=== PATIENT | male | born 1985 | race Caucasian/White ===

== ENCOUNTER 2018-12-18 00:53 | Inpatient (IN) | payer SELFPAY ==
[2018-12-18] VITALS (7 sets, daily range): BP systolic 126–160
[~2018-12-18] VITALS: Ht 185.4 cm; Wt 171.5 kg
[2018-12-18 01:52] LABS: BILIRUBIN,URINE 1+ (NEGATIVE); CLARITY/URINE CLEAR (CLEAR); COLOR,URINE YELLOW (YELLOW); GLUCOSE,URINE NEGATIVE (NEGATIVE); KETONES,URINE 2+ (NEGATIVE); LEUKOCYTE ESTERASE ,URINE NEGATIVE (NEGATIVE); NITRITE, URINE NEGATIVE (NEGATIVE); PROTEIN URINE NEGATIVE (NEGATIVE)
[2018-12-18 01:53] LABS: BLOOD, URINE TRACE (NEGATIVE)
[2018-12-18 01:56] LABS: BACTERIA,URINE RARE /HPF (None Seen); WBC,URINE 0-3 /HPF (0-3)
[2018-12-18] MEDS ORDERED: NACL 0.9% 1,000 ML IV ONE ×2 (02:02→04:00)
[2018-12-18 02:09] LABS: HEMATOCRIT 42.4 % (36-54); HEMOGLOBIN 14.7 g/dL (14.0-18.0); MEAN CORPUSCULAR HEMOGLOBIN 31 pg (27-31); MEAN CORPUSCULAR HGB CONC 35 % (32-36); MEAN CORPUSCULAR VOLUME 90 fL (79.0-98.0); PLATELET COUNT (AUTO) 188 K/uL (130-430); RED CELL DISTRIBUTION WIDTH 13.3 % (9.0-15.0); WHITE BLOOD COUNT (AUTO) 17.7 K/uL (4.8-10.8)
[2018-12-18] MEDS ORDERED: MORPHINE 4 MG/ML INJ. SYRINGE IVP ONE ×2 (02:15→03:30)
[2018-12-18 02:22] LABS: CREATININE 0.88 mg/dL (0.55-1.30); POTASSIUM 3.5 mmol/L (3.5-5.1)
[2018-12-18 02:26] LABS: ALBUMIN 3.3 g/dL (3.4-4.8); TOTAL BILIRUBIN 2.2 mg/dL (0.0-1.0)
[2018-12-18 02:31] LABS: INR 1.2 (0.80-1.20); PROTHROMBIN TIME 12.1 SECS (9.5-12.5)
[2018-12-18 02:44] LABS: ATYPICAL LYMPHOCYTES % 0 % (0-0); BAND % (MANUAL) 1 % (0-6); BASOPHILS % (MANUAL) 0 % (0-2); EOSINOPHILS % (MANUAL) 0 % (0-7); LYMPHOCYTES % (MANUAL) 4 % (20-46); METAMYELOCYTES % 2 % (0-0); MONOCYTES % (MANUAL) 3 % (0-11); MYELOCYTES % 1 % (0-0)
[2018-12-18] MEDS ORDERED: IOHEXOL 100 ML IV ONE (03:21)
[2018-12-18] MEDS ORDERED: PIPERACILLIN/TAZO 3.375 GM in NS 50 ML IV ONE (04:00)
[2018-12-18] MEDS ORDERED: VANCOMYCIN HCL 1,000 MG in NS 250 ML IV ONE (04:00)
[2018-12-18] MEDS ORDERED: PIPERACILLIN/TAZOBACTAM 3.375 GM/VIAL (ZOSYN) IV ONE ×2 (04:27)
[2018-12-18] MEDS ORDERED: VANCOMYCIN HCL 1000 MG/VIAL IV ONE ×2 (04:40)
[2018-12-18] MEDS ORDERED: MORPHINE 2 MG/ML INJ. SYRINGE IVP PRN ×3 (05:00→09:00)
[2018-12-18] MEDS: D5NS 1,000 ML IV SCH ×2 (05:34→14:24)
[2018-12-18] MEDS ORDERED: HYDROmorphone 1 MG INJ. 1 MG/ML AMPUL IVP PRN (07:45)
[2018-12-18] MEDS ORDERED: DOCUSATE SODIUM 100 MG CAPSULE PO PRN (09:00)
[2018-12-18] MEDS ORDERED: MAGNESIUM SULFATE 50 ML IV PRN (09:00)
[2018-12-18] MEDS ORDERED: ACETAMINOPHEN 325 MG TABLET PO PRN (09:00)
[2018-12-18] MEDS ORDERED: MUPIROCIN 2% TOPICAL OINTMENT 22 GM NS PRN (09:00)
[2018-12-18] MEDS ORDERED: LORazepam 2 MG/ML VIAL IVP PRN (09:00)
[2018-12-18] MEDS ORDERED: ZOLPIDEM TARTRATE 5 MG TABLET PO PRN (09:00)
[2018-12-18] MEDS ORDERED: ONDANSETRON HCL 4 MG/2 ML VIAL IVP PRN (09:00)
[2018-12-18] MEDS ORDERED: POTASSIUM CHLORIDE 20 MEQ TAB.PRT.SR PO PRN (09:00)
[2018-12-18] MEDS: PIPERACILLIN/TAZOBACTAM 4.5 GM/ D5W 100 ML IV SCH ×6 (09:33→21:13)
[2018-12-18] MEDS ORDERED: VANCOMYCIN HCL 2,000 MG in NS 500 ML IV ONE (10:00)
[2018-12-18] MEDS ORDERED: ZOSYN (PIPERACILLIN/TAZO) 3.375 GM in DEX-ISO (50ml) IV SCH (10:00)
[2018-12-18] MEDS ORDERED: KETOROLAC TROMETHAMINE 30 MG VIAL IVP PRN (11:30)
[2018-12-18] MEDS ORDERED: VANCOMYCIN HCL 1,750 MG in NS 500 ML IV SCH (18:00)
[2018-12-19] MEDS: D5NS 1,000 ML IV SCH ×3 (00:41→20:22)
[2018-12-19] MEDS: PIPERACILLIN/TAZOBACTAM 4.5 GM/ D5W 100 ML IV SCH ×8 (03:39→20:21)
[2018-12-19 05:00] VITALS: BP_SYST 141
[2018-12-19 06:10] LABS: BASOPHILS % (AUTO) 0.4 % (0.0-2.0); EOSINOPHILS # (AUTO) 0.4 K/uL (0.0-0.4); EOSINOPHILS % (AUTO) 3.9 % (0.0-4.0); HEMOGLOBIN 13.2 g/dL (14.0-18.0); LYMPHOCYTES # (AUTO) 1.8 K/uL (1.0-5.5); LYMPHOCYTES % (AUTO) 16.2 % (20.5-51.5); MEAN CORPUSCULAR HEMOGLOBIN 31 pg (27-31); MEAN CORPUSCULAR HGB CONC 34 % (32-36); MEAN CORPUSCULAR VOLUME 91 fL (79.0-98.0); MONOCYTES # (AUTO) 1.3 K/uL (0.0-1.0); MONOCYTES % (AUTO) 11.7 % (1.7-9.3); NEUTROPHILS # (AUTO) 7.6 K/uL (1.8-7.7); NEUTROPHILS % (AUTO) 67.8 % (40.0-70.0); PLATELET COUNT (AUTO) 196 K/uL (130-430); RED BLOOD CELL COUNT(AUTO) 4.27 MIL/uL (4.2-6.2); RED CELL DISTRIBUTION WIDTH 13.4 % (9.0-15.0)
[2018-12-19 06:14] LABS: CALCIUM 8.5 mg/dL (8.4-11.0); CREATININE 0.81 mg/dL (0.55-1.30); POTASSIUM 3.5 mmol/L (3.5-5.1)
[2018-12-19 06:53] LABS: WHITE BLOOD COUNT (AUTO) 11.2 K/uL (4.8-10.8)
[2018-12-19 07:40] VITALS: BP_SYST 108
[2018-12-19 12:05] VITALS: BP_SYST 130
[2018-12-19 16:05] VITALS: BP_SYST 121
[2018-12-19 20:00] VITALS: BP_SYST 131
[2018-12-20 00:31] VITALS: BP_SYST 155
[2018-12-20] MEDS: PIPERACILLIN/TAZOBACTAM 4.5 GM/ D5W 100 ML IV SCH ×6 (03:25→15:24)
[2018-12-20] MEDS: D5NS 1,000 ML IV SCH (05:48)
[2018-12-20 06:04] LABS: BASOPHILS # (AUTO) 0.1 K/uL (0.0-0.2); BASOPHILS % (AUTO) 0.8 % (0.0-2.0); EOSINOPHILS # (AUTO) 0.5 K/uL (0.0-0.4); EOSINOPHILS % (AUTO) 5.8 % (0.0-4.0); HEMATOCRIT 39.2 % (36-54); HEMOGLOBIN 13.5 g/dL (14.0-18.0); LYMPHOCYTES # (AUTO) 1.5 K/uL (1.0-5.5); LYMPHOCYTES % (AUTO) 18.3 % (20.5-51.5); MEAN CORPUSCULAR HEMOGLOBIN 31 pg (27-31); MEAN CORPUSCULAR HGB CONC 34 % (32-36); MEAN CORPUSCULAR VOLUME 90 fL (79.0-98.0); MONOCYTES # (AUTO) 0.8 K/uL (0.0-1.0); MONOCYTES % (AUTO) 9.7 % (1.7-9.3); NEUTROPHILS # (AUTO) 5.2 K/uL (1.8-7.7); NEUTROPHILS % (AUTO) 65.4 % (40.0-70.0); PLATELET COUNT (AUTO) 219 K/uL (130-430); RED BLOOD CELL COUNT(AUTO) 4.34 MIL/uL (4.2-6.2); RED CELL DISTRIBUTION WIDTH 13.2 % (9.0-15.0)
[2018-12-20 06:32] LABS: ALBUMIN 2.5 g/dL (3.4-4.8); CALCIUM 8.7 mg/dL (8.4-11.0); CREATININE 0.72 mg/dL (0.55-1.30); POTASSIUM 3.3 mmol/L (3.5-5.1); TOTAL BILIRUBIN 0.9 mg/dL (0.0-1.0)
[2018-12-20 08:04] VITALS: BP_SYST 132
[2018-12-20] MEDS ORDERED: DIPHENHYDRAMINE HCL 25 MG CAPSULE PO PRN (09:30)
[2018-12-20 12:06] VITALS: BP_SYST 130
[2018-12-20 14:15] VITALS: BP_SYST 100
[2018-12-20] MEDS ORDERED: METR500T PO ×2 (17:21→17:24)
[2018-12-20 17:31] VITALS: BP_SYST 100
== END 2018-12-20 18:20 | disposition home or self-care (01) | DRG 872 ==
LOC: SED 00:53 → SMU 04:48
PROVIDERS: ADMIT General Practice; ATTEND General Practice
DX: A41.9 Sepsis, unspecified organism (principal); Z68.42 Body mass index [BMI] 45.0-49.9, adult; E87.1 Hypo-osmolality and hyponatremia; E44.0 Moderate protein-calorie malnutrition; K57.20 Diverticulitis of large intestine with perforation and abscess without bleeding; E66.01 Morbid (severe) obesity due to excess calories; R31.9 Hematuria, unspecified; R73.9 Hyperglycemia, unspecified
CPT/HCPCS: 36415; 80048; 80053; 81000-TC; 82150-TC; 83036; 83605; 83690-TC; 83735-TC; 85007; 85025; 85027; 85610-TC; 87040-TC; 96365; 96368; 96375; 96376; 99285; J2270; J2543; J3370; J7030; J7040; J7042; J7060; Q9967

== ENCOUNTER 2019-01-30 21:04 | Emergency (ER) | payer SELFPAY ==
[~2019-01-30] VITALS: Ht 185.4 cm; Wt 172.4 kg
[~2019-01-30 21:04] MED LIST: METR500T PO
[2019-01-30 21:10] VITALS: BP_SYST 148
--- NOTE | 2019-01-30 21:10 | NUR ---
Patient triaged and placed in waiting room. VSS and patient appears in no acute distress at this time. Accompanied by FAM MEMBER, awaiting available bed, and MD notified of need for MSE.
[2019-01-30 22:22] LABS: BASOPHILS # (AUTO) 0.1 K/uL (0.0-0.2); BASOPHILS % (AUTO) 0.9 % (0.0-2.0); EOSINOPHILS # (AUTO) 0.1 K/uL (0.0-0.4); EOSINOPHILS % (AUTO) 1.4 % (0.0-4.0); HEMATOCRIT 46.3 % (36-54); HEMOGLOBIN 15.9 g/dL (14.0-18.0); LYMPHOCYTES # (AUTO) 2.3 K/uL (1.0-5.5); LYMPHOCYTES % (AUTO) 21.3 % (20.5-51.5); MEAN CORPUSCULAR HEMOGLOBIN 31 pg (27-31); MEAN CORPUSCULAR HGB CONC 34 % (32-36); MEAN CORPUSCULAR VOLUME 90 fL (79.0-98.0); MONOCYTES # (AUTO) 1.1 K/uL (0.0-1.0); MONOCYTES % (AUTO) 10.6 % (1.7-9.3); NEUTROPHILS # (AUTO) 7.1 K/uL (1.8-7.7); NEUTROPHILS % (AUTO) 65.8 % (40.0-70.0); PLATELET COUNT (AUTO) 204 K/uL (130-430); RED BLOOD CELL COUNT(AUTO) 5.14 MIL/uL (4.2-6.2); RED CELL DISTRIBUTION WIDTH 14.6 % (9.0-15.0); WHITE BLOOD COUNT (AUTO) 10.8 K/uL (4.8-10.8)
[2019-01-30 23:04] LABS: ALBUMIN 3.7 g/dL (3.4-4.8); CALCIUM 8.9 mg/dL (8.4-11.0); CREATININE 0.75 mg/dL (0.55-1.30); POTASSIUM 3.5 mmol/L (3.5-5.1); TOTAL BILIRUBIN 2.6 mg/dL (0.0-1.0)
--- NOTE | 2019-01-30 23:58 | NUR ---
Patient to ER bed 5 to gown for evaluation. Side rails up. Report given to Jaylene OSMAN.
--- NOTE | 2019-01-31 00:02 | NUR ---
Patient arrived via POV, AAOx4, and ambulatory with steady gait. Patient c/c of RLQ abdominal pain since AM. Patient states pain is pressure like, and comes "in waves." No alleviating or exacerbating factors noted. Patient sates no nausea, vomiting, diarrhea, SOB, fever, chest pain. Patient states he has had recent stressors and feels like this may be related to this. Will continue to follow up and monitor.
--- NOTE | 2019-01-31 00:34 | NUR ---
ER at bedside examining patient.
[2019-01-31 00:55] VITALS: BP_SYST 148
--- NOTE | 2019-01-31 00:55 | NUR ---
Patient given written and verbal discharge instructions and verbalizes understanding. ER MD discussed with patient the results and treatment provided. Patient in stable condition. ID arm band removed. No Rx given. Patient educated on pain management and to follow up with PMD. Pain Scale 0/10. Opportunity for questions provided and answered. Medication side effect fact sheet provided.
[2019-01-31 01:48] LABS: BILIRUBIN,URINE 1+ (NEGATIVE); BLOOD, URINE NEGATIVE (NEGATIVE); CLARITY/URINE CLEAR (CLEAR); COLOR,URINE YELLOW (YELLOW); GLUCOSE,URINE NEGATIVE (NEGATIVE); KETONES,URINE 1+ (NEGATIVE); LEUKOCYTE ESTERASE ,URINE NEGATIVE (NEGATIVE); NITRITE, URINE NEGATIVE (NEGATIVE); PH,URINE 5.5 (5.0-8.0); PROTEIN URINE NEGATIVE (NEGATIVE)
== END 2019-01-31 00:55 | disposition home or self-care (01) ==
LOC: SED 21:04
DX: R10.31 Right lower quadrant pain (principal)
CPT/HCPCS: 36415; 80053; 81003; 83690-TC; 85025; 99283

== ENCOUNTER 2019-02-04 14:16 | Emergency (ER) | payer MEDICAID ==
[~2019-02-04] VITALS: Ht 185.4 cm; Wt 172.4 kg
[2019-02-04 14:22] VITALS: BP_SYST 150
[2019-02-04 15:20] VITALS: BP_SYST 147
== END 2019-02-04 15:20 | disposition home or self-care (01) ==
LOC: SED 14:16
DX: K57.92 Diverticulitis of intestine, part unspecified, without perforation or abscess without bleeding (principal); R03.0 Elevated blood-pressure reading, without diagnosis of hypertension
CPT/HCPCS: 99283

== ENCOUNTER 2019-03-12 02:22 | Emergency (ER) | payer SELFPAY ==
[~2019-03-12] VITALS: Ht 185.4 cm; Wt 172.4 kg
[2019-03-12 02:36] VITALS: BP_SYST 144
--- NOTE | 2019-03-12 02:41 | NUR ---
Patient triaged and placed in waiting room. VSS and patient appears in no acute distress at this time. Accompanied by self, awaiting available bed, and MD notified of need for MSE.
[2019-03-12 03:01] LABS: BASOPHILS # (AUTO) 0.2 K/uL (0.0-0.2); BASOPHILS % (AUTO) 1.4 % (0.0-2.0); EOSINOPHILS # (AUTO) 0.5 K/uL (0.0-0.4); EOSINOPHILS % (AUTO) 4.3 % (0.0-4.0); HEMATOCRIT 45.9 % (36-54); HEMOGLOBIN 15.6 g/dL (14.0-18.0); LYMPHOCYTES # (AUTO) 2.5 K/uL (1.0-5.5); LYMPHOCYTES % (AUTO) 21.7 % (20.5-51.5); MEAN CORPUSCULAR HEMOGLOBIN 31 pg (27-31); MEAN CORPUSCULAR HGB CONC 34 % (32-36); MEAN CORPUSCULAR VOLUME 91 fL (79.0-98.0); MONOCYTES # (AUTO) 1.1 K/uL (0.0-1.0); MONOCYTES % (AUTO) 10.1 % (1.7-9.3); NEUTROPHILS # (AUTO) 7.1 K/uL (1.8-7.7); NEUTROPHILS % (AUTO) 62.5 % (40.0-70.0); PLATELET COUNT (AUTO) 216 K/uL (130-430); RED BLOOD CELL COUNT(AUTO) 5.05 MIL/uL (4.2-6.2); RED CELL DISTRIBUTION WIDTH 14.7 % (9.0-15.0); WHITE BLOOD COUNT (AUTO) 11.4 K/uL (4.8-10.8)
[2019-03-12 03:21] LABS: CALCIUM 8.7 mg/dL (8.4-11.0); CREATININE 0.86 mg/dL (0.55-1.30); POTASSIUM 3.5 mmol/L (3.5-5.1)
[2019-03-12 03:28] LABS: ALBUMIN 3.4 g/dL (3.4-4.8); TOTAL BILIRUBIN 1.3 mg/dL (0.0-1.0)
[2019-03-12 03:53] LABS: BILIRUBIN,URINE NEGATIVE (NEGATIVE); BLOOD, URINE NEGATIVE (NEGATIVE); CLARITY/URINE CLEAR (CLEAR); COLOR,URINE YELLOW (YELLOW); GLUCOSE,URINE NEGATIVE (NEGATIVE); KETONES,URINE NEGATIVE (NEGATIVE); LEUKOCYTE ESTERASE ,URINE NEGATIVE (NEGATIVE); NITRITE, URINE NEGATIVE (NEGATIVE); PROTEIN URINE NEGATIVE (NEGATIVE)
--- NOTE | 2019-03-12 05:22 | NUR ---
33 y/o male presents to ED w/ c/o of abdominal pain that has been worsening all night. Pt has Hx of diverticulitis w/ associated loose stool. Pt states he took [place] for the pain with some relief. Pt states pain is 3/10. Pt denies any fever chills, N/V. Pt states pain gets worse when eating. Will continue to monitor.
--- NOTE | 2019-03-12 05:22 | NUR ---
Pt placed to ER bed 03. Report given to kate Chester RN.
--- NOTE | 2019-03-12 05:24 | NUR ---
Dr. Perdue at bedside.
[2019-03-12] MEDS ORDERED: KETOROLAC TROMETHAMINE 60 MG/2 ML VIAL IM ONE (05:30)
--- NOTE | 2019-03-12 06:25 | NUR ---
Patient given written and verbal discharge instructions and verbalizes understanding. ER MD discussed with patient the results and treatment provided. Patient in stable condition. ID arm band removed. IV catheter removed intact and dressing applied, no active bleeding. Rx of Derwent given. Patient educated on pain management and to follow up with PMD. Pain Scale 1/10. Opportunity for questions provided and answered. Medication side effect fact sheet provided.
[2019-03-12 06:26] VITALS: BP_SYST 132
== END 2019-03-12 06:26 | disposition home or self-care (01) ==
LOC: SED 02:22
DX: K57.90 Diverticulosis of intestine, part unspecified, without perforation or abscess without bleeding (principal)
CPT/HCPCS: 36415; 80053; 81003; 83690; 85025; 96372; 99283; J1885

== ENCOUNTER 2019-03-15 02:55 | Emergency (ER) | payer SELFPAY ==
[~2019-03-15] VITALS: Ht 210.8 cm; Wt 172.4 kg
[2019-03-15 02:55] VITALS: BP_SYST 143
[2019-03-15] MEDS ORDERED: KETOROLAC TROMETHAMINE 60 MG/2 ML VIAL IM ONE (03:30)
[2019-03-15] MEDS ORDERED: ACETAMINOPHEN WITH CODEINE 12.5 ML UDC PO ONE (04:15)
[2019-03-15 04:53] LABS: STREPTOCOCCUS A SCREEN (RAPID) POSITIVE (NEGATIVE)
[2019-03-15 05:05] LABS: INFLUENZA A&B ANTIGEN SCREEN NEGATIVE FOR A & B (NEGATIVE)
[2019-03-15 05:12] VITALS: BP_SYST 143
== END 2019-03-15 05:12 | disposition home or self-care (01) ==
LOC: SED 02:55
DX: J02.9 Acute pharyngitis, unspecified (principal)
CPT/HCPCS: 86403; 86710; 96372; 99283; J1885; 36415

== ENCOUNTER 2019-05-11 05:14 | Inpatient (IN) | payer OTHER ==
[~2019-05-11] VITALS: Ht 185.4 cm; Wt 170.2 kg
[2019-05-11 05:20] VITALS: BP_SYST 165
[2019-05-11] MEDS ORDERED: fentaNYL CITRATE/PF 100 MCG/2 ML AMP IM ONE (05:45)
[2019-05-11 07:30] LABS: BASOPHILS # (AUTO) 0.1 K/uL (0.0-0.2); BASOPHILS % (AUTO) 0.6 % (0.0-2.0); EOSINOPHILS # (AUTO) 0.1 K/uL (0.0-0.4); EOSINOPHILS % (AUTO) 1.3 % (0.0-4.0); HEMATOCRIT 46.5 % (36-54); HEMOGLOBIN 16.1 g/dL (14.0-18.0); LYMPHOCYTES # (AUTO) 1.1 K/uL (1.0-5.5); LYMPHOCYTES % (AUTO) 12.8 % (20.5-51.5); MEAN CORPUSCULAR HEMOGLOBIN 31 pg (27-31); MEAN CORPUSCULAR HGB CONC 35 % (32-36); MEAN CORPUSCULAR VOLUME 90 fL (79.0-98.0); MONOCYTES # (AUTO) 0.4 K/uL (0.0-1.0); MONOCYTES % (AUTO) 4.8 % (1.7-9.3); NEUTROPHILS # (AUTO) 7.1 K/uL (1.8-7.7); NEUTROPHILS % (AUTO) 80.5 % (40.0-70.0); PLATELET COUNT (AUTO) 179 K/uL (130-430); RED BLOOD CELL COUNT(AUTO) 5.19 MIL/uL (4.2-6.2); WHITE BLOOD COUNT (AUTO) 8.8 K/uL (4.8-10.8)
[2019-05-11 07:43] LABS: CALCIUM 8.4 mg/dL (8.4-11.0); CREATININE 0.82 mg/dL (0.55-1.30); POTASSIUM 3.7 mmol/L (3.5-5.1)
[2019-05-11 07:48] LABS: ALBUMIN 3.6 g/dL (3.4-4.8); TOTAL BILIRUBIN 0.6 mg/dL (0.0-1.0)
[2019-05-11] MEDS ORDERED: ONDANSETRON HCL 4 MG/2 ML VIAL IVP ONE (08:15)
[2019-05-11] MEDS ORDERED: fentaNYL CITRATE/PF 100 MCG/2 ML AMP IVP ONE (08:15)
[2019-05-11] MEDS ORDERED: metroNIDAZOLE 500 mg/NS 100 ML IV ONE (08:15)
[2019-05-11] MEDS ORDERED: CIPROFLOXACIN LACT 400 MG/D5W 200 ML IV ONE (08:15)
[2019-05-11] MEDS ORDERED: NACL 0.9% 1,000 ML IV ONE (08:15)
[2019-05-11] MEDS: MORPHINE 4 MG/ML INJ. SYRINGE IVP PRN ×2 (10:00→18:42)
[2019-05-11] MEDS: KETOROLAC TROMETHAMINE 15 MG VIAL IVP PRN ×3 (10:27→22:51)
[2019-05-11] MEDS: ONDANSETRON HCL 4 MG/2 ML VIAL IVP PRN (11:15)
[2019-05-11 12:10] VITALS: BP_SYST 129
[2019-05-11 13:21] LABS: BILIRUBIN,URINE NEGATIVE (NEGATIVE); BLOOD, URINE NEGATIVE (NEGATIVE); CLARITY/URINE CLEAR (CLEAR); COLOR,URINE YELLOW (YELLOW); GLUCOSE,URINE NEGATIVE (NEGATIVE); KETONES,URINE NEGATIVE (NEGATIVE); LEUKOCYTE ESTERASE ,URINE NEGATIVE (NEGATIVE); NITRITE, URINE NEGATIVE (NEGATIVE); PROTEIN URINE TRACE (NEGATIVE); UROBILINOGEN,URINE 0.2 (0.2-1.0)
[2019-05-11 13:25] LABS: BACTERIA,URINE FEW /HPF (None Seen); MUCUS,URINE 2+ /LPF (None Seen); RBC,URINE 0-3 /HPF (0-3); WBC,URINE 0-3 /HPF (0-3)
[2019-05-11 13:40] LABS: BARBITURATE, URINE NEGATIVE (NEG <=200); BENZODIAZEPINE, URINE NEGATIVE (NEG <=150); CANNABINOID, URINE NEGATIVE (NEG <=50); COCAINE, URINE NEGATIVE (NEG <=150); METHAMPHETAMINES SCREEN,URINE NEGATIVE (NEG <=500); OPIATE, URINE POSITIVE (NEG <=100); PHENCYCLIDINE SCREEN,URINE NEGATIVE (NEG <=25); UR TRICYCLIC ANTIDEPRESSANTS NEGATIVE (NEG <=300); URINE AMPHETAMINE NEGATIVE (NEG <=500); URINE METHADONE NEGATIVE (NEG <=200); URINE OXYCODONE SCREEN NEGATIVE (NEG <=100); URINE PROPOXYPHENE SCREEN NEGATIVE (NEG <=300)
[2019-05-11] MEDS: metroNIDAZOLE 500 mg/NS 100 ML IV SCH ×2 (15:35→22:50)
[2019-05-11] MEDS: D5LR 1,000 ML IV SCH ×2 (15:35→16:34)
[2019-05-11 16:20] VITALS: BP_SYST 128
[2019-05-11 18:07] VITALS: BP_SYST 104
[2019-05-11 20:00] VITALS: BP_SYST 132
[2019-05-11] MEDS ORDERED: BISACODYL 10 MG/SUPPOSITORY RC PRN (20:00)
[2019-05-11] MEDS ORDERED: BISACODYL 10 MG/SUPPOSITORY RC ONE (20:31)
[2019-05-11] MEDS: CIPROFLOXACIN LACT 400 MG/D5W 200 ML IV SCH (20:36)
[2019-05-12] VITALS: BP_SYST 130
[2019-05-12] MEDS: D5LR 1,000 ML IV SCH ×4 (00:01→18:56)
[2019-05-12] MEDS: ONDANSETRON HCL 4 MG/2 ML VIAL IVP PRN ×3 (01:27→22:48)
[2019-05-12] MEDS: MORPHINE 4 MG/ML INJ. SYRINGE IVP PRN ×3 (01:28→18:33)
[2019-05-12] MEDS: metroNIDAZOLE 500 mg/NS 100 ML IV SCH ×3 (05:24→22:17)
[2019-05-12] MEDS: KETOROLAC TROMETHAMINE 15 MG VIAL IVP PRN ×2 (06:47→15:19)
[2019-05-12 08:00] VITALS: BP_SYST 106
[2019-05-12] MEDS: CIPROFLOXACIN LACT 400 MG/D5W 200 ML IV SCH (08:36)
[2019-05-12 08:43] LABS: HEMATOCRIT 43.4 % (36-54); HEMOGLOBIN 14.9 g/dL (14.0-18.0); MEAN CORPUSCULAR HEMOGLOBIN 31 pg (27-31); MEAN CORPUSCULAR HGB CONC 34 % (32-36); MEAN CORPUSCULAR VOLUME 89 fL (79.0-98.0); PLATELET COUNT (AUTO) 155 K/uL (130-430); RED BLOOD CELL COUNT(AUTO) 4.87 MIL/uL (4.2-6.2); RED CELL DISTRIBUTION WIDTH 14.8 % (9.0-15.0); WHITE BLOOD COUNT (AUTO) 15.6 K/uL (4.8-10.8)
[2019-05-12 08:54] LABS: ALBUMIN 2.8 g/dL (3.4-4.8); CALCIUM 8.1 mg/dL (8.4-11.0); CREATININE 1.23 mg/dL (0.55-1.30); POTASSIUM 3.2 mmol/L (3.5-5.1); TOTAL BILIRUBIN 2.3 mg/dL (0.0-1.0)
[2019-05-12 11:19] LABS: ERYTHROCYTE SEDIMENTATION RATE 18 MM/HR (0-15)
[2019-05-12 12:00] VITALS: BP_SYST 104
[2019-05-12] MEDS ORDERED: POTASSIUM CHLORIDE 40 MEQ, LIDOCAINE JECT 2% PF 100 MG 50 MG in NS 250 ML IV ONE (12:00)
[2019-05-12 12:19] LABS: BAND % (MANUAL) 38 % (0-6); BASOPHILS % (MANUAL) 0 % (0-2); EOSINOPHILS % (MANUAL) 0 % (0-7); LYMPHOCYTES % (MANUAL) 5 % (20-46); MONOCYTES % (MANUAL) 4 % (0-11)
[2019-05-12 12:30] VITALS: BP_SYST 118
[2019-05-12] MEDS ORDERED: PIPERACILLIN/TAZO 4.5GM/DEX-IS 100 ML IV ONE (14:15)
[2019-05-12 18:42] VITALS: BP_SYST 130
[2019-05-12] MEDS: PIPERACILLIN/TAZO 4.5GM/DEX-IS 100 ML IV SCH (22:18)
[2019-05-12 22:35] VITALS: BP_SYST 133
[2019-05-13 03:57] VITALS: BP_SYST 133
[2019-05-13] MEDS: D5LR 1,000 ML IV SCH ×4 (06:03→21:10)
[2019-05-13] MEDS: metroNIDAZOLE 500 mg/NS 100 ML IV SCH ×3 (06:04→23:44)
[2019-05-13] MEDS: PIPERACILLIN/TAZO 4.5GM/DEX-IS 100 ML IV SCH ×3 (06:07→21:19)
[2019-05-13 07:24] LABS: BASOPHILS % (AUTO) 0.2 % (0.0-2.0); HEMATOCRIT 43.4 % (36-54); HEMOGLOBIN 14.9 g/dL (14.0-18.0); LYMPHOCYTES # (AUTO) 0.9 K/uL (1.0-5.5); MEAN CORPUSCULAR HEMOGLOBIN 31 pg (27-31); MEAN CORPUSCULAR HGB CONC 34 % (32-36); MEAN CORPUSCULAR VOLUME 90 fL (79.0-98.0); MONOCYTES # (AUTO) 0.9 K/uL (0.0-1.0); MONOCYTES % (AUTO) 5.3 % (1.7-9.3); NEUTROPHILS # (AUTO) 15.6 K/uL (1.8-7.7); NEUTROPHILS % (AUTO) 89.5 % (40.0-70.0); PLATELET COUNT (AUTO) 125 K/uL (130-430); RED BLOOD CELL COUNT(AUTO) 4.83 MIL/uL (4.2-6.2); WHITE BLOOD COUNT (AUTO) 17.4 K/uL (4.8-10.8)
[2019-05-13] MEDS: ONDANSETRON HCL 4 MG/2 ML VIAL IVP PRN ×2 (07:31→21:30)
[2019-05-13 07:49] LABS: ALBUMIN 2.7 g/dL (3.4-4.8); CALCIUM 8.4 mg/dL (8.4-11.0); CREATININE 1.36 mg/dL (0.55-1.30); POTASSIUM 3.8 mmol/L (3.5-5.1); TOTAL BILIRUBIN 1.7 mg/dL (0.0-1.0)
[2019-05-13 08:09] VITALS: BP_SYST 135
[2019-05-13] MEDS: MORPHINE 4 MG/ML INJ. SYRINGE IVP PRN ×4 (09:15→21:36)
[2019-05-13] MEDS ORDERED: NACL 0.9% 1,000 ML IV ONE (11:30)
[2019-05-13 13:30] VITALS: BP_SYST 122
[2019-05-13] MEDS: KETOROLAC TROMETHAMINE 15 MG VIAL IVP PRN (14:11)
[2019-05-13 16:23] VITALS: BP_SYST 126
[2019-05-13] MEDS ORDERED: FUROSEMIDE 20 MG/2 ML VIAL IVP ONE (18:45)
[2019-05-13] MEDS ORDERED: FUROSEMIDE 20 MG/2 ML VIAL ONE (18:55)
[2019-05-13 19:21] LABS: BASOPHILS # (AUTO) 0.1 K/uL (0.0-0.2); BASOPHILS % (AUTO) 0.4 % (0.0-2.0); HEMATOCRIT 41.8 % (36-54); HEMOGLOBIN 14.3 g/dL (14.0-18.0); LYMPHOCYTES # (AUTO) 0.8 K/uL (1.0-5.5); LYMPHOCYTES % (AUTO) 5.3 % (20.5-51.5); MEAN CORPUSCULAR HEMOGLOBIN 31 pg (27-31); MEAN CORPUSCULAR HGB CONC 34 % (32-36); MEAN CORPUSCULAR VOLUME 89 fL (79.0-98.0); MONOCYTES # (AUTO) 1.2 K/uL (0.0-1.0); MONOCYTES % (AUTO) 7.5 % (1.7-9.3); NEUTROPHILS # (AUTO) 13.7 K/uL (1.8-7.7); NEUTROPHILS % (AUTO) 86.8 % (40.0-70.0); PLATELET COUNT (AUTO) 113 K/uL (130-430); RED BLOOD CELL COUNT(AUTO) 4.68 MIL/uL (4.2-6.2); RED CELL DISTRIBUTION WIDTH 15.2 % (9.0-15.0); WHITE BLOOD COUNT (AUTO) 15.8 K/uL (4.8-10.8)
[2019-05-13 19:39] LABS: CALCIUM 8.5 mg/dL (8.4-11.0); CREATININE 1.18 mg/dL (0.55-1.30); POTASSIUM 3.6 mmol/L (3.5-5.1)
[2019-05-13 19:45] LABS: ALBUMIN 2.4 g/dL (3.4-4.8); TOTAL BILIRUBIN 1.4 mg/dL (0.0-1.0)
[2019-05-13] MEDS ORDERED: IPRATROPIUM/ALBUTEROL SULFATE 3 ML AMPUL.NEB (DUONEB) INH PRN (19:45)
[2019-05-13] MEDS ORDERED: AZITHROMYCIN 500 MG/VIAL (ZITHROMAX) IV ONE (21:46)
[2019-05-13 22:38] VITALS: BP_SYST 128
[2019-05-13] MEDS: IPRATROPIUM/ALBUTEROL SULFATE 3 ML AMPUL.NEB (DUONEB) INH SCH (23:11)
[2019-05-14] VITALS (8 sets, daily range): BP systolic 112–155
[2019-05-14] MEDS: IPRATROPIUM/ALBUTEROL SULFATE 3 ML AMPUL.NEB (DUONEB) INH SCH ×6 (02:50→23:42)
[2019-05-14] MEDS: MORPHINE 4 MG/ML INJ. SYRINGE IVP PRN ×4 (03:20→22:21)
[2019-05-14] MEDS: ONDANSETRON HCL 4 MG/2 ML VIAL IVP PRN ×2 (03:20→09:18)
[2019-05-14] MEDS: metroNIDAZOLE 500 mg/NS 100 ML IV SCH ×3 (05:36→22:21)
[2019-05-14] MEDS: D5LR 1,000 ML IV SCH ×3 (05:47→22:30)
[2019-05-14] MEDS: PIPERACILLIN/TAZO 4.5GM/DEX-IS 100 ML IV SCH ×3 (06:54→22:20)
[2019-05-14 08:04] LABS: WHITE BLOOD COUNT (AUTO) 16.9 K/uL (4.8-10.8)
[2019-05-14 08:05] LABS: BASOPHILS % (AUTO) 0.2 % (0.0-2.0); EOSINOPHILS % (AUTO) 0.2 % (0.0-4.0); HEMATOCRIT 39.4 % (36-54); HEMOGLOBIN 13.3 g/dL (14.0-18.0); LYMPHOCYTES # (AUTO) 1.2 K/uL (1.0-5.5); LYMPHOCYTES % (AUTO) 6.9 % (20.5-51.5); MEAN CORPUSCULAR HEMOGLOBIN 30 pg (27-31); MEAN CORPUSCULAR HGB CONC 34 % (32-36); MEAN CORPUSCULAR VOLUME 90 fL (79.0-98.0); MONOCYTES # (AUTO) 1.1 K/uL (0.0-1.0); MONOCYTES % (AUTO) 6.8 % (1.7-9.3); NEUTROPHILS # (AUTO) 14.5 K/uL (1.8-7.7); NEUTROPHILS % (AUTO) 85.9 % (40.0-70.0); PLATELET COUNT (AUTO) 124 K/uL (130-430); RED CELL DISTRIBUTION WIDTH 15.6 % (9.0-15.0)
[2019-05-14 08:16] LABS: INR 1.2 (0.80-1.20); PROTHROMBIN TIME 12.2 SECS (9.5-12.5)
[2019-05-14 09:08] LABS: CALCIUM 8.1 mg/dL (8.4-11.0); CREATININE 0.94 mg/dL (0.55-1.30); POTASSIUM 3.4 mmol/L (3.5-5.1)
[2019-05-14] MEDS ORDERED: POTASSIUM CHLORIDE 40 MEQ, LIDOCAINE JECT 2% PF 100 MG 50 MG in NS 250 ML IV ONE (11:30)
[2019-05-14] MEDS ORDERED: BUPIVACAINE LIPOSOME/PF 266 MG/20 ML VIAL INFIL ONE (18:07)
[2019-05-14] MEDS ORDERED: SUCCINYLCHOLINE CHLORIDE 20 MG/ML(QUELICIN) IVP ONE (18:10)
[2019-05-14] MEDS ORDERED: SEVOFLURANE 15 MIN GAS INH ONE (18:10)
[2019-05-14] MEDS ORDERED: PROPOFOL 200MG/ 20ML VIAL (DIPRIVAN) IV ONE (18:10)
[2019-05-14] MEDS ORDERED: DEXAMETHASONE SOD PHOSPHATE 4 MG/ML VIAL IVP ONE (18:10)
[2019-05-14] MEDS ORDERED: NS IRRIG SOLN 1000 ML IR ONE (18:10)
[2019-05-14] MEDS ORDERED: MEPERIDINE HCL/PF 100 MG/ML AMP IM ONE (18:10)
[2019-05-14] MEDS ORDERED: fentaNYL CITRATE 250 MCG/5 ML AMP IV ONE (18:10)
[2019-05-14] MEDS ORDERED: LR 1,000 ML IV.SOLN IV ONE (18:10)
[2019-05-14] MEDS ORDERED: ROCURONIUM BROMIDE 10 MG/ML (ZEMURON) IV ONE (18:10)
[2019-05-14] MEDS ORDERED: ONDANSETRON HCL 4 MG/2 ML VIAL IVP PRN (19:30)
[2019-05-14] MEDS ORDERED: fentaNYL CITRATE/PF 100 MCG/2 ML AMP IVP PRN (19:30)
[2019-05-14] MEDS: fentaNYL CITRATE/PF 100 MCG/2 ML AMP IVP PRN ×3 (20:59→21:21)
[2019-05-14] MEDS ORDERED: fentaNYL CITRATE/PF 100 MCG/2 ML AMP ONE ×2 (21:14→21:35)
[2019-05-14] MEDS ORDERED: LABETALOL 100 MG/ 20ML VIAL IVP SCH (21:45)
[2019-05-14] MEDS: AZITHROMYCIN 500 MG in NS 250 ML IV SCH (22:26)
[2019-05-15] VITALS (15 sets, daily range): BP systolic 131–163
[2019-05-15] MEDS: MORPHINE 4 MG/ML INJ. SYRINGE IVP PRN ×6 (00:50→20:21)
[2019-05-15] MEDS: IPRATROPIUM/ALBUTEROL SULFATE 3 ML AMPUL.NEB (DUONEB) INH SCH ×6 (03:00→23:00)
[2019-05-15] MEDS: PIPERACILLIN/TAZO 4.5GM/DEX-IS 100 ML IV SCH ×3 (05:35→22:40)
[2019-05-15] MEDS: metroNIDAZOLE 500 mg/NS 100 ML IV SCH ×3 (05:36→21:20)
[2019-05-15 07:02] LABS: BASOPHILS % (AUTO) 0.1 % (0.0-2.0); HEMOGLOBIN 13.2 g/dL (14.0-18.0); LYMPHOCYTES # (AUTO) 0.8 K/uL (1.0-5.5); LYMPHOCYTES % (AUTO) 5.1 % (20.5-51.5); MEAN CORPUSCULAR HEMOGLOBIN 30 pg (27-31); MEAN CORPUSCULAR HGB CONC 34 % (32-36); MEAN CORPUSCULAR VOLUME 90 fL (79.0-98.0); MONOCYTES # (AUTO) 1.1 K/uL (0.0-1.0); MONOCYTES % (AUTO) 6.9 % (1.7-9.3); NEUTROPHILS # (AUTO) 14.3 K/uL (1.8-7.7); NEUTROPHILS % (AUTO) 87.9 % (40.0-70.0); PLATELET COUNT (AUTO) 164 K/uL (130-430); RED BLOOD CELL COUNT(AUTO) 4.33 MIL/uL (4.2-6.2); RED CELL DISTRIBUTION WIDTH 15.6 % (9.0-15.0); WHITE BLOOD COUNT (AUTO) 16.2 K/uL (4.8-10.8)
[2019-05-15 07:08] LABS: ALBUMIN 2.1 g/dL (3.4-4.8); CALCIUM 7.9 mg/dL (8.4-11.0); CREATININE 0.72 mg/dL (0.55-1.30); POTASSIUM 3.9 mmol/L (3.5-5.1); TOTAL BILIRUBIN 1.3 mg/dL (0.0-1.0)
[2019-05-15] MEDS: ENOXAPARIN SODIUM 40 MG/0.4 ML SYRINGE SUBCUT SCH (09:04)
[2019-05-15] MEDS: D5LR 1,000 ML IV SCH ×2 (13:00→14:38)
[2019-05-15] MEDS: ONDANSETRON HCL 4 MG/2 ML VIAL IVP PRN (20:20)
[2019-05-15] MEDS: ACETAMINOPHEN/CODEINE 300 MG-30 MG TABLET PO PRN (22:45)
[2019-05-16] VITALS (7 sets, daily range): BP systolic 142–162
[2019-05-16] MEDS: D5LR 1,000 ML IV SCH ×3 (00:49→11:10)
[2019-05-16] MEDS: ONDANSETRON HCL 4 MG/2 ML VIAL IVP PRN ×3 (00:55→23:13)
[2019-05-16] MEDS: MORPHINE 4 MG/ML INJ. SYRINGE IVP PRN ×6 (00:56→23:13)
[2019-05-16] MEDS: IPRATROPIUM/ALBUTEROL SULFATE 3 ML AMPUL.NEB (DUONEB) INH SCH ×6 (03:00→23:00)
[2019-05-16] MEDS: metroNIDAZOLE 500 mg/NS 100 ML IV SCH ×3 (05:09→21:56)
[2019-05-16] MEDS: PIPERACILLIN/TAZO 4.5GM/DEX-IS 100 ML IV SCH ×3 (06:10→22:48)
[2019-05-16 06:41] LABS: ALANINE AMINOTRANSFERASE 16 U/L (12-78); ASPARTATE AMINOTRANSFERASE 21 U/L (10-37); CALCIUM 7.7 mg/dL (8.4-11.0); CHLORIDE 103 mmol/L (98-107); GLUCOSE 166 mg/dL (70-99); POTASSIUM 3.2 mmol/L (3.5-5.1); SODIUM SERUM 139 mmol/L (136-145); UREA NITROGEN, BLOOD 12 mg/dL (8-21)
[2019-05-16 06:55] LABS: ANION GAP < 3 (5-15); GFR AFRICAN AMERICAN 165 mL/min (>90)
[2019-05-16 07:00] LABS: BASOPHILS % (AUTO) 0.3 % (0.0-2.0); EOSINOPHILS # (AUTO) 0.4 K/uL (0.0-0.4); EOSINOPHILS % (AUTO) 3.5 % (0.0-4.0); HEMATOCRIT 36.8 % (36-54); HEMOGLOBIN 12.7 g/dL (14.0-18.0); LYMPHOCYTES # (AUTO) 1.5 K/uL (1.0-5.5); LYMPHOCYTES % (AUTO) 14.3 % (20.5-51.5); MEAN CORPUSCULAR HEMOGLOBIN 31 pg (27-31); MEAN CORPUSCULAR HGB CONC 34 % (32-36); MEAN CORPUSCULAR VOLUME 90 fL (79.0-98.0); MONOCYTES # (AUTO) 1.5 K/uL (0.0-1.0); MONOCYTES % (AUTO) 14.2 % (1.7-9.3); NEUTROPHILS # (AUTO) 7.2 K/uL (1.8-7.7); NEUTROPHILS % (AUTO) 67.7 % (40.0-70.0); PLATELET COUNT (AUTO) 187 K/uL (130-430); RED BLOOD CELL COUNT(AUTO) 4.11 MIL/uL (4.2-6.2); RED CELL DISTRIBUTION WIDTH 15.9 % (9.0-15.0); WHITE BLOOD COUNT (AUTO) 10.6 K/uL (4.8-10.8)
[2019-05-16] MEDS: KETOROLAC TROMETHAMINE 15 MG VIAL IVP PRN (09:16)
[2019-05-16] MEDS: ENOXAPARIN SODIUM 40 MG/0.4 ML SYRINGE SUBCUT SCH (09:26)
[2019-05-16] MEDS ORDERED: POTASSIUM CHLORIDE 40 MEQ in NS 250 ML IV ONE (16:00)
[2019-05-16] MEDS ORDERED: POTASSIUM CHLORIDE 20 MEQ TAB.PRT.SR PO ONE (16:45)
[2019-05-16] MEDS: 0.45% NACL 1,000 ML IV SCH (17:07)
[2019-05-16] MEDS: ACETAMINOPHEN/CODEINE 300 MG-30 MG TABLET PO PRN (21:54)
[2019-05-17 00:15] VITALS: BP_SYST 142
[2019-05-17] MEDS: IPRATROPIUM/ALBUTEROL SULFATE 3 ML AMPUL.NEB (DUONEB) INH SCH ×6 (03:00→23:00)
[2019-05-17] MEDS: metroNIDAZOLE 500 mg/NS 100 ML IV SCH ×3 (05:38→21:00)
[2019-05-17] MEDS: MORPHINE 4 MG/ML INJ. SYRINGE IVP PRN ×4 (06:23→20:59)
[2019-05-17 06:34] LABS: BASOPHILS # (AUTO) 0.1 K/uL (0.0-0.2); BASOPHILS % (AUTO) 0.6 % (0.0-2.0); EOSINOPHILS # (AUTO) 0.8 K/uL (0.0-0.4); EOSINOPHILS % (AUTO) 5.9 % (0.0-4.0); HEMATOCRIT 39.8 % (36-54); HEMOGLOBIN 13.6 g/dL (14.0-18.0); LYMPHOCYTES # (AUTO) 1.7 K/uL (1.0-5.5); LYMPHOCYTES % (AUTO) 13.2 % (20.5-51.5); MEAN CORPUSCULAR HEMOGLOBIN 30 pg (27-31); MEAN CORPUSCULAR HGB CONC 34 % (32-36); MEAN CORPUSCULAR VOLUME 89 fL (79.0-98.0); MONOCYTES # (AUTO) 1.7 K/uL (0.0-1.0); NEUTROPHILS # (AUTO) 8.6 K/uL (1.8-7.7); NEUTROPHILS % (AUTO) 67.3 % (40.0-70.0); PLATELET COUNT (AUTO) 243 K/uL (130-430); RED CELL DISTRIBUTION WIDTH 15.6 % (9.0-15.0); WHITE BLOOD COUNT (AUTO) 12.8 K/uL (4.8-10.8)
[2019-05-17 06:53] LABS: CALCIUM 7.8 mg/dL (8.4-11.0); CREATININE 0.69 mg/dL (0.55-1.30); POTASSIUM 3.7 mmol/L (3.5-5.1)
[2019-05-17] MEDS: ONDANSETRON HCL 4 MG/2 ML VIAL IVP PRN ×3 (06:54→23:12)
[2019-05-17] MEDS: PIPERACILLIN/TAZO 4.5GM/DEX-IS 100 ML IV SCH ×3 (06:55→22:24)
[2019-05-17 08:00] VITALS: BP_SYST 154
[2019-05-17] MEDS: ENOXAPARIN SODIUM 40 MG/0.4 ML SYRINGE SUBCUT SCH (08:16)
[2019-05-17] MEDS: 0.45% NACL 1,000 ML IV SCH (08:25)
[2019-05-17 12:39] VITALS: BP_SYST 157
[2019-05-17 16:34] VITALS: BP_SYST 159
[2019-05-17 20:00] VITALS: BP_SYST 149
[2019-05-18] VITALS: BP_SYST 136
[2019-05-18] MEDS: MORPHINE 4 MG/ML INJ. SYRINGE IVP PRN ×4 (00:43→21:05)
[2019-05-18] MEDS: ACETAMINOPHEN/CODEINE 300 MG-30 MG TABLET PO PRN (02:43)
[2019-05-18] MEDS: IPRATROPIUM/ALBUTEROL SULFATE 3 ML AMPUL.NEB (DUONEB) INH SCH ×6 (03:00→23:00)
[2019-05-18] MEDS: metroNIDAZOLE 500 mg/NS 100 ML IV SCH (05:55)
[2019-05-18 06:34] LABS: BASOPHILS # (AUTO) 0.1 K/uL (0.0-0.2); BASOPHILS % (AUTO) 0.4 % (0.0-2.0); EOSINOPHILS # (AUTO) 0.6 K/uL (0.0-0.4); HEMATOCRIT 39.8 % (36-54); HEMOGLOBIN 13.6 g/dL (14.0-18.0); LYMPHOCYTES # (AUTO) 1.8 K/uL (1.0-5.5); LYMPHOCYTES % (AUTO) 11.7 % (20.5-51.5); MEAN CORPUSCULAR HEMOGLOBIN 30 pg (27-31); MEAN CORPUSCULAR HGB CONC 34 % (32-36); MEAN CORPUSCULAR VOLUME 89 fL (79.0-98.0); MONOCYTES # (AUTO) 1.4 K/uL (0.0-1.0); MONOCYTES % (AUTO) 9.1 % (1.7-9.3); NEUTROPHILS # (AUTO) 11.6 K/uL (1.8-7.7); NEUTROPHILS % (AUTO) 74.8 % (40.0-70.0); PLATELET COUNT (AUTO) 288 K/uL (130-430); RED BLOOD CELL COUNT(AUTO) 4.49 MIL/uL (4.2-6.2); RED CELL DISTRIBUTION WIDTH 15.6 % (9.0-15.0); WHITE BLOOD COUNT (AUTO) 15.4 K/uL (4.8-10.8)
[2019-05-18 06:37] LABS: CALCIUM 7.9 mg/dL (8.4-11.0); CREATININE 0.64 mg/dL (0.55-1.30); POTASSIUM 3.5 mmol/L (3.5-5.1); TOTAL BILIRUBIN 1.2 mg/dL (0.0-1.0)
[2019-05-18] MEDS: PIPERACILLIN/TAZO 4.5GM/DEX-IS 100 ML IV SCH ×3 (06:51→20:58)
[2019-05-18 08:24] VITALS: BP_SYST 137
[2019-05-18] MEDS: ONDANSETRON HCL 4 MG/2 ML VIAL IVP PRN ×3 (08:59→21:09)
[2019-05-18] MEDS: ENOXAPARIN SODIUM 40 MG/0.4 ML SYRINGE SUBCUT SCH (08:59)
[2019-05-18] MEDS: 0.45% NACL 1,000 ML IV SCH ×2 (10:48→15:50)
[2019-05-18 12:00] VITALS: BP_SYST 154
[2019-05-18 16:09] VITALS: BP_SYST 127
[2019-05-18 20:00] VITALS: BP_SYST 130
[2019-05-19] VITALS: BP_SYST 125
[2019-05-19] MEDS: MORPHINE 4 MG/ML INJ. SYRINGE IVP PRN ×3 (00:32→17:04)
[2019-05-19] MEDS: 0.45% NACL 1,000 ML IV SCH ×3 (00:32→21:13)
[2019-05-19] MEDS: PIPERACILLIN/TAZO 4.5GM/DEX-IS 100 ML IV SCH (05:45)
[2019-05-19] MEDS: ACETAMINOPHEN/CODEINE 300 MG-30 MG TABLET PO PRN ×2 (05:46→22:14)
[2019-05-19] MEDS: IPRATROPIUM/ALBUTEROL SULFATE 3 ML AMPUL.NEB (DUONEB) INH SCH ×5 (08:06→23:00)
[2019-05-19 08:14] VITALS: BP_SYST 141
[2019-05-19] MEDS: ENOXAPARIN SODIUM 40 MG/0.4 ML SYRINGE SUBCUT SCH (09:13)
[2019-05-19 09:21] LABS: BASOPHILS # (AUTO) 0.1 K/uL (0.0-0.2); BASOPHILS % (AUTO) 0.5 % (0.0-2.0); EOSINOPHILS # (AUTO) 0.5 K/uL (0.0-0.4); EOSINOPHILS % (AUTO) 3.4 % (0.0-4.0); HEMATOCRIT 38.7 % (36-54); HEMOGLOBIN 13.3 g/dL (14.0-18.0); LYMPHOCYTES # (AUTO) 1.7 K/uL (1.0-5.5); LYMPHOCYTES % (AUTO) 11.6 % (20.5-51.5); MEAN CORPUSCULAR HEMOGLOBIN 30 pg (27-31); MEAN CORPUSCULAR HGB CONC 34 % (32-36); MEAN CORPUSCULAR VOLUME 89 fL (79.0-98.0); MONOCYTES % (AUTO) 6.3 % (1.7-9.3); NEUTROPHILS # (AUTO) 11.7 K/uL (1.8-7.7); NEUTROPHILS % (AUTO) 78.2 % (40.0-70.0); PLATELET COUNT (AUTO) 342 K/uL (130-430); RED BLOOD CELL COUNT(AUTO) 4.36 MIL/uL (4.2-6.2); RED CELL DISTRIBUTION WIDTH 15.3 % (9.0-15.0)
[2019-05-19 09:22] LABS: CALCIUM 7.7 mg/dL (8.4-11.0); CREATININE 0.62 mg/dL (0.55-1.30); POTASSIUM 3.6 mmol/L (3.5-5.1)
[2019-05-19] MEDS: MEROPENEM 1 GM in NS 100 ML IV SCH ×3 (11:53→21:14)
[2019-05-19 12:00] VITALS: BP_SYST 152
[2019-05-19 16:00] VITALS: BP_SYST 155
[2019-05-19] MEDS: ONDANSETRON HCL 4 MG/2 ML VIAL IVP PRN (17:12)
[2019-05-19 19:00] VITALS: BP_SYST 155
[2019-05-19 20:00] VITALS: BP_SYST 155
[2019-05-20 01:50] VITALS: BP_SYST 158
[2019-05-20] MEDS: IPRATROPIUM/ALBUTEROL SULFATE 3 ML AMPUL.NEB (DUONEB) INH SCH ×6 (02:48→23:00)
[2019-05-20] MEDS: MEROPENEM 1 GM in NS 100 ML IV SCH ×3 (06:22→23:23)
[2019-05-20 06:24] LABS: CREATININE 0.6 mg/dL (0.55-1.30); POTASSIUM 3.6 mmol/L (3.5-5.1); TOTAL BILIRUBIN 0.9 mg/dL (0.0-1.0)
[2019-05-20 06:32] LABS: BASOPHILS # (AUTO) 0.1 K/uL (0.0-0.2); BASOPHILS % (AUTO) 0.5 % (0.0-2.0); EOSINOPHILS # (AUTO) 0.6 K/uL (0.0-0.4); EOSINOPHILS % (AUTO) 4.4 % (0.0-4.0); HEMOGLOBIN 12.6 g/dL (14.0-18.0); LYMPHOCYTES # (AUTO) 2.1 K/uL (1.0-5.5); LYMPHOCYTES % (AUTO) 15.3 % (20.5-51.5); MEAN CORPUSCULAR HEMOGLOBIN 30 pg (27-31); MEAN CORPUSCULAR HGB CONC 34 % (32-36); MEAN CORPUSCULAR VOLUME 89 fL (79.0-98.0); MONOCYTES # (AUTO) 1.1 K/uL (0.0-1.0); MONOCYTES % (AUTO) 7.7 % (1.7-9.3); NEUTROPHILS # (AUTO) 9.8 K/uL (1.8-7.7); NEUTROPHILS % (AUTO) 72.1 % (40.0-70.0); PLATELET COUNT (AUTO) 381 K/uL (130-430); RED BLOOD CELL COUNT(AUTO) 4.14 MIL/uL (4.2-6.2); RED CELL DISTRIBUTION WIDTH 15.1 % (9.0-15.0); WHITE BLOOD COUNT (AUTO) 13.7 K/uL (4.8-10.8)
[2019-05-20] MEDS: 0.45% NACL 1,000 ML IV SCH (07:50)
[2019-05-20 08:00] VITALS: BP_SYST 140
[2019-05-20] MEDS: ENOXAPARIN SODIUM 40 MG/0.4 ML SYRINGE SUBCUT SCH (08:49)
[2019-05-20 12:32] VITALS: BP_SYST 149
[2019-05-20] MEDS: ACETAMINOPHEN/CODEINE 300 MG-30 MG TABLET PO PRN ×2 (14:08→23:22)
[2019-05-20 16:33] VITALS: BP_SYST 135
[2019-05-21 00:07] VITALS: BP_SYST 152
[2019-05-21] MEDS: ONDANSETRON HCL 4 MG/2 ML VIAL IVP PRN (01:10)
[2019-05-21] MEDS: MORPHINE 4 MG/ML INJ. SYRINGE IVP PRN (01:10)
[2019-05-21] MEDS: MEROPENEM 1 GM in NS 100 ML IV SCH ×3 (05:57→22:26)
[2019-05-21 06:27] LABS: BASOPHILS # (AUTO) 0.1 K/uL (0.0-0.2); BASOPHILS % (AUTO) 0.5 % (0.0-2.0); EOSINOPHILS # (AUTO) 0.6 K/uL (0.0-0.4); EOSINOPHILS % (AUTO) 4.8 % (0.0-4.0); HEMATOCRIT 36.4 % (36-54); HEMOGLOBIN 12.4 g/dL (14.0-18.0); LYMPHOCYTES # (AUTO) 2.4 K/uL (1.0-5.5); LYMPHOCYTES % (AUTO) 17.5 % (20.5-51.5); MEAN CORPUSCULAR HEMOGLOBIN 30 pg (27-31); MEAN CORPUSCULAR HGB CONC 34 % (32-36); MEAN CORPUSCULAR VOLUME 90 fL (79.0-98.0); MONOCYTES % (AUTO) 7.5 % (1.7-9.3); NEUTROPHILS # (AUTO) 9.4 K/uL (1.8-7.7); NEUTROPHILS % (AUTO) 69.7 % (40.0-70.0); PLATELET COUNT (AUTO) 422 K/uL (130-430); RED BLOOD CELL COUNT(AUTO) 4.06 MIL/uL (4.2-6.2); RED CELL DISTRIBUTION WIDTH 15.8 % (9.0-15.0); WHITE BLOOD COUNT (AUTO) 13.5 K/uL (4.8-10.8)
[2019-05-21 06:54] LABS: CALCIUM 8.3 mg/dL (8.4-11.0); CREATININE 0.57 mg/dL (0.55-1.30); POTASSIUM 3.8 mmol/L (3.5-5.1)
[2019-05-21] MEDS: IPRATROPIUM/ALBUTEROL SULFATE 3 ML AMPUL.NEB (DUONEB) INH SCH ×4 (08:23→23:00)
[2019-05-21] MEDS: ENOXAPARIN SODIUM 40 MG/0.4 ML SYRINGE SUBCUT SCH (08:42)
[2019-05-21 08:46] VITALS: BP_SYST 135
[2019-05-21] MEDS ORDERED: CHOLECALCIFEROL (VITAMIN D3) 2,000 UNIT TABLET PO ONE (10:00)
[2019-05-21] MEDS ORDERED: MULTIVITAMINS TAB 1 TABLET PO ONE (10:00)
[2019-05-21 12:20] VITALS: BP_SYST 139
[2019-05-21] MEDS: ACETAMINOPHEN/CODEINE 300 MG-30 MG TABLET PO PRN (14:21)
[2019-05-21 16:20] VITALS: BP_SYST 151
[2019-05-21 20:00] VITALS: BP_SYST 142
[2019-05-21] MEDS: MULTIVITAMINS TAB 1 TABLET PO SCH (22:25)
[2019-05-22 00:30] VITALS: BP_SYST 128
[2019-05-22] MEDS: IPRATROPIUM/ALBUTEROL SULFATE 3 ML AMPUL.NEB (DUONEB) INH SCH ×6 (00:41→20:41)
[2019-05-22] MEDS: MORPHINE 4 MG/ML INJ. SYRINGE IVP PRN ×2 (02:01→22:34)
[2019-05-22 06:48] LABS: BASOPHILS # (AUTO) 0.1 K/uL (0.0-0.2); BASOPHILS % (AUTO) 0.7 % (0.0-2.0); EOSINOPHILS # (AUTO) 0.4 K/uL (0.0-0.4); EOSINOPHILS % (AUTO) 3.7 % (0.0-4.0); HEMATOCRIT 36.1 % (36-54); HEMOGLOBIN 12.4 g/dL (14.0-18.0); LYMPHOCYTES # (AUTO) 2.4 K/uL (1.0-5.5); LYMPHOCYTES % (AUTO) 20.5 % (20.5-51.5); MEAN CORPUSCULAR HEMOGLOBIN 31 pg (27-31); MEAN CORPUSCULAR HGB CONC 34 % (32-36); MEAN CORPUSCULAR VOLUME 89 fL (79.0-98.0); MONOCYTES % (AUTO) 8.6 % (1.7-9.3); NEUTROPHILS # (AUTO) 7.6 K/uL (1.8-7.7); NEUTROPHILS % (AUTO) 66.5 % (40.0-70.0); PLATELET COUNT (AUTO) 445 K/uL (130-430); RED BLOOD CELL COUNT(AUTO) 4.05 MIL/uL (4.2-6.2); RED CELL DISTRIBUTION WIDTH 15.4 % (9.0-15.0); WHITE BLOOD COUNT (AUTO) 11.4 K/uL (4.8-10.8)
[2019-05-22] MEDS: MEROPENEM 1 GM in NS 100 ML IV SCH ×3 (06:51→21:31)
[2019-05-22 06:56] LABS: CALCIUM 8.4 mg/dL (8.4-11.0); CREATININE 0.62 mg/dL (0.55-1.30); POTASSIUM 3.9 mmol/L (3.5-5.1)
[2019-05-22 08:00] VITALS: BP_SYST 136
[2019-05-22] MEDS: CHOLECALCIFEROL (VITAMIN D3) 2,000 UNIT TABLET PO SCH (09:16)
[2019-05-22] MEDS: MULTIVITAMINS TAB 1 TABLET PO SCH ×2 (09:16→20:44)
[2019-05-22] MEDS: ENOXAPARIN SODIUM 40 MG/0.4 ML SYRINGE SUBCUT SCH (09:18)
[2019-05-22 11:50] VITALS: BP_SYST 136
[2019-05-22 12:00] VITALS: BP_SYST 146
[2019-05-22 16:00] VITALS: BP_SYST 140
[2019-05-22 19:40] VITALS: BP_SYST 156
[2019-05-23] VITALS: BP_SYST 135
[2019-05-23] MEDS: MEROPENEM 1 GM in NS 100 ML IV SCH ×3 (06:00→20:45)
[2019-05-23 06:54] LABS: BASOPHILS # (AUTO) 0.1 K/uL (0.0-0.2); BASOPHILS % (AUTO) 0.7 % (0.0-2.0); EOSINOPHILS # (AUTO) 0.4 K/uL (0.0-0.4); EOSINOPHILS % (AUTO) 3.8 % (0.0-4.0); HEMOGLOBIN 12.7 g/dL (14.0-18.0); LYMPHOCYTES # (AUTO) 2.1 K/uL (1.0-5.5); LYMPHOCYTES % (AUTO) 21.8 % (20.5-51.5); MEAN CORPUSCULAR HEMOGLOBIN 31 pg (27-31); MEAN CORPUSCULAR HGB CONC 34 % (32-36); MEAN CORPUSCULAR VOLUME 90 fL (79.0-98.0); MONOCYTES % (AUTO) 10.1 % (1.7-9.3); NEUTROPHILS % (AUTO) 63.6 % (40.0-70.0); PLATELET COUNT (AUTO) 473 K/uL (130-430); RED BLOOD CELL COUNT(AUTO) 4.13 MIL/uL (4.2-6.2); RED CELL DISTRIBUTION WIDTH 15.6 % (9.0-15.0); WHITE BLOOD COUNT (AUTO) 9.5 K/uL (4.8-10.8)
[2019-05-23] MEDS: MORPHINE 4 MG/ML INJ. SYRINGE IVP PRN ×3 (06:55→18:37)
[2019-05-23 07:21] LABS: CALCIUM 8.7 mg/dL (8.4-11.0); CREATININE 0.59 mg/dL (0.55-1.30); POTASSIUM 3.9 mmol/L (3.5-5.1)
[2019-05-23] MEDS: IPRATROPIUM/ALBUTEROL SULFATE 3 ML AMPUL.NEB (DUONEB) INH SCH ×5 (07:53→23:00)
[2019-05-23 08:06] VITALS: BP_SYST 150
[2019-05-23] MEDS: ENOXAPARIN SODIUM 40 MG/0.4 ML SYRINGE SUBCUT SCH (08:16)
[2019-05-23] MEDS: MULTIVITAMINS TAB 1 TABLET PO SCH ×2 (08:16→20:45)
[2019-05-23] MEDS: CHOLECALCIFEROL (VITAMIN D3) 2,000 UNIT TABLET PO SCH (08:16)
[2019-05-23 13:45] VITALS: BP_SYST 156
[2019-05-23 16:50] VITALS: BP_SYST 142
[2019-05-23 19:00] VITALS: BP_SYST 136
[2019-05-23 20:00] VITALS: BP_SYST 126
[2019-05-24 00:15] VITALS: BP_SYST 144
[2019-05-24] MEDS: MORPHINE 4 MG/ML INJ. SYRINGE IVP PRN (00:29)
[2019-05-24] MEDS: IPRATROPIUM/ALBUTEROL SULFATE 3 ML AMPUL.NEB (DUONEB) INH SCH ×2 (03:00→07:23)
[2019-05-24] MEDS: MEROPENEM 1 GM in NS 100 ML IV SCH ×2 (06:14→14:33)
[2019-05-24] MEDS: ACETAMINOPHEN/CODEINE 300 MG-30 MG TABLET PO PRN ×2 (06:18→21:48)
[2019-05-24 08:00] VITALS: BP_SYST 120
[2019-05-24] MEDS: MULTIVITAMINS TAB 1 TABLET PO SCH ×2 (09:49→21:46)
[2019-05-24] MEDS: CHOLECALCIFEROL (VITAMIN D3) 2,000 UNIT TABLET PO SCH (09:49)
[2019-05-24] MEDS: ENOXAPARIN SODIUM 40 MG/0.4 ML SYRINGE SUBCUT SCH (09:52)
[2019-05-24 16:00] VITALS: BP_SYST 134
[2019-05-24] MEDS ORDERED: DOXY100C PO (18:08)
[2019-05-24] MEDS ORDERED: Multivitamins Tab PO (18:08)
[2019-05-24] MEDS ORDERED: VITD2000 PO (18:08)
[2019-05-24 18:59] VITALS: BP_SYST 134
== END 2019-05-24 22:25 | disposition home or self-care (01) | DRG 853 ==
LOC: SED 05:14 → SMU 08:20 → STU 05-13 19:00 → SIC 05-14 21:06 → STU 05-15 17:15 → SMU 05-17 10:35
PROVIDERS: ADMIT Internal Medicine; ATTEND Internal Medicine
PROC: 0DN80ZZ Release Small Intestine, Open Approach (ICD-10-PCS; 2019-05-14)
PROC: 0W9J0ZZ Drainage of Pelvic Cavity, Open Approach (ICD-10-PCS; 2019-05-14)
PROC: 0D1B0Z4 Bypass Ileum to Cutaneous, Open Approach (ICD-10-PCS; principal; 2019-05-14 18:10)
DX: A41.9 Sepsis, unspecified organism (principal); J18.9 Pneumonia, unspecified organism; K65.0 Generalized (acute) peritonitis; K65.1 Peritoneal abscess; N17.0 Acute kidney failure with tubular necrosis; K65.9 Peritonitis, unspecified; J96.00 Acute respiratory failure, unspecified whether with hypoxia or hypercapnia; E43 Unspecified severe protein-calorie malnutrition; K56.2 Volvulus; J98.11 Atelectasis; Z68.42 Body mass index [BMI] 45.0-49.9, adult; K57.20 Diverticulitis of large intestine with perforation and abscess without bleeding; E66.01 Morbid (severe) obesity due to excess calories; F17.210 Nicotine dependence, cigarettes, uncomplicated; B96.20 Unspecified Escherichia coli [E. coli] as the cause of diseases classified elsewhere; F41.9 Anxiety disorder, unspecified; N28.9 Disorder of kidney and ureter, unspecified; Z83.3 Family history of diabetes mellitus; Z93.3 Colostomy status; Z79.899 Other long term (current) drug therapy
CPT/HCPCS: 36415; 36600; 71045; 74018; 80048; 80053; 80307; 81000-TC; 82803-TC; 83690-TC; 83880; 84484; 85007; 85025; 85027; 85610-TC; 85651-TC; 85730-TC; 86886; 86900; 86901; 87040-TC; 87070; 87070-TC; 87075-TC; 87081; 87186-TC; 93005; 94002; 94640; 94760; A4371; A4409; A4421; A5061; C9290; G0378; J0330; J0456; J0744; J1100; J1650; J1885; J1940; J2175; J2185; J2270; J2405; J2543; J2704; J3010; J3480; J3490; J7030; J7050; J7120; J7620

== ENCOUNTER 2019-06-03 02:23 | Emergency (ER) | payer OTHER ==
[~2019-06-03] VITALS: Ht 185.4 cm; Wt 172.4 kg
[~2019-06-03 02:23] MED LIST changes: +DOXY100C PO; -METR500T PO; +Multivitamins Tab PO; +VITD2000 PO
[2019-06-03 02:27] VITALS: BP_SYST 112
--- NOTE | 2019-06-03 02:30 | NUR ---
Patient to ER bed 6 to gown for evaluation. Side rails up. Report given to KEELY OSMAN.
--- NOTE | 2019-06-03 02:35 | NUR ---
Patient is AAO x 4 and ambulatory c/o lower abdominal pain since Friday. Pt states he had an ileostomy surgery done at May 12. Pt has been in pain intermittently since then but has progressively got worse Friday. Pt states the pain would wake him up in the middle of the night. Pt states he has nausea but has not vomited. Ileostomy is placed in center ob abdomen. Surrounding skin appears to have erythema and is tender to touch. No other injuries/complaints per patient or noted.
--- NOTE | 2019-06-03 02:40 | NUR ---
ER Dr. Morales at bedside examining patient.
[2019-06-03] MEDS ORDERED: KETOROLAC TROMETHAMINE 30 MG VIAL IVP ONE (02:45)
[2019-06-03] MEDS ORDERED: ONDANSETRON HCL 4 MG/2 ML VIAL IVP ONE (02:45)
[2019-06-03] MEDS ORDERED: NS 1000 ML IV.SOLN IV ONE (02:45)
[2019-06-03] MEDS ORDERED: MORPHINE 4 MG/ML INJ. SYRINGE IVP ONE (02:45)
[2019-06-03 02:49] LABS: HEMATOCRIT 41.8 % (36-54); HEMOGLOBIN 14.1 g/dL (14.0-18.0); MEAN CORPUSCULAR HEMOGLOBIN 30 pg (27-31); MEAN CORPUSCULAR HGB CONC 34 % (32-36); MEAN CORPUSCULAR VOLUME 88 fL (79.0-98.0); PLATELET COUNT (AUTO) 402 K/uL (130-430); RED BLOOD CELL COUNT(AUTO) 4.76 MIL/uL (4.2-6.2); RED CELL DISTRIBUTION WIDTH 13.9 % (9.0-15.0); WHITE BLOOD COUNT (AUTO) 12.1 K/uL (4.8-10.8)
[2019-06-03 03:17] LABS: ATYPICAL LYMPHOCYTES % 0 % (0-0); BAND % (MANUAL) 0 % (0-6); EOSINOPHILS % (MANUAL) 3 % (0-7); LYMPHOCYTES % (MANUAL) 16 % (20-46); MONOCYTES % (MANUAL) 12 % (0-11)
[2019-06-03 03:18] LABS: BASOPHILS % (MANUAL) 0 % (0-2); METAMYELOCYTES % 0 % (0-0); MYELOCYTES % 0 % (0-0)
[2019-06-03 04:36] LABS: CALCIUM 8.7 mg/dL (8.4-11.0); CREATININE 0.85 mg/dL (0.55-1.30); POTASSIUM 3.7 mmol/L (3.5-5.1)
[2019-06-03 04:42] LABS: ALBUMIN 2.8 g/dL (3.4-4.8); TOTAL BILIRUBIN 0.6 mg/dL (0.0-1.0)
--- NOTE | 2019-06-03 04:53 | NUR ---
ER Dr. Morales at bedside re-examining patient.
[2019-06-03 05:04] LABS: BILIRUBIN,URINE 2+ (NEGATIVE); BLOOD, URINE NEGATIVE (NEGATIVE); CLARITY/URINE CLEAR (CLEAR); COLOR,URINE ORANGE (YELLOW); GLUCOSE,URINE NEGATIVE (NEGATIVE); KETONES,URINE 1+ (NEGATIVE); LEUKOCYTE ESTERASE ,URINE NEGATIVE (NEGATIVE); NITRITE, URINE NEGATIVE (NEGATIVE); PH,URINE 5.5 (5.0-8.0); PROTEIN URINE 1+ (NEGATIVE); UROBILINOGEN,URINE 0.2 (0.2-1.0)
[2019-06-03 05:17] LABS: BACTERIA,URINE FEW /HPF (None Seen); HYALINE CASTS, URINE 0-10 /LPF (None Seen); RBC,URINE 0-3 /HPF (0-3)
[2019-06-03 05:30] VITALS: BP_SYST 132
--- NOTE | 2019-06-03 05:30 | NUR ---
Patient given written and verbal discharge instructions and verbalizes understanding. ER MD discussed with patient the results and treatment provided. Patient in stable condition. ID arm band removed. IV catheter removed intact and dressing applied, no active bleeding. Rx of Tylenol with Codeine given. Patient educated on pain management and to follow up with PMD. Pain Scale 2. MD Dr. Morales made aware, pain medication given here and prescription home. Opportunity for questions provided and answered. Medication side effect fact sheet provided.
== END 2019-06-03 05:30 | disposition home or self-care (01) ==
LOC: SED 02:23
DX: R10.84 Generalized abdominal pain (principal); D72.829 Elevated white blood cell count, unspecified
CPT/HCPCS: 36415; 71045; 74021; 80053; 81000; 85007; 85027; 87040; 87086; 96374; 96375; 99284; J1885; J2270; J2405; J7030

== ENCOUNTER 2019-06-08 05:00 | Inpatient (IN) | payer OTHER ==
[~2019-06-08] VITALS: Ht 185.4 cm; Wt 158.8 kg
[2019-06-08 05:17] VITALS: BP_SYST 140
--- NOTE | 2019-06-08 05:20 | NUR ---
Pt placed to ER bed 03, to game designer. Pt report given to JACQUI Dickinson.
--- NOTE | 2019-06-08 05:25 | NUR ---
Pt brought in by girlfriend. Pt awake, alert, oriented x4. Pt states that he has 10/10 abdominal pain from surgical site in pubic area from colon resection. Pt states that he has had gradually increasing pain in lower abdomen for several days. Pt states tonight he woke up in excrutiating pain, with pus all over his abdomen and pelvis, and nausea. Pt states that he had diverticulitis surgery on may 14 with Ben, finished his doxycycline. Pt denies chest pain, vomiting, diarrhea, sob. Pt denies any additional medical complaint at this time. VSS. Resting in ED bed, moderate distress and pain.
--- NOTE | 2019-06-08 05:25 | NUR ---
Dr. Madrid at bedside.
[2019-06-08] MEDS ORDERED: NACL 0.9% 1,000 ML IV ONE (05:27)
[2019-06-08] MEDS ORDERED: MORPHINE 4 MG/ML INJ. SYRINGE IVP ONE (05:30)
[2019-06-08] MEDS ORDERED: DIPHENHYDRAMINE INJ 50 MG/ML VIAL IVP ONE (05:30)
--- NOTE | 2019-06-08 05:30 | NUR ---
Specimen for abdominal wound culture collected and sent to lab.
--- NOTE | 2019-06-08 05:50 | NUR ---
Medications Overidden from Pyxis. 4mg morphine vials unavail. x2 2mg vials used. Pt given Zofran 4mg ivp, 4mg morphine ivp, 25mg diphenhydramine ivp.
[2019-06-08] MEDS ORDERED: ONDANSETRON HCL 4 MG/2 ML VIAL IVP ONE (06:00)
[2019-06-08 06:09] LABS: BASOPHILS # (AUTO) 0.1 K/uL (0.0-0.2); BASOPHILS % (AUTO) 0.8 % (0.0-2.0); EOSINOPHILS # (AUTO) 0.3 K/uL (0.0-0.4); EOSINOPHILS % (AUTO) 1.9 % (0.0-4.0); HEMATOCRIT 39.4 % (36-54); HEMOGLOBIN 13.3 g/dL (14.0-18.0); LYMPHOCYTES # (AUTO) 2.9 K/uL (1.0-5.5); LYMPHOCYTES % (AUTO) 18.5 % (20.5-51.5); MEAN CORPUSCULAR HEMOGLOBIN 30 pg (27-31); MEAN CORPUSCULAR HGB CONC 34 % (32-36); MEAN CORPUSCULAR VOLUME 88 fL (79.0-98.0); MONOCYTES # (AUTO) 1.6 K/uL (0.0-1.0); MONOCYTES % (AUTO) 10.2 % (1.7-9.3); NEUTROPHILS # (AUTO) 10.6 K/uL (1.8-7.7); NEUTROPHILS % (AUTO) 68.6 % (40.0-70.0); PLATELET COUNT (AUTO) 298 K/uL (130-430); RED BLOOD CELL COUNT(AUTO) 4.49 MIL/uL (4.2-6.2); RED CELL DISTRIBUTION WIDTH 13.9 % (9.0-15.0); WHITE BLOOD COUNT (AUTO) 15.5 K/uL (4.8-10.8)
[2019-06-08] MEDS ORDERED: MORPHINE 2 MG/ML INJ. SYRINGE ONE (06:13)
[2019-06-08] MEDS ORDERED: ONDANSETRON HCL 4 MG/2 ML VIAL ONE (06:16)
[2019-06-08 06:21] LABS: CREATININE 0.79 mg/dL (0.55-1.30); POTASSIUM 3.7 mmol/L (3.5-5.1)
[2019-06-08 06:26] LABS: ALBUMIN 2.6 g/dL (3.4-4.8); TOTAL BILIRUBIN 0.7 mg/dL (0.0-1.0)
--- NOTE | 2019-06-08 06:30 | NUR ---
Pt taken to radiology for CT abd w/ contrast. Consent signed. Patient taken by rad staff, transported in [facility]
[2019-06-08 06:50] LABS: INR 1.4 (0.80-1.20)
--- NOTE | 2019-06-08 06:55 | NUR ---
Returned from radiology, back to [facility].
[2019-06-08] MEDS ORDERED: IOHEXOL 100 ML IV ONE (06:59)
--- NOTE | 2019-06-08 07:10 | NUR ---
REPORT RECEIVED FROM MERLIN OSMAN.
[2019-06-08] MEDS ORDERED: PIPERACILLIN/TAZO 3.375 GM in NS 50 ML IV ONE (07:15)
--- NOTE | 2019-06-08 07:22 | NUR ---
spoke with . instructed us to remove keyon from lower incision.
[2019-06-08] MEDS ORDERED: PIPERACILLIN/TAZOBACTAM 3.375 GM/VIAL (ZOSYN) IV ONE (07:28)
--- NOTE | 2019-06-08 07:30 | NUR ---
PT ROSA ELENA REMOVED FROM LOWER ABDOMEN AND COVED WITH ABD PAD.
--- NOTE | 2019-06-08 07:30 | NUR ---
Report given to JACQUI Levin and Romaine Vaughn RN. All care endorsed.
[2019-06-08] MEDS ORDERED: TYC3 PO (07:49)
--- NOTE | 2019-06-08 08:45 | NUR ---
TUCKER CATHETER INSERTED 16FR, 200ML OUTPUT.
[2019-06-08 09:08] LABS: BILIRUBIN,URINE 1+ (NEGATIVE); COLOR,URINE YELLOW (YELLOW); GLUCOSE,URINE NEGATIVE (NEGATIVE); KETONES,URINE 2+ (NEGATIVE); LEUKOCYTE ESTERASE ,URINE NEGATIVE (NEGATIVE); NITRITE, URINE NEGATIVE (NEGATIVE); PH,URINE 6.5 (5.0-8.0); PROTEIN URINE NEGATIVE (NEGATIVE); UROBILINOGEN,URINE 0.2 (0.2-1.0)
[2019-06-08 09:19] LABS: BLOOD, URINE TRACE (NEGATIVE); CLARITY/URINE HAZY (CLEAR)
--- NOTE | 2019-06-08 09:19 | NUR ---
Patient will be admitted to care of [facility]. Admitted to MED SURG unit. Will go to room 126B. Belongings list completed. Complete and up to date summary report printed. SBAR report to be given at bedside with opportunity for questions.
--- NOTE | 2019-06-08 09:20 | NUR ---
CALLED MED SURG UNIT FOR BED ASSIGNMENT.
[2019-06-08 09:42] LABS: BACTERIA,URINE FEW /HPF (None Seen); RBC,URINE 0-3 /HPF (0-3); WBC,URINE 0-3 /HPF (0-3)
--- NOTE | 2019-06-08 09:45 | NUR ---
DR BRONSON AT BEDSIDE EXAMINING PT.
--- NOTE | 2019-06-08 10:57 | NUR ---
BED ASSIGNMENT RECEIVED AT THIS TIME
--- NOTE | 2019-06-08 11:05 | NUR ---
ADMIT NOTE Received pt from ER to the floor with a diagnosis of DIVERTICULOSIS. Admission process initiated. patient oriented to pain management, safety and call light-teach back done.
--- NOTE | 2019-06-08 11:15 | NUR ---
REPORT GIVEN TO ANTHONY AT BEDSIDE, IV PATENT AND FLUSHING, PT BELONGINGS TRANSFERED.
--- NOTE | 2019-06-08 11:20 | NUR ---
Routine Patient awake, alert, oriented x4. Lungs clear. Respiration even and unlabored. 20 gauge peripheral IV in left antecubital, infusing D5NS at 100 ml/hr with no redness at site. Colostomy, lower mid-abdomen. Scabs on abdomen (where retention sutures were). Surgical incision, low mid-abdomen, covered with clean, dry dressing. Barclay catheter draining clear, jose urine. Healed scar on right, lower leg. Patient stable with Sonja at bedside.
[2019-06-08 11:22] VITALS: BP_SYST 124
--- NOTE | 2019-06-08 12:06 | NUR ---
CONSULT SURGERY ABDOMINAL PAIN DR BRONSON [phone] S/W [facility]
--- NOTE | 2019-06-08 12:08 | NUR ---
CONSULT ID INFECTED SURGICAL WOUND DR NEWTON [phone] S/W [facility]
[2019-06-08] MEDS ORDERED: fentaNYL CITRATE/PF 100 MCG/2 ML AMP IVP ONE (13:45)
[2019-06-08] MEDS ORDERED: PROPOFOL 200MG/ 20ML VIAL (DIPRIVAN) IV ONE (13:45)
[2019-06-08] MEDS ORDERED: NS IRRIG SOLN 1000 ML IR ONE (13:45)
[2019-06-08] MEDS ORDERED: MIDAZOLAM HCL 5 MG/5 ML VIAL IVP ONE (13:45)
[2019-06-08] MEDS ORDERED: LR 1,000 ML IV.SOLN IV ONE (13:45)
[2019-06-08] MEDS ORDERED: SEVOFLURANE 15 MIN GAS INH ONE (13:45)
[2019-06-08] MEDS ORDERED: CEFAZOLIN 2 GM IVPB PREMIX 50 ML IV ONE (13:45)
[2019-06-08] MEDS ORDERED: LORazepam 2 MG/ML VIAL IVP PRN (14:30)
[2019-06-08] MEDS ORDERED: ONDANSETRON HCL 4 MG/2 ML VIAL IVP PRN (14:30)
[2019-06-08] MEDS ORDERED: ACETAMINOPHEN 325 MG TABLET PO PRN (14:30)
[2019-06-08] MEDS ORDERED: HYDROcodone/ACETAMIN 5-325 MG TAB (NORCO/ VICODIN) PO PRN (14:30)
[2019-06-08] MEDS ORDERED: cefTRIAXone 1 GM IVPB PREMIX 50 ML IV SCH (14:30)
[2019-06-08] MEDS ORDERED: HYDROcodone/ACETAMIN 10-325 MG TAB PO PRN (14:30)
[2019-06-08 15:10] VITALS: BP_SYST 134
[2019-06-08] MEDS: ACETAMINOPHEN/CODEINE 300 MG-30 MG TABLET PO SCH ×2 (15:31→19:31)
--- NOTE | 2019-06-08 15:37 | NUR ---
Routine Scheduled medications given per order. Patient stable with at bedside.
--- NOTE | 2019-06-08 16:47 | NUR ---
Routine Patient resting comfortably in bed with at bedside. Abdominal soreness has decreased since administration of tylenol. Patient stable at this time.
[2019-06-08] MEDS ORDERED: *CUBICIN 6 MG/KG Q24H/PHARMACY XX PRN (17:15)
--- NOTE | 2019-06-08 18:50 | NUR ---
Routine Patient resting comfortably in bed with at bedside. Patient stable since transfer to unit.
[2019-06-08] MEDS: D5/0.45 NS 1,000 ML IV SCH (19:30)
[2019-06-08 20:00] VITALS: BP_SYST 120
[2019-06-08] MEDS ORDERED: NORMAL SALINE 5 ML DISP.SYRIN IVF SCH (22:00)
[2019-06-08] MEDS: NS IV SCH (23:03)
[2019-06-08] MEDS: DAPTOMYCIN IV SCH (23:03)
[2019-06-08] MEDS: MULTIVITAMINS TAB 1 TABLET PO SCH (23:04)
[2019-06-08] MEDS: PIPERACILLIN/TAZO 4.5GM/DEX-IS 100 ML IV SCH (23:04)
[2019-06-08] MEDS: NORMAL SALINE 5 ML DISP.SYRIN IVF SCH (23:05)
[2019-06-09] MEDS: ACETAMINOPHEN/CODEINE 300 MG-30 MG TABLET PO SCH ×7 (01:21→23:00)
[2019-06-09] MEDS: MORPHINE 4 MG/ML INJ. SYRINGE IVP PRN (03:28)
[2019-06-09 04:00] VITALS: BP_SYST 126
[2019-06-09] MEDS: D5/0.45 NS 1,000 ML IV SCH ×2 (05:30→15:50)
--- NOTE | 2019-06-09 06:00 | NUR ---
RECIEVED REPORT @ START OF PM SHIFT, PT. A/O/X/4, RESPIRATIONS EVEN AND UNLABORED, ROOM AIR,,ABDOMINAL DRESSING OOZING CLOUDY PINKISH- COOLEY SECRETIONS AND REINFORCED WITH ABD PADS, ABLE TO ASSIST WITH TURNING AND REPOSITIONING, FC DRAINING CELIO COLORED URINE, D5NS INFUSING @ N100 ML/HR IN LAC#22G, MEDICATED WITH MORPHINE 4 MG IVP FOR C/O, PAIN X'S ONCE DURING THE NITE, @ BEDSIDE,COLOSTOMY DRAINING DARK BROWN LIQUID STOOL, RESTED QUIETLY IN BED DURING THE NITE, SR'S UP X'S 3, CALL LIGHT WITHIN REACH, WILL CONTINUE TO MONITOR
[2019-06-09] MEDS: PIPERACILLIN/TAZO 4.5GM/DEX-IS 100 ML IV SCH ×3 (06:59→21:31)
[2019-06-09] MEDS: NORMAL SALINE 5 ML DISP.SYRIN IVF SCH ×3 (06:59→21:31)
[2019-06-09 07:09] LABS: CALCIUM 8.9 mg/dL (8.4-11.0); CREATININE 0.79 mg/dL (0.55-1.30); POTASSIUM 3.5 mmol/L (3.5-5.1)
[2019-06-09 07:43] LABS: BASOPHILS # (AUTO) 0.1 K/uL (0.0-0.2); BASOPHILS % (AUTO) 1.1 % (0.0-2.0); EOSINOPHILS # (AUTO) 0.7 K/uL (0.0-0.4); EOSINOPHILS % (AUTO) 9.3 % (0.0-4.0); HEMOGLOBIN 12.5 g/dL (14.0-18.0); LYMPHOCYTES % (AUTO) 25.2 % (20.5-51.5); MEAN CORPUSCULAR HEMOGLOBIN 30 pg (27-31); MEAN CORPUSCULAR HGB CONC 34 % (32-36); MEAN CORPUSCULAR VOLUME 88 fL (79.0-98.0); MONOCYTES # (AUTO) 0.9 K/uL (0.0-1.0); MONOCYTES % (AUTO) 11.7 % (1.7-9.3); NEUTROPHILS # (AUTO) 4.1 K/uL (1.8-7.7); NEUTROPHILS % (AUTO) 52.7 % (40.0-70.0); PLATELET COUNT (AUTO) 290 K/uL (130-430); RED BLOOD CELL COUNT(AUTO) 4.18 MIL/uL (4.2-6.2)
--- NOTE | 2019-06-09 07:49 | NUR ---
pt in bed appears to sleep abdominal dressing intact and clean colostomy empty. no sob noted will cont to monitor.
[2019-06-09 08:00] VITALS: BP_SYST 133
[2019-06-09 08:18] LABS: WHITE BLOOD COUNT (AUTO) 7.8 K/uL (4.8-10.8)
[2019-06-09] MEDS: MULTIVITAMINS TAB 1 TABLET PO SCH ×2 (08:36→21:28)
[2019-06-09] MEDS: CHOLECALCIFEROL (VITAMIN D3) 2,000 UNIT TABLET PO SCH (08:36)
--- NOTE | 2019-06-09 08:58 | NUR ---
Nutrition Update Solo Scale 16 noted. Pt admitted for diverticulosis. Diet: low-fat BMI: 46.2 kg/m2 RD to follow per nutrition care standards.
[2019-06-09 09:02] LABS: ERYTHROCYTE SEDIMENTATION RATE 88 MM/HR (0-15)
--- NOTE | 2019-06-09 12:22 | NUR ---
Case mgt: Met with pt/ at bedside--pt has ostomy supplies for ileostomy at home that was delivered from [employer]--pt indicates he had f/u appt with Dr. Contreras but ended up here inpt--Pt did not have home health at previous discharge. Pt and have [facility] information and indicate they will be f/u with the clinic also. Pt's can drive pt to appointments. Case mgt to f/u as needed. JACQUELINE OSMAN
--- NOTE | 2019-06-09 16:31 | NUR ---
Nutrition Assessment (short note d/t high patient load) A - RD reviewed pertinent nutrition-related info via EMR (physician notes/nursing notes/labs/meds/nursing care trends/care activity). Admission Dx: Diverticulosis Pt also found w/ surgical site infection w/ intra-abd abscess, possible staph infection per physician notes PMH: morbid obesity, perforated diverticulosis per physician notes Current Diet Order/Nutrition Support: Low-fat x0 days Ht: 6'1"/73" Wt: 350#/159 kg IBW: 184#/84 kg %IBW: 189% Adj IBW (obesity): 226#/103 kg UBW: 380#/173 kg %UBW: 92% % Wt change: 8% wt change within 1 month d/t lack of appetite associated w/ pt per pt BMI: 46.2 kg/m2 (obesity class II) Subjective Info: RD Notification received for unintentional wt loss in the last 3 months (23-33#), pt eating poorly greater than 1 week because of decreased appetite, and unhealed wound. Pt also seen high risk d/t BMI greater than 40 kg/m2. Pt seen resting in bed w/ present at bedside. Pt reported that he has a better appetite today than he has had in a while -- pt ate some chicken, yams, and string beans at lunch today, but otherwise, did not eat much from other meals. Family does not bring pt foods from home per report -- she brought food for herself. Pt stated he was drinking Ensure in place of meals while at home and did not have much of an appetite. Pt was interested in ONS and wound healing supplement when offered. RD encouraged pt to increase PO intakes for optimal nutrition/healing. RD answered pertinent nutrition-related questions. RN stated pt has no pending plans/procedures. ESTIMATED NUTRITIONAL NEEDS CALORIES/DAY: 1988-1771 kcal/day (MSHJ x 1.2-1.5 CBW for wound healing, infection) PROTEIN/DAY: 129-155 gm/day (1.25-1.5 gm/kg Adj IBW for wound healing, infection) FLUID/DAY: 3-3.9 L/day (1 ml/kcal/day for maintenance) D - Increased nutritional needs related to metabolic demands as evidenced by estimated nutritional requirements for wound healing, infection. I - Recommend low-fat diet w/ Ensure Enlive TID, Sanjay BID (provides an additional ~1230 kcal/day, 65 gm protein/day) M - Monitor appetite and PO intakes w/ goal of pt meeting at least 75% of estimated nutritional needs, labs trending WNL, normal GI function, and skin integrity/wt maintenance E - High risk; RD to F/U within 2-3 days
--- NOTE | 2019-06-09 16:44 | NUR ---
Dietitian Recommendations * Recommend low-fat diet w/ Ensure Enlive TID, Sanjay BID (provides an additional ~1230 kcal/day, 65 gm protein/day) LP, RD Please refer to Nutrition Assessment for details.
--- NOTE | 2019-06-09 18:52 | NUR ---
pt shows no s/s of acute distress will cont to monitor
[2019-06-09 20:00] VITALS: BP_SYST 122
--- NOTE | 2019-06-09 20:00 | NUR ---
RECIEVED REPORT @ START OF SHIFT, A/O/X/4, RESPIRATIONS EVEN AND UNLABORED, ROOM AIR, ABDOMINAL DRESSING AND COLOSTOMY CHANGED BY CHARGE NURSE, UP SITTING IN BEDSIDE CHAIR WITH FEET ELEVATED, ABLE TO AMBULATE TO RESTROOM WITH STEADY GAIT INDEPENDENTLY, VOIDING CLEAR YELLOW URINE, D5NS INFUSING @ 100 ML/HR IN LAC, TOLERATING PO AND SOLID FOOD WITHOUT DIFFICULTY, DENIES PAIN @ THIS TIME WAS MEDICATED WITH TYLENOL #3 TABS ONE EARILER FOR C/O PAIN 11/18 @ ABDOMINAL INCISIONAL SITE,PATIENT IS COOPERATIVE WITH STAFF AND STATES HE FEELS MUCH BETTER TODAY, CALL LIGHT WITHIN REACH, BRAKES ON WHEELS OF BED AND BED IN LOW POSITION, WILL CONTINUE TO MONITOR FOR ANY S/S OF DISTRESS.
[2019-06-09] MEDS: DAPTOMYCIN IV SCH (20:42)
[2019-06-09] MEDS: NS IV SCH (20:42)
--- NOTE | 2019-06-10 | NUR ---
RESTING QUIETLY IN BED WITH EYES CLOSED, EASILY AROUSED, DENIES PAIN, IVF CONTINUES TO INFUSE IN LAC WITHOUT DIFFICULTY, IVPB ABT'S CONTINUED WITH NO ADVERSE REACTIONS NOTED, SR'S UP X'S 2, BED IN LOW POSITION, WILL CONTINUE TO MONITOR.
[2019-06-10] MEDS: D5/0.45 NS 1,000 ML IV SCH ×3 (01:30→22:08)
[2019-06-10] MEDS: ACETAMINOPHEN/CODEINE 300 MG-30 MG TABLET PO SCH ×6 (03:00→22:03)
[2019-06-10 04:00] VITALS: BP_SYST 107
--- NOTE | 2019-06-10 04:00 | NUR ---
CONTINUES TO REST QUIETLY IN BED WITH EYES CLOSED, EASILY AROUSED, NO NOTED CHANGES OBSERVED IN PRESENT CONDITION, WILL CONTINUE TO MONITOR.
--- NOTE | 2019-06-10 04:00 | NUR ---
RESTING QUIETLY IN BED WITH EYES CLOSED, EASILY AROUSED,, DENIES PAIN
[2019-06-10] MEDS: MORPHINE 4 MG/ML INJ. SYRINGE IVP PRN (05:13)
[2019-06-10] MEDS: PIPERACILLIN/TAZO 4.5GM/DEX-IS 100 ML IV SCH ×3 (05:52→22:03)
[2019-06-10] MEDS: NORMAL SALINE 5 ML DISP.SYRIN IVF SCH ×3 (05:52→22:04)
--- NOTE | 2019-06-10 06:15 | NUR ---
RESTING IN BED ,WILL ENDORSE TO ONCOMING NURSE, NO NOTED CHANGES IN PRESENT CONDITION.
--- NOTE | 2019-06-10 06:15 | NUR ---
LEFT HAND IV DISLODGED AND LEAKING, REPLACED WITH # 22G IN LEFT HAND, IVF INFUSING WITHOUT DIFFICULTY. MEDICATED WITH MORPHINE 4M MG X'S, I WITH EFFECTIVE RESULTS, WILL CONTINUE TO MONITOR.
[2019-06-10 06:44] LABS: BASOPHILS # (AUTO) 0.1 K/uL (0.0-0.2); BASOPHILS % (AUTO) 0.9 % (0.0-2.0); EOSINOPHILS # (AUTO) 0.8 K/uL (0.0-0.4); EOSINOPHILS % (AUTO) 10.8 % (0.0-4.0); HEMATOCRIT 36.7 % (36-54); HEMOGLOBIN 12.3 g/dL (14.0-18.0); LYMPHOCYTES % (AUTO) 25.9 % (20.5-51.5); MEAN CORPUSCULAR HEMOGLOBIN 30 pg (27-31); MEAN CORPUSCULAR HGB CONC 34 % (32-36); MEAN CORPUSCULAR VOLUME 89 fL (79.0-98.0); MONOCYTES # (AUTO) 0.7 K/uL (0.0-1.0); MONOCYTES % (AUTO) 9.5 % (1.7-9.3); NEUTROPHILS # (AUTO) 4.1 K/uL (1.8-7.7); NEUTROPHILS % (AUTO) 52.9 % (40.0-70.0); PLATELET COUNT (AUTO) 323 K/uL (130-430); RED BLOOD CELL COUNT(AUTO) 4.13 MIL/uL (4.2-6.2); RED CELL DISTRIBUTION WIDTH 13.9 % (9.0-15.0); WHITE BLOOD COUNT (AUTO) 7.7 K/uL (4.8-10.8)
[2019-06-10 08:00] VITALS: BP_SYST 117
--- NOTE | 2019-06-10 08:00 | NUR ---
initial notes- in bed, eating breakfast. family at bedside. abdominal dressing dry and intact. ambulate to the bathroom and voiding ok. update plan of care. call light in reach, will continue to monitor
[2019-06-10 08:40] LABS: CALCIUM 9.1 mg/dL (8.4-11.0); CREATININE 0.8 mg/dL (0.55-1.30); POTASSIUM 3.5 mmol/L (3.5-5.1)
[2019-06-10 09:26] LABS: C-REACTIVE PROTEIN QUANT 12.1 mg/dL (0-0.5)
[2019-06-10 09:49] LABS: ERYTHROCYTE SEDIMENTATION RATE 94 MM/HR (0-15)
[2019-06-10] MEDS: CHOLECALCIFEROL (VITAMIN D3) 2,000 UNIT TABLET PO SCH (09:55)
[2019-06-10] MEDS: MULTIVITAMINS TAB 1 TABLET PO SCH ×2 (09:55→22:02)
--- NOTE | 2019-06-10 10:30 | NUR ---
colostomy is leaking, changed bag and abdominal dressing. pt tolerated well.
[2019-06-10 13:01] VITALS: BP_SYST 125
--- NOTE | 2019-06-10 14:00 | NUR ---
AMBULATE IN THE HALLWAY. PAIN IS CONTROLLED AT THIS TIME. WILL PROVIDE INCENTIVE SPIROMETER.
--- NOTE | 2019-06-10 16:00 | NUR ---
wound care eval done by wound care nurse.
--- NOTE | 2019-06-10 16:00 | NUR ---
WOUND EVALUATION: Wound Consult received from Dr. Uche Arrington. Thank you Dr. Arrington for the consult. Patient received in a [place] Bed with an IsoFlex HIMA mattress, awake, alert, and oriented. Patient is able to turn in bed and ambulate independently. Solo Score is an 18. Past Medical History: Diverticulitis, Acute Diverticulitis with Microperforation in January, admission, perforated diverticulitis with abscess with a subsequent exploratory laparotomy with Ileostomy creation on 05/14/[address] Contreras. Recent Labs: WBC 7.7, RBC 4.13, hemoglobin 12.3, hematocrit 36.7, ESR 94, BUN 7, creatinine 0.80, GFR 117, glucose 110, C-reactive protein 12.1, albumin 2.6, PT 14.0, INR 1.4. Microbiology: Blood culture results 2 in progress. MRSA screen results negative. Surgical tissue culture results positive for Escherichia coli, Staphylococcus coagulase-negative, and Streptococcus group B. Intrinsic factors that delay wound healing: Surgical changes in abdomen. Extrinsic factors that delay wound healing: Decreased mobility. Wound Assessment: 1. Right Abdomen: Chronic wound (former recent retention suture site), present on admission. Wound bed has 100% black scab. No odor, no drainage. Periwound intact. Wound measures 0.4 cm x 3.8 cm. 2. Right Abdomen, inferior to site 1: Chronic wound (former recent retention suture site), present on admission. Wound bed has 100% black scab. No odor, no drainage. Periwound intact. Wound measures 0.5 cm x 6.2 cm. Recommend: No dressings needed. Wash Abdomen/involved areas with mild soap and water. Pat dry. Apply Eucerin cream to involved areas. Perform site care twice a day. 3. Right Abdomen, inferior to site 2: Acute on chronic wound (former recent retention suture site), present on admission. Wound bed has 100% yellow tissue. No odor, no drainage. Periwound erythematous. Wound measures 0.3 cm x 3.0 cm x 0.2 cm. 4. Right Abdomen, inferior to site 3: Acute on chronic wound (former recent retention suture site), present on admission. Wound bed has 70% dark discolored skin, 20% yellow tissue, 10% red tissue. No odor, no drainage. Periwound erythematous. Wound measures 1.0 cm x 7.2 cm x 0.4 cm. Recommend: Cleanse wounds with normal saline. Apply sure prep to corina-wounds. Apply Venelex ointment to wound beds. Cover with foam dressings. Perform wound care daily, and as needed for dressing soiling or dislodgment. 5. Mid Lower Abdomen, inferior to Ileostomy site: Acute on chronic wound, present on admission. Wound bed has 70% yellow tissue, 30% red tissue. No odor, small yellow drainage. Periwound erythematous. Wound measures 3.0 cm x 1.2 cm x 3.9 cm. Tunneling present at 12 o'clock measuring 9.2 cm. Recommend: Cleanse wound with normal saline. Apply sure prep to corina-wound. Apply Venelex ointment to wound bed. Pack wound and sinus tract area with 1/4 inch Iodoform packing strip. Cover with foam dressing. Perform wound care daily, and as needed for dressing soiling or dislodgment. 6. Left Abdomen: Chronic wound (former recent retention suture site), present on admission. Wound bed has 100% black scab. No odor, no drainage. Periwound intact. Wound measures 0.8 cm x 6.0 cm. 7. Left Abdomen, inferior to site 6: Chronic wound (former recent retention suture site), present on admission. Wound bed has 100% black scab. No odor, no drainage. Periwound intact. Wound measures 0.5 cm x 6.0 cm. 8. Left Abdomen, inferior to site 7: Chronic wound (former recent retention suture site), present on admission. Wound bed has 70% pink scar tissue, 30% black scab. No odor, no drainage. Periwound intact. Wound measures 0.4 cm x 6.0 cm. Recommend: No dressings needed. Wash Abdomen/involved areas with mild soap and water. Pat dry. Apply Eucerin cream to involved areas. Perform site care twice a day. 9. Right Abdomen, inferior to site 8: Acute on chronic wound (former recent retention suture site), present on admission. Wound bed has 60% red tissue, 40% yellow tissue. No odor, no drainage. Periwound erythematous. Wound measures 2.0 cm x 9.3 cm x 1.1 cm. Recommend: Cleanse wound with normal saline. Apply sure prep to corina-wound. Apply Venelex ointment to wound bed. Pack wound with 1/4 inch Iodoform packing strip. Cover with foam dressing. Perform wound care daily, and as needed for dressing soiling or dislodgment. 10. Mid Abdomen: Surgical site. Long vertical surgical incision present measuring 25.1 cm x 1.4 cm. Incision stops at Ileostomy site and continues inferior to Ileostomy site. Recommend: No dressings needed. Continue to monitor incision every shift. 11. Abdomen: Ileostomy site. Pouch is intact and not due to be changed. Will assess site on next visit. Recommend: 1. Cleanse Stomal site and surrounding tissue with mild soap and water. Gently pat dry. 2. Perform crusting procedure: Apply stoma powder to reddened and any non-intact skin areas. Dust off with gauze. Repeat 3 times. 3. Apply SurePrep to corina-stomal area and surrounding tissue. Make sure to make stoma powdered areas really sticky with SurePrep. 4. Apply Adapt barrier rings to corina-stomal area and patient's left and right sides of corina-stomal area that has irregular contours/channels. 5. Apply Stoma paste to patient's left and right sides of corina-stomal area that has irregular contours/channels. 6. Cut ostomy pouch to size and apply to stoma. Hold in place with hand for about 2 minutes for better adherence. Perform Stoma care weekly, and as needed for pouch dislodgement. Also recommend: Encourage and assist patient as needed with repositioning every 2 hours with pillow support and off-load pressure areas with pillows for pressure re-distribution. Offload, elevate and float bilateral heels with pillows. Perform skin care and monitor skin integrity Q shift.
[2019-06-10 16:14] VITALS: BP_SYST 117; BP_SYST 126
--- NOTE | 2019-06-10 18:15 | NUR ---
Notes- eating dinner, pain is controlled at this time. IVF infusing well. using incentive spirometer and ambulates. No distress noted. All needs meet. will endorse.
--- NOTE | 2019-06-10 19:10 | NUR ---
OPENING NOTES Patient AOx4, watching TV. No signs of respiratory distress noted. Denies pain and discomfort at this time. IVF infusing well, patency noted. Abdominal Dressing clean, dry and intact. SCD's operating well. Colostomy bag was drained by RN, colostomy bag clean, dry and intact. Call light within reach, patient educated to use call light when assistance is noted, patient verbalized understanding. Bed locked and lowest position. Safety precautions in place. Will continue to monitor patient.
[2019-06-10 20:00] VITALS: BP_SYST 120
--- NOTE | 2019-06-10 22:03 | NUR ---
MED PASS Due medications given at this time. Patient educated the purpose, side effects of the medications that is given. No signs of respiratory distress noted. Verbalized 4/10 abdominal pain, scheduled pain medication is given. Safety precautions in place. Call light within reach. Will continue to monitor patient.
--- NOTE | 2019-06-11 00:13 | NUR ---
RN ROUNDS Patient asleep at this time. No signs of respiratory distress and discomfort noted. Breathing even and unlabored. IVF infusing well. Call light within reach. Safety precautions in place. Will continue to monitor patient.
[2019-06-11 00:24] VITALS: BP_SYST 104
--- NOTE | 2019-06-11 02:44 | NUR ---
RN ROUNDS Patient asleep at this time, at bedside. No signs of respiratory distress and discomfort noted. Breathing even and unlabored. IVF infusing well. Call light within reach. Safety precautions in place. Will continue to monitor patient.
[2019-06-11] MEDS: ACETAMINOPHEN/CODEINE 300 MG-30 MG TABLET PO SCH ×6 (03:00→23:20)
[2019-06-11] MEDS: PIPERACILLIN/TAZO 4.5GM/DEX-IS 100 ML IV SCH ×3 (05:15→22:00)
[2019-06-11] MEDS: D5/0.45 NS 1,000 ML IV SCH (05:16)
[2019-06-11] MEDS: NORMAL SALINE 5 ML DISP.SYRIN IVF SCH ×3 (05:16→22:00)
--- NOTE | 2019-06-11 06:30 | NUR ---
CLOSING NOTES Patient asleep at this time, at bedside. No signs of respiratory distress and discomfort noted. Breathing even and unlabored. IVF infusing well, patency noted. Abdominal Dressing clean, dry and intact. Colostomy bag was drained by RN, colostomy bag clean, dry and intact. Call light within reach. Bed locked and lowest position. Safety precautions in place. All needs met throughout the shift. Will continue to monitor until endorse to oncoming shift nurse for continuity of care.
[2019-06-11 08:25] VITALS: BP_SYST 124
--- NOTE | 2019-06-11 08:25 | NUR ---
INITIAL ROUNDS Received pt AAOx4, no s/s resp distress, no c/o pain or discomfort. IVF infusing well to LAC at ordered rate with no s/s infiltration to site. Noted dressing to pt's lower abd with drainage and pt's colostomy has drainage-will obtain new materials and then change the bag. Pt cleaned up and washcloth placed to absorb leakage. Plan of care for the day reviewed with pt-pt verbalized his understanding. Pt in Contact isolation precautions. Pain management, skin and safety discussed-teach back done. Call light within reach.
--- NOTE | 2019-06-11 09:35 | NUR ---
COLOSTOMY CHANGE/DRESSING CHANGE/MD Dr. Contreras here and saw pt's wound. MD informed pt that he needs to surgery to clean out the wound tomorrow morning-pt upset-pt stated he is tired of surgeries. Colostomy bag removed, area cleansed with mild soap & warm water, sure prep applied to area, Stoma powder sprinkled around stoma, Odell's ring placed around stoma, new colostomy bag placed. *Low Mid abd wound with tunneling cleansed with normal saline, sure prep applied to per-wound, wound packed with 1/4 inch Iodoform packing strip. Covered with foam dressing, then covered with abd dressing and secured in place with tape. Noted wound bed had 30% red tissue, 70% yellow tissue, no odor, had moderate amount of yellow drainage noted on old dressing. Redness noted to periwound. Measures 3.0 cm x 1.1 cm x 4 cm with tunneling noted. Right abd wound cleansed with normal saline, sure prep applied to area. Covered with a foam dressing. Wound measured 2.0 cm x 9.2 cm x 1.0 cm. Redness to periwound area. Pt's Enedina at bedside. Call light within reach.
[2019-06-11] MEDS: CHOLECALCIFEROL (VITAMIN D3) 2,000 UNIT TABLET PO SCH (09:49)
[2019-06-11] MEDS: MULTIVITAMINS TAB 1 TABLET PO SCH ×2 (09:49→21:59)
[2019-06-11] MEDS ORDERED: BALSAM PERU/CASTOR OIL 60 GM OINT...G. TP ONE (16:00)
[2019-06-11] MEDS ORDERED: EMOLLIENT COMBINATION NO.73 78 GM CREAM..G. TP ONE (16:00)
[2019-06-11 16:50] VITALS: BP_SYST 114; BP_SYST 136
[2019-06-11 19:00] VITALS: BP_SYST 116
--- NOTE | 2019-06-11 19:10 | NUR ---
CLOSING NOTE Pt resting quietly in bed with no s/s resp distress, no c/o pain or discomfort. IVF discontinued as ordered by MD. No leakage noted on abd dressing, colostomy bag not leaking at this time. Contact isolation maintained throughout shift. Pt upset and still wants to talk to Dr. Contreras about the necessity of the surgery-will endorse to next shift nurse that pt has not signed the consent at this time. Needs met, call light within reach.
--- NOTE | 2019-06-11 19:15 | NUR ---
change of shift.pt.presents quiescent affct;calm,resting.pt.scheduled for surgery in the am:06/12/19.per .pt.presents wounds:mid-abdomen;w/ileostomy intact;patent;fluids material present.general status stable.respiratory status stable; unlabored @room air.call light/telephone w/in reach of the pt.
[2019-06-11 20:00] VITALS: BP_SYST 116
--- NOTE | 2019-06-11 20:00 | NUR ---
pt.aSSEsseD.V/S AsSEsseD;VALUES W/IN normal LIMITS.NO C/O PAiN,nAuSEA.ileostomy intact;patent fluids material present. iv access intatct;patent iv lock per pt's requests.pt.capable to ambulate/reposition self.general statu stable.respiratory status stable @room air;02=-sat%=96%.i have apprised the pt. that snacks.beverages are available w/in the shift .no requests posited@this hour. call light/telephone w/in reach of the pt.pt.refused to sign the consent for surgery.pt.stated he wishes to speak w/ the surgeon: .dr.wali veras.
--- NOTE | 2019-06-11 20:05 | NUR ---
rito garcia spoke with leopoldo from
--- NOTE | 2019-06-11 20:30 | NUR ---
returned the page.i apprised the that pt.refused to sign surgery consent until; he has conferred w/the md. apprised me that he had reviewed the surgery;risk/benefits provided the informed consent to the pt./. stated he will attend to the issue 06/12/19.i have apprised the pt.
[2019-06-11] MEDS: EMOLLIENT COMBINATION NO.73 78 GM CREAM..G. TP SCH (21:00)
--- NOTE | 2019-06-11 21:00 | NUR ---
2100pmedicaions administerd.no desiree blair @this hour.call light/telephone w/in reach of the pt.
--- NOTE | 2019-06-11 22:00 | NUR ---
pt.assessed.pt.presents quiescent affect;calm resting viewing programming via telephone.no c/o pain,nausea.no requested posited@this hour. general status stable.respiratory status stable;unlabored:02-sat%=96%.pt.capable to reposition self.call light/telephone w/in reach of the pt.
--- NOTE | 2019-06-11 23:00 | NUR ---
i have administered tylenol;#3 po scheduled dose;q-4hrs.no requests posited @this pour. has presented self.
[2019-06-12] VITALS: BP_SYST 112
--- NOTE | 2019-06-12 | NUR ---
pt.assessed.v/s assessed;values w/in normal limits.no c/o, pain,nausea.no requests posited@this hour.re-iterated to the pt. the diet status:npo:possble surgery;06/12/19.iv access intact;patent;iv lock.general status stable.respiratory status stable;unlabored:02-sat%=96%.pt.capable to reposition self.call light/telephone w/in reach of the pt.ileostomy intact; patent; fluids material present.
--- NOTE | 2019-06-12 02:00 | NUR ---
pt.assessed.pt.presents quiescent affect;calm,somnolent.ileostomy intact;patent;fluids material present. iv access intact .iv locked.general status stable.respiratory status stable;unlabored.pt.capable to reposition self.call light/telephone w/in reach of the pt.
[2019-06-12] MEDS: ACETAMINOPHEN/CODEINE 300 MG-30 MG TABLET PO SCH ×7 (03:00→23:00)
--- NOTE | 2019-06-12 03:00 | NUR ---
pt.has refused the tylenol:#3 po tablet@this hour;scheduled q-4hrs.
--- NOTE | 2019-06-12 04:30 | NUR ---
pt.requested medication;pain;i have administered the tylenol#3 po tab due@0300a. to re-assess the efficacy of the medication pain per pain mgx protocol.
[2019-06-12] MEDS: PIPERACILLIN/TAZO 4.5GM/DEX-IS 100 ML IV SCH ×3 (05:39→21:19)
[2019-06-12] MEDS: NORMAL SALINE 5 ML DISP.SYRIN IVF SCH ×3 (05:40→21:20)
--- NOTE | 2019-06-12 06:24 | NUR ---
pt.assessed.pt.presents quiescent affect;calm,somnolent.i have administered the 83674j dose;zosyn.no c/o pain,nausea. zurdo light/telephone w/in reach of the pt.
[2019-06-12 06:50] LABS: BASOPHILS # (AUTO) 0.1 K/uL (0.0-0.2); BASOPHILS % (AUTO) 1.1 % (0.0-2.0); EOSINOPHILS # (AUTO) 0.7 K/uL (0.0-0.4); EOSINOPHILS % (AUTO) 9.7 % (0.0-4.0); HEMOGLOBIN 12.5 g/dL (14.0-18.0); LYMPHOCYTES # (AUTO) 2.4 K/uL (1.0-5.5); LYMPHOCYTES % (AUTO) 35.2 % (20.5-51.5); MEAN CORPUSCULAR HEMOGLOBIN 30 pg (27-31); MEAN CORPUSCULAR HGB CONC 34 % (32-36); MEAN CORPUSCULAR VOLUME 89 fL (79.0-98.0); MONOCYTES # (AUTO) 0.5 K/uL (0.0-1.0); MONOCYTES % (AUTO) 7.2 % (1.7-9.3); NEUTROPHILS # (AUTO) 3.2 K/uL (1.8-7.7); NEUTROPHILS % (AUTO) 46.8 % (40.0-70.0); PLATELET COUNT (AUTO) 341 K/uL (130-430); RED BLOOD CELL COUNT(AUTO) 4.16 MIL/uL (4.2-6.2); RED CELL DISTRIBUTION WIDTH 13.8 % (9.0-15.0); WHITE BLOOD COUNT (AUTO) 6.8 K/uL (4.8-10.8)
[2019-06-12 06:58] LABS: C-REACTIVE PROTEIN QUANT 3.5 mg/dL (0-0.5); CALCIUM 8.8 mg/dL (8.4-11.0); CREATININE 0.76 mg/dL (0.55-1.30); POTASSIUM 3.6 mmol/L (3.5-5.1)
--- NOTE | 2019-06-12 07:15 | NUR ---
OPENING NOTES PT AWAKE, ALERT, AND ORIENTED. NONLABORED BREATHING NOTED. IV INTACT AND PATENT, NO SIGNS OF INFILTRATION. PATIENT DENIES PAIN. FAMILY AT BEDSIDE. NO ACUTE DISTRESS NOTED. ALL NEEDS MET. CALL LIGHT IN REACH. FALL, ASPIRATION, AND CONTACT PRECAUTIONS IN PLACE. CONTINUE TO MONITOR.
[2019-06-12 08:00] VITALS: BP_SYST 119
[2019-06-12 08:52] LABS: ERYTHROCYTE SEDIMENTATION RATE 81 MM/HR (0-15)
[2019-06-12] MEDS: MULTIVITAMINS TAB 1 TABLET PO SCH ×2 (09:00→21:19)
[2019-06-12] MEDS: CHOLECALCIFEROL (VITAMIN D3) 2,000 UNIT TABLET PO SCH (09:00)
[2019-06-12] MEDS: BALSAM PERU/CASTOR OIL 60 GM OINT...G. TP SCH (09:00)
[2019-06-12] MEDS: EMOLLIENT COMBINATION NO.73 78 GM CREAM..G. TP SCH ×2 (09:00→21:00)
--- NOTE | 2019-06-12 09:49 | NUR ---
ROUTINE MEDS ROUTINE MEDS NOT GIVEN. PT NPO. EDUCATION GIVEN. NO ACUTE DISTRESS NOTED. FAMILY AT BEDSIDE. PT DENIES ANY PAIN. ALL NEEDS MET. CALL LIGHT IN REACH. CONTINUE TO MONITOR.
--- NOTE | 2019-06-12 12:10 | NUR ---
CONSENT SPOKE TO PATIENT REGARDING SURGERY; SURGICAL CONSENT SIGNED BY PATIENT. AT BEDSIDE
[2019-06-12 12:25] VITALS: BP_SYST 137
--- NOTE | 2019-06-12 13:46 | NUR ---
PT TAKEN TO O.R. PT OFF FLOOR.
[2019-06-12] MEDS ORDERED: KETOROLAC TROMETHAMINE 30 MG VIAL IVP PRN (14:30)
[2019-06-12] MEDS ORDERED: fentaNYL CITRATE/PF 100 MCG/2 ML AMP IVP PRN ×2 (14:30)
[2019-06-12] MEDS ORDERED: ONDANSETRON HCL 4 MG/2 ML VIAL IVP PRN (14:30)
[2019-06-12 15:15] VITALS: BP_SYST 109
--- NOTE | 2019-06-12 15:15 | NUR ---
ON UNIT PATIENT RETURNED FROM PACU TO UNIT VIA LELA . STABLE. AWAKE, ALERT AND ORIENTED. Addendum: 06/12/19 at 1812 by Jayne Mendoza RN ON UNIT PATIENT RETURNED FROM PACU TO UNIT VIA LELA BED. STABLE. AWAKE, ALERT AND ORIENTED. RECEIVED REPORT FROM ROCAEL OSMAN. PATIENT HAD A S/P DEBRIDEMENT OF THE ABDOMINAL WALL ABSCESS WITH SURGICAL DRESSING C/D/I. AT BEDSIDE. ALL NEEDS MET. CALL LIGHT IN REACH. CONT TO MONITOR Addendum: 06/12/19 at 1820 by Jayne Mendoza RN INCENTIVE SPIROMETER TEACHING DONE. PATIENT DEMONSTRATED I.S. USE, NOTED ABLE TO DO 1500CC. PATIENT AWARE TO USE I.S. 10X/HR EVERY HOUR. AT BEDSIDE.
[2019-06-12] MEDS: MORPHINE 4 MG/ML INJ. SYRINGE IVP PRN ×2 (15:33→19:56)
--- NOTE | 2019-06-12 15:33 | NUR ---
PRN MEDS PRN PAIN MEDS ADMINISTERED ORDERED PER MD, EDUCATION GIVEN, TOLERATED WELL. FAMILY AT BEDSIDE. ALL NEEDS MET. CALL LIGHT IN REACH. CONTINUE TO MONITOR.,
--- NOTE | 2019-06-12 17:30 | NUR ---
ROUNDS PT AWAKE, ALERT, ORIENTED. FAMILY AT BEDSIDE. PT DENIES PAIN. NO ACUTE DISTRESS NOTED. ALL NEEDS MET. CALL LIGHT IN REACH. CONTINUE TO MONITOR.
--- NOTE | 2019-06-12 17:33 | NUR ---
Nutrition F/U (short note d/t high patient load) RD reviewed pt's current EMR including diet Hx, physician notes, nursing notes, pertinent labs/meds/procedures, care trends, and care activity. Current Diet Order: Regular x0 days Per EMR, pt was away in OR for incision and drainage, debridement of abd wall wound -- post-op Dx of infected lower abd wound. PO intake records indicate poor/fair appetite -- 59% average x6 meals. Pt is likely not meeting optimal nutritional needs. Pt continues to benefit from ONS and wound healing modular. Recommend regular diet w/ Ensure Enlive TID and Sanjay BID (provides an additional ~1230 kcal/day, 65 gm protein/day). Pt remains at high nutritional risk; RD to F/U within 2-3 days. Addendum: 06/12/19 at [address] Liberalized regular diet (pt was previously on low-fat diet) is indicated d/t suboptimal PO intakes. Addendum: 06/12/19 at [address] Nutrition Consult received for non-healing surgical wounds - abd 06/11/19 1544.
--- NOTE | 2019-06-12 18:15 | NUR ---
LOW FAT DIET PT REFUSES REGULAR DIET. DOES NOT FEEL COMFORTABLE ON REGULAR DIET AND REQUEST FOR LOW FAT DIET. SPOKE TO DR. BRITANY QUEEN, RECEIVED ORDERS. ALL NEEDS MET. CALL LIGHT IN REACH. CONTINUE TO MONITOR.
--- NOTE | 2019-06-12 18:45 | NUR ---
CLOSING NOTES PT AWAKE AND ALERT AND ORIENTED. AT BEDSIDE. IV LINE INTACT AND PATENT, NO SIGNS OF INFILTRATION. PAIN MANAGEMENT IS CONTROLLED. NO COMPLAINT OF PAIN AT THIS TIME. WOUND DRESSING INTACT. CLEAN AND DRY. NO ACTIVE BLEEDING NOTED. AFEBRILE. BED IN LOWEST AND LOCKED POSITION. ALL NEEDS MET. CALL LIGHT IN REACH. FALL, CONTACT, AND ASPIRATION PRECAUTIONS IN PLACE. WILL ENDORSE TO NOC NURSE.
--- NOTE | 2019-06-12 19:30 | NUR ---
Pt is lying comfortably in bed fully awake, alert and oriented x4. Pt's is at the bedside. No c/o pain or discomfort and no acute distress noted. Abdominal dressings below and above ileostomy bag are dry and intact. Mid abdominal Ileostomy bag is intact with small amount of liquid brownish stool noted in the bag. Saline lock in LFA is without any sighs of infiltration.
--- NOTE | 2019-06-12 19:56 | NUR ---
Morphine 4mg was given IV for c/o 710 abdominal incisional pain with relief. Fall and safety precautions are in place. Pt's is in the room with pt.
[2019-06-12 20:00] VITALS: BP_SYST 115
--- NOTE | 2019-06-12 21:19 | NUR ---
Pt is resting quietly in bed. No c/o pain or discomfort at this time. Scheduled IV Zosyn hung and IV site is without any signs of infiltration.
--- NOTE | 2019-06-12 23:00 | NUR ---
No c/o pain or discomfort. Pt declined scheduled Tylenol #3. Fall and safety precautions are in place.
--- NOTE | 2019-06-13 00:26 | NUR ---
Sleeping without any distress. Fall and safety precautions are in place.
[2019-06-13 00:38] VITALS: BP_SYST 119
--- NOTE | 2019-06-13 02:25 | NUR ---
Pt is sleeping comfortably in bed. Fall and safety precautions are in place.
[2019-06-13] MEDS: ACETAMINOPHEN/CODEINE 300 MG-30 MG TABLET PO SCH ×6 (03:00→23:00)
--- NOTE | 2019-06-13 04:30 | NUR ---
Pt continues to sleep without any respiratory distress noted. Saline lock is without any signs of infiltration. Fall and safety precautions are in place.
[2019-06-13] MEDS ORDERED: FLU VACC QS2019-20 36MOS UP/PF 60 MCG/0.5 ML SYRINGE I.M. PRN (04:45)
--- NOTE | 2019-06-13 06:30 | NUR ---
Pt is awake and resting comfortably in bed. All pt's needs were attended to. Fall and safety precautions are in place. Saline lock is without any signs of infiltration. Will endorse to day shift nurse.
[2019-06-13] MEDS: NORMAL SALINE 5 ML DISP.SYRIN IVF SCH ×3 (06:43→21:07)
[2019-06-13] MEDS: PIPERACILLIN/TAZO 4.5GM/DEX-IS 100 ML IV SCH ×3 (06:43→21:07)
--- NOTE | 2019-06-13 07:15 | NUR ---
OPENING NOTES PT AWAKE, ALERT, AND ORIENTED. AT BEDSIDE. IV LINE INTACT AND PATENT, NO SIGNS OF INFILTRATION. PAIN MANAGEMENT CONTROLLED. AFEBRILE. ILEOSTOMY DRAINING WELL, MINOR LEAKING. WILL CHANGE ILEOSTOMY AND CHANGE SURGERY DRESSINGS. NO ACUTE DISTRESS NOTED. ALL NEEDS MET. CALL LIGHT IN REACH. WILL CONTINUE TO MONITOR.
--- NOTE | 2019-06-13 07:40 | NUR ---
ILEOSTOMY/ INCISION DRESSINGS CHANGED ILEOSTOMY BAG CHANGE DONE, EDUCATION GIVEN, TOLERATED WELL. NO LEAKING NOTED. ILEOSTOMY CLEAN AND INTACT, DRAINING WELL. INCISION DRESSING CHANGED, EDUCATION GIVEN, TOLERATED WELL. DRESSINGS CLEANED, DRY, AND INTACT. AT BEDSIDE. NO ACUTE DISTRESS NOTED. PT DENIES PAIN AT THIS TIME. ALL NEEDS MET. CALL LIGHT IN REACH. CONTINUE TO MONITOR.
[2019-06-13 08:00] VITALS: BP_SYST 120
[2019-06-13] MEDS: EMOLLIENT COMBINATION NO.73 78 GM CREAM..G. TP SCH ×2 (09:00→21:07)
[2019-06-13] MEDS: BALSAM PERU/CASTOR OIL 60 GM OINT...G. TP SCH (09:00)
[2019-06-13] MEDS: CHOLECALCIFEROL (VITAMIN D3) 2,000 UNIT TABLET PO SCH (09:09)
[2019-06-13] MEDS: MULTIVITAMINS TAB 1 TABLET PO SCH ×2 (09:09→21:06)
[2019-06-13] MEDS: MORPHINE 4 MG/ML INJ. SYRINGE IVP PRN ×2 (09:10→21:06)
--- NOTE | 2019-06-13 09:10 | NUR ---
ROUTINE/ PRN MEDS ROUTINE AND PRN MEDS ADMINISTERED ORDERED PER MD, EDUCATION GIVEN, TOLERATED WELL. AT BEDSIDE. NO ACUTE DISTRESS NOTED. ALL NEEDS MET. CALL LIGHT IN REACH. CONTINUE TO MONITOR.
--- NOTE | 2019-06-13 11:00 | NUR ---
ROUNDS PT AWAKE, ALERT, AND ORIENTED. AT BEDSIDE. NONLABORED BREATHING NOTED. PT DENIES PAIN AT THIS TIME. NO ACUTE DISTRESS NOTED. ALL NEEDS MET. CALL LIGHT IN REACH. CONTINUE TO MONITOR.
--- NOTE | 2019-06-13 11:44 | NUR ---
Discharge Planning: Pt has orders for DC planning-IV zosyn for 7 days and wound care. Pt currently does not have active insurance coverage. Pt is working with [employer] to obtain Medi-Theo. MACHINE OR MACHINERY MECHANIC has emailed Tay with [employer] for an update on pt's Medi-Theo coverage. MACHINE OR MACHINERY MECHANIC will work with CM to check the out of pocket cost for antibiotics. MACHINE OR MACHINERY MECHANIC will ask nurse to get clarification of IV antibiotics-duration and amount. MACHINE OR MACHINERY MECHANIC will follow up.
[2019-06-13 12:16] LABS: INR 1.3 (0.80-1.20); PROTHROMBIN TIME 12.5 SECS (9.5-12.5)
[2019-06-13 12:26] VITALS: BP_SYST 112
--- NOTE | 2019-06-13 12:53 | NUR ---
ROUTINE MEDS ROUTINE MEDS ADMINISTERED ORDERED PER MD, EDUCATION GIVEN, TOLERATED WELL. NO ACUTE DISTRESS NOTED. ALL NEEDS MET. CALL LIGHT IN REACH. CONTINUE TO MONITOR.
--- NOTE | 2019-06-13 13:00 | NUR ---
SEEN AND EXAMINED BY AT BEDSIDE. CONT TO COVER WOUND WITH DRY DRESSING AND ABDOMINAL PAD PER
--- NOTE | 2019-06-13 13:35 | NUR ---
PICC LINE/INSURANCE PATIENT WANTS TO POSTPONE PICC LINE PLACEMENT UNTIL TOMORROW, PENDING ON INSURANCE. PATIENT IS AFRAID INSURANCE WONT GO THROUGH AND PATIENT WILL HAVE TO PAY EVERYTHING OUT OF POCKET. SPOKE TO JAMAL CASE MANAGEMENT AND INFORMED HER OF ABOVE REGARDING PICC LINE. PER JAMAL SHE FOLLOWED UP ON INSURANCE STATUS EARLIER AND IT IS STILL PENDING. SHE WILL FOLLOW UP TOMORROW AND UPDATE PATIENT.
--- NOTE | 2019-06-13 15:45 | NUR ---
ROUNDS PT AWAKE, ALERT, AND ORIENTED WATCHING TV IN BED. AT BEDSIDE. NO ACUTE DISTRESS NOTED. ALL NEEDS MET. CALL LIGHT IN REACH. CONTINUE TO MONITOR.
[2019-06-13] MEDS: MORPHINE 2 MG/ML INJ. SYRINGE IVP PRN (16:07)
--- NOTE | 2019-06-13 16:07 | NUR ---
PRN MEDS PRN MEDS ADMINISTERED ORDERED PER MD, EDUCATION GIVEN, TOLERATED WELL. NO ACUTE DISTRESS NOTED. ALL NEEDS MET. CALL LIGHT IN REACH CONTINUE TO MONITOR.
[2019-06-13 16:29] VITALS: BP_SYST 106
--- NOTE | 2019-06-13 18:00 | NUR ---
ROUNDS PT AWAKE AND ALERT AND ORIENTED. NO ACUTE DISTRESS NOTED. ALL NEEDS MET. CALL LIGHT IN REACH. CONTINUE TO MONITOR.
--- NOTE | 2019-06-13 18:45 | NUR ---
CLOSING NOTES PT AWAKE AND ALERT AND ORIENTED. IV LINE INTACT AND PATENT, NO SIGNS OF INFILTRATION. PT DENIES PAIN AT THIS TIME. WOUND DRESSING CLEAN, DRY, AND INTACT. NO ACTIVE BLEEDING NOTED. AFEBRILE. BED IN LOWEST AND LOCKED POSITION. ALL NEEDS MET. CALL LIGHT IN REACH. FALL AND ASPIRATION PRECAUTIONS IN PLACE. WILL ENDORSE TO NOC NURSE.
--- NOTE | 2019-06-13 19:15 | NUR ---
OPENING NOTES Bedside report received from dayshift nurse. Patient received lying in bed, watching on his phone, no s/s of acute distress noted. Breathing even and unlabored. Patient denies pain at this time. IV site is patent, no signs of infiltration or infection noted. Ileostomy bag attached, abdominal dressing intact, clean, and dry. Call light with patient. Bed is locked and at lowest position. Will continue to monitor.
[2019-06-13 20:00] VITALS: BP_SYST 125
--- NOTE | 2019-06-13 21:06 | NUR ---
PAIN Patient complained of pain. PRN medication administered. Call light with patient. Will continue to monitor.
--- NOTE | 2019-06-13 23:00 | NUR ---
ROUNDS Patient in bed, awake, patient's present at bedside. No s/s of acute distress noted. Breathing even and unlabored. Call light with patient. Will continue to monitor.
[2019-06-14] VITALS: BP_SYST 118
--- NOTE | 2019-06-14 01:00 | NUR ---
ROUNDS Patient sleeping at this time. No signs of discomfort noted. Chest rise and fall even bilaterally. Call light with patient. Will continue to monitor.
[2019-06-14] MEDS: ACETAMINOPHEN/CODEINE 300 MG-30 MG TABLET PO SCH ×6 (03:00→23:14)
--- NOTE | 2019-06-14 03:00 | NUR ---
ROUNDS Patient in bed asleep. No s/s of acute distress noted. Breathing even and unlabored. Call light with patient. Will continue to monitor.
--- NOTE | 2019-06-14 05:00 | NUR ---
ROUNDS Patient in bed sleeping. No signs of discomfort noted. Chest rise and fall even bilaterally. IV antibiotics infusing well. Call light with patient. Will continue to monitor.
[2019-06-14] MEDS: PIPERACILLIN/TAZO 4.5GM/DEX-IS 100 ML IV SCH ×3 (05:15→21:38)
[2019-06-14] MEDS: NORMAL SALINE 5 ML DISP.SYRIN IVF SCH ×3 (05:15→21:38)
--- NOTE | 2019-06-14 06:48 | NUR ---
CLOSING NOTES Patient in bed sleeping at this time. No s/s of acute distress noted. Breathing even and unlabored. Colostomy bag attached, clean, and dry. All needs met throughout shift. Fall and safety precautions maintained throughout shift. Will continue to monitor until patient care is endorsed to oncoming dayshift nurse.
[2019-06-14 07:15] LABS: BASOPHILS # (AUTO) 0.1 K/uL (0.0-0.2); EOSINOPHILS # (AUTO) 0.5 K/uL (0.0-0.4); EOSINOPHILS % (AUTO) 6.2 % (0.0-4.0); HEMATOCRIT 37.3 % (36-54); HEMOGLOBIN 12.7 g/dL (14.0-18.0); LYMPHOCYTES # (AUTO) 2.2 K/uL (1.0-5.5); LYMPHOCYTES % (AUTO) 26.4 % (20.5-51.5); MEAN CORPUSCULAR HEMOGLOBIN 30 pg (27-31); MEAN CORPUSCULAR HGB CONC 34 % (32-36); MEAN CORPUSCULAR VOLUME 88 fL (79.0-98.0); MONOCYTES # (AUTO) 0.7 K/uL (0.0-1.0); MONOCYTES % (AUTO) 8.3 % (1.7-9.3); NEUTROPHILS # (AUTO) 4.8 K/uL (1.8-7.7); NEUTROPHILS % (AUTO) 58.1 % (40.0-70.0); PLATELET COUNT (AUTO) 323 K/uL (130-430); RED BLOOD CELL COUNT(AUTO) 4.24 MIL/uL (4.2-6.2); WHITE BLOOD COUNT (AUTO) 8.2 K/uL (4.8-10.8)
[2019-06-14 07:37] LABS: C-REACTIVE PROTEIN QUANT 1.4 mg/dL (0-0.5); CALCIUM 8.9 mg/dL (8.4-11.0); CREATININE 0.84 mg/dL (0.55-1.30); POTASSIUM 3.6 mmol/L (3.5-5.1)
--- NOTE | 2019-06-14 07:37 | NUR ---
OPENING NOTE Patient resting in the bed. No acute distress. Denied of pain at this time. Skin warm and dry to touch. SL intact to LAC, no redness, no swelling. Ileostomy bag intact, no leakage note at this time. Abdomen dressing intact. Discussed the safety issue, use call light when needs help, and plan of care, verbally understanding. Safety measure maintained. Call light within reached. Bed locked in low position, side rails up. Refused bed alarm, risk and benefit explained, verbally understanding. Will continue to monitor.
[2019-06-14 07:55] VITALS: BP_SYST 128
[2019-06-14 08:11] LABS: ERYTHROCYTE SEDIMENTATION RATE 66 MM/HR (0-15)
[2019-06-14] MEDS: CHOLECALCIFEROL (VITAMIN D3) 2,000 UNIT TABLET PO SCH (09:20)
[2019-06-14] MEDS: MULTIVITAMINS TAB 1 TABLET PO SCH ×2 (09:20→21:37)
[2019-06-14] MEDS: EMOLLIENT COMBINATION NO.73 78 GM CREAM..G. TP SCH ×2 (09:21→21:38)
[2019-06-14] MEDS: BALSAM PERU/CASTOR OIL 60 GM OINT...G. TP SCH ×2 (09:21→20:45)
--- NOTE | 2019-06-14 09:30 | NUR ---
ILEOSTOMY AND WOUND CARE DONE Ileostomy care and bag changed.abdomen wound care done. Patient tolerated procedure well. Safety measure maintained. Bed locked in low position, side rails up. Call light within reached. Continue to monitor.
--- NOTE | 2019-06-14 10:46 | NUR ---
SCHEDULE TYLENOL WITH CODEINE #3 1 TAB PO GIVEN ORDER Patient resting in the bed. No acute distress. Safety measure maintained. Call light within reached. Bed in low position, side rails up. Continue to monitor.
--- NOTE | 2019-06-14 11:20 | NUR ---
ROUND Patient resting in the bed. No acute distress. Safety measure maintained. Call light within reached. Continue to monitor.
[2019-06-14 12:00] VITALS: BP_SYST 123
--- NOTE | 2019-06-14 13:25 | NUR ---
ROUND Patient resting in the bed. No acute distress. Safety measure maintained. Call light within reached. Continue to monitor.
--- NOTE | 2019-06-14 15:15 | NUR ---
WOUND RE-EVALUATION: Patient received in a Alger Bed with an IsoFlex HIMA mattress, awake, alert, and oriented. Patient is able to turn in bed and ambulate independently. Solo Score is a 21. Microbiology: Blood culture results 2 negative. Intrinsic factors that delay wound healing: Surgical changes in abdomen. Extrinsic factors that delay wound healing: Decreased mobility. Wound Assessment: 1. Right Abdomen: Chronic wound (former recent retention suture site), present on admission. Wound bed has 10% black scab, 90% scar tissue. No odor, no drainage. Periwound intact. Wound measures 0.3 cm x 4.0 cm. 2. Right Abdomen, inferior to site 1: Chronic wound (former recent retention suture site), present on admission. Wound bed has scar tissue. No odor, no drainage. Periwound intact. Site measures 0.6 cm x 6.0 cm. Recommend: No dressings needed. Wash Abdomen/involved areas with mild soap and water. Pat dry. Apply Eucerin cream to involved areas. Perform site care twice a day. 3. Right Abdomen, inferior to site 2: Acute on chronic wound (former recent retention suture site), present on admission. Wound bed has 100% pink tissue. No odor, no drainage. Periwound erythematous. Wound measures 0.3 cm x 3.7 cm x 0.1 cm. 4. Right Abdomen, inferior to site 3: Acute on chronic wound (former recent retention suture site), present on admission. Wound bed has 100% pink tissue. No odor, no drainage. Periwound intact. Wound measures 0.5 cm x 7.0 cm x 0.2 cm. Recommend: Cleanse wounds with normal saline. Apply sure prep to corina-wounds. Apply Venelex ointment to wound beds. Cover with gauze, then transparent dressings. Perform wound care daily, and as needed for dressing soiling or dislodgment. 5. Mid Lower Abdomen, superior to Ileostomy site: Acute on chronic wound, present on admission. Wound bed has 95% yellow tissue, 5% pink tissue. No odor, no drainage. Periwound intact. Surrounding tissue inferior is erythematous. Wound measures 1.8 cm x 1.4 cm. Recommend: Cleanse wound with normal saline. Apply sure prep to corina-wound. Apply Venelex ointment to wound bed. Cover with gauze, then transparent dressings. Perform wound care daily, and as needed for dressing soiling or dislodgment. 6. Mid Lower Abdomen, inferior to Ileostomy site: Acute on chronic wound, present on admission. Site is status post I&D and debridement by Dr. Contreras on 06/12/2019. Wound bed has 100% pink tissue. No odor, scant sanguineous drainage. Periwound intact. Surrounding tissue superior is erythematous. Wound measures 6.5 cm x 2.8 cm x 7.0. Recommend: Cleanse wound with normal saline. Apply sure prep to corina-wound. Apply Venelex ointment to wound bed. Pack wound with saline soaked gauze. Cover with transparent dressing. Perform wound care daily, and as needed for dressing soiling or dislodgment. 7. Left Abdomen: Chronic wound (former recent retention suture site), present on admission. Wound bed has 100% pink scar tissue. No odor, no drainage. Periwound intact. Site measures 0.2 cm x 4.5 cm. 8. Left Abdomen, inferior to site 7: Chronic wound (former recent retention suture site), present on admission. Wound bed has 100% pink scar tissue. No odor, no drainage. Periwound intact. Wound measures 0.3 cm x 4.5 cm. 9. Left Abdomen, inferior to site 8: Chronic wound (former recent retention suture site), present on admission. Wound bed has 100% black scab. No odor, no drainage. Periwound intact. Wound measures 0.3 cm x 2.0 cm. Recommend: No dressings needed. Wash Abdomen/involved areas with mild soap and water. Pat dry. Apply Eucerin cream to involved areas. Perform site care twice a day. 10. Left Abdomen, inferior to site 9: Acute on chronic wound (former recent retention suture site), present on admission. Wound bed has 60% red tissue, 40% yellow tissue. No odor, no drainage. Periwound erythematous. Wound measures 1.0 cm x 6.5 cm x 0.4 cm. Recommend: Cleanse wound with normal saline. Apply sure prep to corina-wound. Apply Venelex ointment to wound bed. Cover with gauze, then transparent dressings. Perform wound care daily, and as needed for dressing soiling or dislodgment. 11. Mid Abdomen: Surgical site. Long vertical surgical incision present measuring 25.1 cm x 1.4 cm. Incision stops at Ileostomy site and continues inferior to Ileostomy site. Recommend: No dressings needed. Continue to monitor incision every shift. 12. Abdomen: Ileostomy site. Stoma is red in color, round, and measures 1.4 cm x 1.7 cm. Surrounding tissue has MASD with erythema and non-intact skin, red in color. Recommend: 1. Cleanse Stomal site and surrounding tissue with mild soap and water. Gently pat dry. 2. Perform crusting procedure: Apply stoma powder to reddened and any non-intact skin areas. Dust off with gauze. Repeat 3 times. 3. Apply SurePrep to corina-stomal area and surrounding tissue. Make sure to make stoma powdered areas really sticky with SurePrep. 4. Perform wound/skin care on surrounding tissue/wounds. Pouch may lay on top of transparent dressings. 5. Apply Adapt barrier rings to corina-stomal area and patient's left and right sides of corina-stomal area that has irregular contours/channels. 6. Apply Stoma paste around Eakins ring. 7. Cut ostomy pouch to size and apply to stoma. Hold in place with hand for about 2 minutes for better adherence. Perform Stoma care weekly, and as needed for pouch dislodgement. Also recommend: Encourage and assist patient as needed with repositioning every 2 hours with pillow support and off-load pressure areas with pillows for pressure re-distribution. Offload, elevate and float bilateral heels with pillows. Perform skin care and monitor skin integrity Q shift.
[2019-06-14 16:00] VITALS: BP_SYST 125
--- NOTE | 2019-06-14 17:00 | NUR ---
ROUND Patient resting in the bed and watching TV. No acute distress. Safety measure maintained. Call light within reached. Continue to monitor.
--- NOTE | 2019-06-14 18:30 | NUR ---
CLOSING NOTE Patient resting in the bed. No acute distress. Skin warm and dry to touch. SL intact to LAC, no redness, no swelling. Ileostomy bag intact, no leakage note at this time. Abdomen dressing intact. All needs met. Safety measure maintained. Call light within reached. Bed locked in low position, side rails up. Refused bed alarm, risk and benefit explained, verbally understanding. Will endorse to night nurse.
[2019-06-14] MEDS: MORPHINE 4 MG/ML INJ. SYRINGE IVP PRN (19:19)
[2019-06-14 20:11] VITALS: BP_SYST 109
--- NOTE | 2019-06-14 20:11 | NUR ---
Opening notes Pt AAOx4, watching TV, VSS afebrile. IV saline lock L. AC 22G clear and patent. Ileostomy bag leaking, to be changed. Call light within reach. Bed low, locked, siderails up x2.
--- NOTE | 2019-06-14 20:45 | NUR ---
Ileostomy bag changed Ileostomy bag leaking. Changed abdominal dressings per [facility] specialist order. Ileostomy bag changed cut at 1 1/2 cm, stoma is moist, red and round, surrounding tissue is red in color. Pt pre-medicated prior to dressing changed. Pt tolerated well. To monitor.
--- NOTE | 2019-06-15 00:05 | NUR ---
Rounds Pt awake, resting in bed. VSS. No s/s distress noted. Call light within reach. Bed low, locked, siderails x2 up. To monitor.
[2019-06-15 00:08] VITALS: BP_SYST 109
[2019-06-15] MEDS: ACETAMINOPHEN/CODEINE 300 MG-30 MG TABLET PO SCH ×6 (04:01→21:31)
--- NOTE | 2019-06-15 04:02 | NUR ---
Rounds Pt asleep, easily arousable. Routine pain med given as scheduled. No s/s distress noted. Ileostomy bag intact. Call light within reach. To monitor.
[2019-06-15] MEDS: MORPHINE 4 MG/ML INJ. SYRINGE IVP PRN (05:50)
[2019-06-15] MEDS: PIPERACILLIN/TAZO 4.5GM/DEX-IS 100 ML IV SCH ×2 (05:51→13:25)
[2019-06-15] MEDS: NORMAL SALINE 5 ML DISP.SYRIN IVF SCH ×3 (05:51→21:32)
--- NOTE | 2019-06-15 06:00 | NUR ---
Closing notes/Ileostomy/wound care Pt awake, alert. No s/s distress noted. Ileostomy bag leaking. Wound and Ileostomy bag changed per wound care protocol. Pt pre medicated prior to wound care with Morphine 4mg IVP as needed. Pt had mod amount of soft stool in bag. IV saline lock L FA clear and patent. Pt tolerated well. Call light within reach. To endorse to AM nurse.
[2019-06-15 06:38] LABS: BASOPHILS # (AUTO) 0.1 K/uL (0.0-0.2); BASOPHILS % (AUTO) 0.9 % (0.0-2.0); EOSINOPHILS # (AUTO) 0.6 K/uL (0.0-0.4); EOSINOPHILS % (AUTO) 6.9 % (0.0-4.0); HEMATOCRIT 36.3 % (36-54); HEMOGLOBIN 12.3 g/dL (14.0-18.0); LYMPHOCYTES # (AUTO) 2.7 K/uL (1.0-5.5); MEAN CORPUSCULAR HEMOGLOBIN 30 pg (27-31); MEAN CORPUSCULAR HGB CONC 34 % (32-36); MEAN CORPUSCULAR VOLUME 89 fL (79.0-98.0); MONOCYTES # (AUTO) 0.7 K/uL (0.0-1.0); MONOCYTES % (AUTO) 8.7 % (1.7-9.3); NEUTROPHILS # (AUTO) 4.1 K/uL (1.8-7.7); NEUTROPHILS % (AUTO) 50.5 % (40.0-70.0); PLATELET COUNT (AUTO) 332 K/uL (130-430); RED CELL DISTRIBUTION WIDTH 13.9 % (9.0-15.0); WHITE BLOOD COUNT (AUTO) 8.1 K/uL (4.8-10.8)
[2019-06-15 06:57] LABS: CALCIUM 8.2 mg/dL (8.4-11.0); CREATININE 0.72 mg/dL (0.55-1.30); POTASSIUM 3.6 mmol/L (3.5-5.1)
--- NOTE | 2019-06-15 07:40 | NUR ---
OPENING NOTES: RECEIVED PATIENT FROM COOLING PAN TENDER NURSE. PATIENT IS AWAKE AND ALERT x4 LAYING DOWN IN BED. PATIENT DENIES ANY PAIN AT THE MOMENT. PATIENT IS TOLERATING OXYGEN ON ROOM AIR WITH NO SIGNS OF DISTRESS OR SHORTNESS OF BREATH NOTED. IV SITE IS PATENT WITH NO SIGNS OF INFILTRATION NOTED. ILEOSTOMY BAG INTACT AND DRAINING. PATIENT IN STABLE CONDITION. SAFETY, FALL AND ASPIRATION PRECAUTIONS ARE IN PLACE. BED LOCKED IN LOWEST POSITION WITH CALL LIGHT IN REACH. WILL CONTINUE TO MONITOR PATIENT FOR ANY CHANGES.
[2019-06-15 08:20] VITALS: BP_SYST 120
[2019-06-15] MEDS: MULTIVITAMINS TAB 1 TABLET PO SCH ×2 (08:59→21:31)
[2019-06-15] MEDS: CHOLECALCIFEROL (VITAMIN D3) 2,000 UNIT TABLET PO SCH (08:59)
[2019-06-15] MEDS: EMOLLIENT COMBINATION NO.73 78 GM CREAM..G. TP SCH ×2 (09:04→21:33)
[2019-06-15 10:33] LABS: ERYTHROCYTE SEDIMENTATION RATE 75 MM/HR (0-15)
--- NOTE | 2019-06-15 10:35 | NUR ---
RN ROUNDS: PATIENT IS ASLEEP LAYING DOWN IN BED. NO SIGNS OF DISTRESS OR SHORTNESS OF BREATH NOTED. PATIENT IN STABLE CONDITION. WILL CONTINUE TO MONITOR PATIENT FOR ANY CHANGES.
--- NOTE | 2019-06-15 12:21 | NUR ---
RN ROUNDS: PATIENT IS AWAKE AND ALERT x4 LAYING DOWN IN A CHAIR AT BEDSIDE. NO SIGNS OF DISTRESS OR SHORTNESS OF BREATH NOTED. PATIENT DENIES ANY PAIN AT THE MOMENT. PATIENT IN STABLE CONDITION. WILL CONTINUE TO MONITOR PATIENT FOR ANY CHANGES.
[2019-06-15 13:07] VITALS: BP_SYST 114
--- NOTE | 2019-06-15 14:10 | NUR ---
RN ROUNDS: PATIENT IS AWAKE AND ALERT x4 LAYING DOWN IN A CHAIR AT BEDSIDE. PATIENT DENIES ANY PAIN AT THE MOMENT. NO SIGNS OF DISTRESS OR SHORTNESS OF BREATH NOTED. PATIENT IN STABLE CONDITION. WILL CONTINUE TO MONITOR PATIENT FOR ANY CHANGES.
[2019-06-15 15:34] LABS: C-REACTIVE PROTEIN QUANT 1.4 mg/dL (0-0.5)
--- NOTE | 2019-06-15 15:47 | NUR ---
Nutrition F/U A - RD reviewed pertinent nutrition-related info via EMR (physician notes/nursing notes/labs/meds/nursing care trends/care activity). Admission Dx: Diverticulosis Pt also found w/ surgical site infection w/ intra-abd abscess, possible staph infection per physician notes PMH: morbid obesity, perforated diverticulosis per physician notes Pertinent Medical Info: Pt is POD 3 s/p incision and drainage, debridement of abd wall wound per EMR Current Diet Order/Nutrition Support: Low-fat x2 days Ht: 6'1"/73" Wt: 350#/159 kg -- no changes noted IBW: 184#/84 kg %IBW: 189% Adj IBW (obesity): 226#/103 kg UBW: 380#/173 kg %UBW: 92% % Wt change: 8% wt change within 1 month d/t lack of appetite associated w/ pt per pt BMI: 46.2 kg/m2 (obesity class II) Subjective Info: Pt was seen in recliner bed -- pt reported that his appetite has been improving since yesterday, but prefers to avoid most meats except chicken. Pt reported that he ate some eggs at breakfast and drank Ensure, then ate fruit at lunch w/ Ensure as well. Pt reported that he is enjoying both Ensure and Sanjay supplements and would like to continue them. Per EMR, PO intake records indicate 75% average x7 meals -- pt may not be meeting optimal nutritional needs. RD encouraged pt to try to increase PO intakes. ESTIMATED NUTRITIONAL NEEDS CALORIES/DAY: 9942-9123 kcal/day (MSHJ x 1.2-1.5 CBW for wound healing, infection) PROTEIN/DAY: 129-155 gm/day (1.25-1.5 gm/kg Adj IBW for wound healing, infection) FLUID/DAY: 3-3.9 L/day (1 ml/kcal/day for maintenance) D - Increased nutritional needs related to metabolic demands as evidenced by estimated nutritional requirements for wound healing, infection. *ongoing I - Recommend low-fat diet w/ Ensure Enlive TID, Sanjay BID (provides an additional ~1230 kcal/day, 65 gm protein/day) M - Monitor appetite and PO intakes w/ goal of pt meeting at least 75% of estimated nutritional needs, labs trending WNL, normal GI function, and skin integrity/wt maintenance E - Low Risk; RD to F/U within 7 days
--- NOTE | 2019-06-15 15:51 | NUR ---
Dietitian Recommendations * Recommend low-fat diet w/ Ensure Enlive TID, Sanjay BID (provides an additional ~1230 kcal/day, 65 gm protein/day) LP, RD Please refer to Nutrition F/U for details.
[2019-06-15 16:12] VITALS: BP_SYST 131
--- NOTE | 2019-06-15 18:20 | NUR ---
IV REINSERTION: IV SITE BECAME INFILTRATED. NEW IV SITE INSERTED IN LEFT FOREARM 20G SL. PATIENT TOLERATED IT WELL. SUCCESSFUL AFTER ONE ATTEMPT. ASEPTIC TECHNIQUE USED. IV SITE PATENT WITH NO SIGNS OF INFILTRATION NOTED. WILL CONTINUE TO MONITOR.
--- NOTE | 2019-06-15 18:45 | NUR ---
CLOSING NOTES: PATIENT IS AWAKE AND ALERT x4 LAYING DOWN IN BED. PATIENT DENIES ANY PAIN AT THE MOMENT. PATIENT IS TOLERATING OXYGEN ON ROOM AIR WITH NO SIGNS OF DISTRESS OR SHORTNESS OF BREATH NOTED. IV SITE IS PATENT WITH NO SIGNS OF INFILTRATION NOTED. ILEOSTOMY BAG INTACT AND DRAINING. PATIENT IN STABLE CONDITION. SAFETY, FALL AND ASPIRATION PRECAUTIONS REMAINED IN PLACE THROUGHOUT THE SHIFT. BED LOCKED IN LOWEST POSITION WITH CALL LIGHT IN REACH. WILL ENDORSE PATIENT CARE TO ONCOMING SOCIAL WORK COORDINATOR NURSE.
[2019-06-15 20:00] VITALS: BP_SYST 120
--- NOTE | 2019-06-15 20:00 | NUR ---
received pt in bed v/s and assessment done same stable ,pt medicated for abdominal pain , at bedside.
--- NOTE | 2019-06-15 22:30 | NUR ---
Abdominal dressing and colostomy dressing change done .
--- NOTE | 2019-06-16 | NUR ---
medicated for abdominal pain with morphine .
[2019-06-16] MEDS: MORPHINE 2 MG/ML INJ. SYRINGE IVP PRN (00:26)
[2019-06-16] MEDS: ACETAMINOPHEN/CODEINE 300 MG-30 MG TABLET PO SCH ×6 (03:00→23:00)
--- NOTE | 2019-06-16 04:00 | NUR ---
pt resting in no distress at this time
[2019-06-16] MEDS: NORMAL SALINE 5 ML DISP.SYRIN IVF SCH ×3 (06:54→21:56)
[2019-06-16 07:32] LABS: C-REACTIVE PROTEIN QUANT 1.2 mg/dL (0-0.5); CALCIUM 8.8 mg/dL (8.4-11.0); CREATININE 0.73 mg/dL (0.55-1.30); POTASSIUM 3.6 mmol/L (3.5-5.1)
--- NOTE | 2019-06-16 07:39 | NUR ---
OPENING NOTES: RECEIVED PATIENT FROM MATTRESS INSPECTOR NURSE. PATIENT IS ASLEEP LAYING DOWN IN BED. PATIENT IS TOLERATING OXYGEN ON ROOM AIR WITH NO SIGNS OF DISTRESS OR SHORTNESS OF BREATH NOTED. IV SITE IS PATENT WITH NO SIGNS OF INFILTRATION NOTED. ILEOSTOMY BAG INTACT AND DRAINING. PATIENT IN STABLE CONDITION. SAFETY, FALL AND ASPIRATION PRECAUTIONS ARE IN PLACE. BED LOCKED IN LOWEST POSITION WITH CALL LIGHT IN REACH. WILL CONTINUE TO MONITOR PATIENT FOR ANY CHANGES.
[2019-06-16 07:55] LABS: BASOPHILS # (AUTO) 0.1 K/uL (0.0-0.2); BASOPHILS % (AUTO) 0.8 % (0.0-2.0); EOSINOPHILS # (AUTO) 0.6 K/uL (0.0-0.4); EOSINOPHILS % (AUTO) 5.9 % (0.0-4.0); HEMATOCRIT 36.7 % (36-54); HEMOGLOBIN 12.7 g/dL (14.0-18.0); LYMPHOCYTES # (AUTO) 2.7 K/uL (1.0-5.5); LYMPHOCYTES % (AUTO) 28.3 % (20.5-51.5); MEAN CORPUSCULAR HEMOGLOBIN 30 pg (27-31); MEAN CORPUSCULAR HGB CONC 35 % (32-36); MEAN CORPUSCULAR VOLUME 88 fL (79.0-98.0); MONOCYTES # (AUTO) 0.7 K/uL (0.0-1.0); MONOCYTES % (AUTO) 7.9 % (1.7-9.3); NEUTROPHILS # (AUTO) 5.4 K/uL (1.8-7.7); NEUTROPHILS % (AUTO) 57.1 % (40.0-70.0); PLATELET COUNT (AUTO) 326 K/uL (130-430); RED BLOOD CELL COUNT(AUTO) 4.19 MIL/uL (4.2-6.2); WHITE BLOOD COUNT (AUTO) 9.4 K/uL (4.8-10.8)
[2019-06-16 08:30] VITALS: BP_SYST 132
[2019-06-16] MEDS: EMOLLIENT COMBINATION NO.73 78 GM CREAM..G. TP SCH ×2 (09:23→21:47)
[2019-06-16] MEDS: BALSAM PERU/CASTOR OIL 60 GM OINT...G. TP SCH (09:24)
[2019-06-16] MEDS: CHOLECALCIFEROL (VITAMIN D3) 2,000 UNIT TABLET PO SCH (09:24)
[2019-06-16] MEDS: MULTIVITAMINS TAB 1 TABLET PO SCH ×2 (09:24→21:45)
--- NOTE | 2019-06-16 10:55 | NUR ---
PAGED MD: PAGED DR. MARQUEZ REGARDING ANTIBIOTICS REACHING THE STOP DATE. RECEIVED NEW ORDERS TO CONTINUE ZOSYN FOR SEVEN MORE DAYS. AWARE OF PATIENT'S CONDITION. NEW ORDERS RECEIVED.
[2019-06-16 11:13] LABS: ERYTHROCYTE SEDIMENTATION RATE 75 MM/HR (0-15)
[2019-06-16 12:03] VITALS: BP_SYST 102
--- NOTE | 2019-06-16 12:15 | NUR ---
RN ROUNDS: PATIENT IS AWAKE AND ALERT x4 LAYING DOWN. PATIENT DENIES ANY PAIN AT THE MOMENT. NO SIGNS OF DISTRESS OR SHORTNESS OF BREATH NOTED. PATIENT IN STABLE CONDITION. WILL CONTINUE TO MONITOR PATIENT FOR ANY CHANGES.
[2019-06-16] MEDS: PIPERACILLIN/TAZO 4.5GM/DEX-IS 100 ML IV SCH ×2 (13:40→21:45)
[2019-06-16 13:45] VITALS: BP_SYST 102
--- NOTE | 2019-06-16 14:00 | NUR ---
RN ROUNDS: PATIENT IS AWAKE AND ALERT x4 LAYING IN A CHAIR AT BEDSIDE. PATIENT DENIES ANY PAIN AT THE MOMENT. NO SIGNS OF DISTRESS OR SHORTNESS OF BREATH NOTED. PATIENT IN STABLE CONDITION. WILL CONTINUE TO MONITOR PATIENT FOR ANY CHANGES.
--- NOTE | 2019-06-16 16:20 | NUR ---
RN ROUNDS: PATIENT IS AWAKE AND ALERT x4 LAYING DOWN IN BED. PATIENT DENIES ANY PAIN AT THE MOMENT. NO SIGNS OF DISTRESS OR SHORTNESS OF BREATH NOTED. PATIENT IN STABLE CONDITION. WILL CONTINUE TO MONITOR PATIENT FOR ANY CHANGES.
[2019-06-16 16:30] VITALS: BP_SYST 115
--- NOTE | 2019-06-16 18:45 | NUR ---
CLOSING NOTES: PATIENT IS AWAKE AND ALERT x4 LAYING DOWN IN BED. PATIENT IS TOLERATING OXYGEN ON ROOM AIR WITH NO SIGNS OF DISTRESS OR SHORTNESS OF BREATH NOTED. IV SITE IS PATENT WITH NO SIGNS OF INFILTRATION NOTED. ILEOSTOMY BAG INTACT AND DRAINING. PATIENT IN STABLE CONDITION. SAFETY, FALL AND ASPIRATION PRECAUTIONS REMAINED IN PLACE THROUGHOUT THE SHIFT. BED LOCKED IN LOWEST POSITION WITH CALL LIGHT IN REACH. WILL ENDORSE PATIENT CARE TO ONCOMING GLOBAL MARKETING SPECIALIST NURSE.
--- NOTE | 2019-06-16 19:30 | NUR ---
Opening notes Received report. Patient is resting in bed. No signs of distress noted. Breathing even and unlabored. IV patent and intact, no signs of infiltration noted. Ileostomy noted with loose stools. Dressing to lower abd intact. No needs at this time. Call light with the patient. Safety precautions in place.
[2019-06-16] MEDS: MORPHINE 4 MG/ML INJ. SYRINGE IVP PRN (21:56)
--- NOTE | 2019-06-16 22:00 | NUR ---
Medications/Wound care Medications and prn pain medications given. Educated the action and side effects of medications. Patient verbalized understanding and tolerated well. Wound care and hygiene care done. Patient tolerated well. Photographs of wounds taken. No other needs. Call light with the patient. safety precautions in place.
--- NOTE | 2019-06-17 00:15 | NUR ---
Resting Patient on watching on phone. no signs of distress noted. breathing even and unlabored. No complaints of pain. Refused scheduled tylenol #3. No needs at this time. Call light with the patient. Safety precautions in place.
[2019-06-17 00:22] VITALS: BP_SYST 116
--- NOTE | 2019-06-17 02:30 | NUR ---
Sleeping No signs of distress noted. Breathing even and unlabored. Call light with the patient. Safety precautions in place.
[2019-06-17] MEDS: ACETAMINOPHEN/CODEINE 300 MG-30 MG TABLET PO SCH ×6 (03:00→23:01)
--- NOTE | 2019-06-17 04:37 | NUR ---
Sleeping No signs of distress noted. Breathing even and unlabored. No needs at this time. Call light with the patient. Safety precautions in place.
[2019-06-17 05:46] LABS: C-REACTIVE PROTEIN QUANT 1.9 mg/dL (0-0.5); CREATININE 0.86 mg/dL (0.55-1.30); POTASSIUM 3.8 mmol/L (3.5-5.1)
[2019-06-17] MEDS: PIPERACILLIN/TAZO 4.5GM/DEX-IS 100 ML IV SCH ×3 (06:18→22:47)
[2019-06-17] MEDS: NORMAL SALINE 5 ML DISP.SYRIN IVF SCH ×3 (06:18→22:48)
[2019-06-17 06:33] LABS: BASOPHILS # (AUTO) 0.1 K/uL (0.0-0.2); BASOPHILS % (AUTO) 0.8 % (0.0-2.0); EOSINOPHILS # (AUTO) 0.5 K/uL (0.0-0.4); EOSINOPHILS % (AUTO) 5.1 % (0.0-4.0); HEMATOCRIT 37.1 % (36-54); HEMOGLOBIN 12.6 g/dL (14.0-18.0); LYMPHOCYTES # (AUTO) 2.8 K/uL (1.0-5.5); LYMPHOCYTES % (AUTO) 31.3 % (20.5-51.5); MEAN CORPUSCULAR HEMOGLOBIN 30 pg (27-31); MEAN CORPUSCULAR HGB CONC 34 % (32-36); MEAN CORPUSCULAR VOLUME 89 fL (79.0-98.0); MONOCYTES # (AUTO) 0.9 K/uL (0.0-1.0); MONOCYTES % (AUTO) 10.4 % (1.7-9.3); NEUTROPHILS # (AUTO) 4.7 K/uL (1.8-7.7); NEUTROPHILS % (AUTO) 52.4 % (40.0-70.0); PLATELET COUNT (AUTO) 307 K/uL (130-430); RED BLOOD CELL COUNT(AUTO) 4.19 MIL/uL (4.2-6.2); RED CELL DISTRIBUTION WIDTH 14.2 % (9.0-15.0)
--- NOTE | 2019-06-17 06:50 | NUR ---
Closing notes Patient resting comfortably in bed. No complaints of pain. No signs of distress noted. Breathing even and unlabored. IV ABX infusing. Dressing to abd is clean dry and intact. All needs met throughout the shift. Call light with the patient. Safety precautions in place. Will endorse care to day shift RN.
--- NOTE | 2019-06-17 07:43 | NUR ---
RN OPENING NOTE REPORT WAS ENDORSED BY NIGHT NURSE. PATIENT APPEARS TO BE RESTING BREATHING IS EQUAL AND NON LABORED. ALL SAFETY PRECAUTIONS IN PLACE. NO OTHER NEEDS AT THIS TIME.
[2019-06-17 08:40] VITALS: BP_SYST 128
[2019-06-17 08:44] LABS: ERYTHROCYTE SEDIMENTATION RATE 78 MM/HR (0-15)
[2019-06-17] MEDS: MULTIVITAMINS TAB 1 TABLET PO SCH ×2 (08:48→22:47)
[2019-06-17] MEDS: CHOLECALCIFEROL (VITAMIN D3) 2,000 UNIT TABLET PO SCH (08:48)
[2019-06-17] MEDS: BALSAM PERU/CASTOR OIL 60 GM OINT...G. TP SCH (08:50)
--- NOTE | 2019-06-17 08:50 | NUR ---
medication patients scheduled medication given per order. patient is awake and alert tolerated medication well. no leaking noted from ileostomy bag. patient educated principal solutions architect light, call light is with patient. patient able to demonstrate IS to 3000. patient states he can walk but when he walk to bathroom the ileostomy bag starts to leak. educated will continue to monitor. patient has no complaints at this time. patient has no other needs at this time. will continue to monitor.
[2019-06-17] MEDS: EMOLLIENT COMBINATION NO.73 78 GM CREAM..G. TP SCH ×2 (09:02→21:00)
[2019-06-17] MEDS: MORPHINE 4 MG/ML INJ. SYRINGE IVP PRN ×2 (10:06→14:55)
--- NOTE | 2019-06-17 10:36 | NUR ---
pain medication patient ambulated to bathroom and ileostomy is now leaking. wound care nurse informed, fro support. medicated for pain prior to wound care. patient has call light, educated will gather supplies and let medicine take effect for wound care.
--- NOTE | 2019-06-17 10:40 | NUR ---
WOUND RE-EVALUATION: Late note for 104 secondary to patient care. Patient received in a Sherman Bed with an IsoFlex HIMA mattress, awake, alert, and oriented. Patient is able to turn in bed and ambulate independently. Solo Score is a 21. Microbiology: Blood culture results 2 negative. Intrinsic factors that delay wound healing: Surgical changes in abdomen. Extrinsic factors that delay wound healing: Decreased mobility. Wound Assessment: 1. Right Abdomen: Chronic wound (former recent retention suture site), present on admission. Wound bed has 100% pink scar tissue. No odor, no drainage. Periwound intact. 2. Right Abdomen, inferior to site 1: Chronic wound (former recent retention suture site), present on admission. Wound bed has pink scar tissue. No odor, no drainage. Periwound intact. 3. Right Abdomen, inferior to site 2: Acute on chronic wound (former recent retention suture site), present on admission. Wound bed has 100% pink scar tissue. No odor, no drainage. Periwound erythematous. Recommend continue: No dressings needed. Wash Abdomen/involved areas with mild soap and water. Pat dry. Apply Eucerin cream to involved areas. Perform site care twice a day. 4. Right Abdomen, inferior to site 3: Acute on chronic wound (former recent retention suture site), present on admission. Wound bed has 100% pink tissue. No odor, no drainage. Periwound intact. Measures 0.4 cm x 2.2 cm. Recommend continue: Cleanse wounds with normal saline. Apply sure prep to corina-wounds. Apply Venelex ointment to wound beds. Cover with gauze, then transparent dressings. Perform wound care daily, and as needed for dressing soiling or dislodgment. 5. Mid Lower Abdomen, superior to Ileostomy site: Acute on chronic wound, present on admission. Wound bed has 100% pink tissue. No odor, no drainage. Periwound intact. Surrounding tissue inferior is erythematous. Measures 1.7 cm x 1.2 cm. Recommend continue: Cleanse wound with normal saline. Apply sure prep to corina-wound. Apply Venelex ointment to wound bed. Cover with gauze, then transparent dressings. Perform wound care daily, and as needed for dressing soiling or dislodgment. 6. Mid Lower Abdomen, inferior to Ileostomy site: Acute on chronic wound, present on admission. Site is status post I&D and debridement by Dr. Contreras on 06/12/2019. Wound bed has 100% pink tissue. No odor, scant sanguineous drainage. Periwound intact. Surrounding tissue superior is erythematous. Wound measures 6.0 cm x 3.0 cm x 7.1. Tunnel still at 12 o'clock measuring 6.4 cm. Recommend continue: Cleanse wound with normal saline. Apply sure prep to corina-wound. Apply Venelex ointment to wound bed. Pack wound with saline soaked gauze. Cover with transparent dressing. Perform wound care daily, and as needed for dressing soiling or dislodgment. 7. Left Abdomen: Chronic wound (former recent retention suture site), present on admission. Wound bed has 100% pink scar tissue. No odor, no drainage. Periwound intact. 8. Left Abdomen, inferior to site 7: Chronic wound (former recent retention suture site), present on admission. Wound bed has 100% pink scar tissue. No odor, no drainage. Periwound intact. 9. Left Abdomen, inferior to site 8: Chronic wound (former recent retention suture site), present on admission. Wound bed has 100% black scab. No odor, no drainage. Periwound intact. Recommend continue: No dressings needed. Wash Abdomen/involved areas with mild soap and water. Pat dry. Apply Eucerin cream to involved areas. Perform site care twice a day. 10. Left Abdomen, inferior to site 9: Acute on chronic wound (former recent retention suture site), present on admission. Wound bed has 100% red tissue. No odor, no drainage. Periwound erythematous. Measures 1.0 cm x 6.4 cm. Recommend: Cleanse wound with normal saline. Apply sure prep to corina-wound. Apply Venelex ointment to wound bed. Cover with gauze, then transparent dressings. Perform wound care daily, and as needed for dressing soiling or dislodgment. 11. Mid Abdomen: Surgical site. Long vertical surgical incision present measuring 25.1 cm x 1.4 cm. Incision stops at Ileostomy site and continues inferior to Ileostomy site. Recommend continue: No dressings needed. Continue to monitor incision every shift. 12. Abdomen: Ileostomy site. Stoma is red in color, round. Surrounding tissue has smaller area of MASD with erythema and non-intact skin, red in color. Recommend: 1. Cleanse Stomal site and surrounding tissue with mild soap and water. Gently pat dry. 2. Perform crusting procedure: Apply stoma powder to reddened and any non-intact skin areas. Dust off with gauze. Repeat 3 times. 3. Apply SurePrep to corina-stomal area, powdered tissue and surrounding tissue. Make sure to make stoma powdered areas really sticky with SurePrep. 4. Perform wound/skin care on surrounding tissue/wounds. Pouch may lay on top of transparent dressings. 5. Apply Stomahesive paste around stoma to build up area. 6. Cut ostomy pouch to larger size than stoma, and apply to stoma. Hold in place with hand for about 2 minutes for better adherence. Perform Stoma care weekly, and as needed for pouch leakage or dislodgement. Also recommend continue: Encourage and assist patient as needed with repositioning every 2 hours with pillow support and off-load pressure areas with pillows for pressure re-distribution. Offload, elevate and float bilateral heels with pillows. Perform skin care and monitor skin integrity Q shift.
--- NOTE | 2019-06-17 11:00 | NUR ---
wound care done with wound care nurse. educated to let us know if it starts to leak with him. patient has call light with him. no signs of any distress, no other needs at this time.
[2019-06-17 12:23] VITALS: BP_SYST 129
--- NOTE | 2019-06-17 13:00 | NUR ---
rn rounding patient is laying in chair at bed side. patient is awake and alert no signs of any distress, dressing is clean dry and intact.call light is with him educated to use for assistance. patient has all safety precautions in place. no other needs at this time. will continue to monitor.
--- NOTE | 2019-06-17 15:00 | NUR ---
medication Addendum: 06/17/19 at 1853 by Natasha Choudhury RN medicated for pain medication. patient ambulated with pt and ileostomy is now leaking. educated to use call light is he needs assistance. will gather supplies while medication is setting in. patient verbalized understanding.
--- NOTE | 2019-06-17 16:00 | NUR ---
iv site infiltrated new iv site obtained 22g left hand good blood return, flushing well, will finish antibiotic that has no infused. patient has call light with him educated to use for assistance. IS is with patient educated to continue to use.
[2019-06-17 16:14] VITALS: BP_SYST 115
--- NOTE | 2019-06-17 18:55 | NUR ---
rn closing note patient is laying in bed no signs of any distress, dressing appears clean dry and intact following second dressing change. patient has call light with him educated to use call light for assistance. patient has no complaints at this time.no other needs at this time.
[2019-06-17 20:00] VITALS: BP_SYST 117
--- NOTE | 2019-06-17 21:30 | NUR ---
Resting Patient on watching on phone. no signs of distress noted. breathing even and unlabored. No complaints of pain. No needs at this time. Call light with the patient. Safety precautions in place.
--- NOTE | 2019-06-17 23:00 | NUR ---
Medications given. Educated the action and side effects of medications. Patient verbalized understanding and tolerated well. Ileostomy still intact, dressing clean dry and intact. No other needs. Call light with the patient. Safety precautions in place.
[2019-06-17 23:46] VITALS: BP_SYST 122
--- NOTE | 2019-06-18 02:00 | NUR ---
Sleeping No signs of distress noted. Breathing even and unlabored. No needs. Call light with the patient. Safety precautions in place.
--- NOTE | 2019-06-18 04:00 | NUR ---
Sleeping No signs of distress noted. Breathing even and unlabored. No needs. Call light with the patient. Safety precautions in place.
[2019-06-18 05:58] LABS: ALBUMIN 2.7 g/dL (3.4-4.8); C-REACTIVE PROTEIN QUANT 1.5 mg/dL (0-0.5); CALCIUM 9.2 mg/dL (8.4-11.0); CREATININE 0.78 mg/dL (0.55-1.30); POTASSIUM 3.6 mmol/L (3.5-5.1); TOTAL BILIRUBIN 0.7 mg/dL (0.0-1.0)
[2019-06-18] MEDS: NORMAL SALINE 5 ML DISP.SYRIN IVF SCH ×3 (05:59→21:26)
[2019-06-18] MEDS: PIPERACILLIN/TAZO 4.5GM/DEX-IS 100 ML IV SCH ×3 (05:59→21:25)
[2019-06-18 06:40] LABS: BASOPHILS # (AUTO) 0.1 K/uL (0.0-0.2); EOSINOPHILS # (AUTO) 0.6 K/uL (0.0-0.4); HEMATOCRIT 36.2 % (36-54); LYMPHOCYTES # (AUTO) 2.9 K/uL (1.0-5.5); MEAN CORPUSCULAR HEMOGLOBIN 30 pg (27-31); MEAN CORPUSCULAR HGB CONC 33 % (32-36); MEAN CORPUSCULAR VOLUME 89 fL (79.0-98.0); MONOCYTES # (AUTO) 0.8 K/uL (0.0-1.0); MONOCYTES % (AUTO) 9.1 % (1.7-9.3); NEUTROPHILS # (AUTO) 4.2 K/uL (1.8-7.7); NEUTROPHILS % (AUTO) 48.9 % (40.0-70.0); PLATELET COUNT (AUTO) 304 K/uL (130-430); RED BLOOD CELL COUNT(AUTO) 4.06 MIL/uL (4.2-6.2); RED CELL DISTRIBUTION WIDTH 14.3 % (9.0-15.0); WHITE BLOOD COUNT (AUTO) 8.5 K/uL (4.8-10.8)
--- NOTE | 2019-06-18 06:47 | NUR ---
Closing notes Patient resting in bed. No signs of distress noted. Breathing even and unlabored. IV ABX infusing. Ileostomy noted. All needs met throughout the shift. Call light with the patient. Safety precautions in place. Will endorse care to day shift RN.
[2019-06-18 08:05] LABS: ERYTHROCYTE SEDIMENTATION RATE 77 MM/HR (0-15)
[2019-06-18 08:08] VITALS: BP_SYST 106
[2019-06-18] MEDS: CHOLECALCIFEROL (VITAMIN D3) 2,000 UNIT TABLET PO SCH (09:39)
[2019-06-18] MEDS: MULTIVITAMINS TAB 1 TABLET PO SCH ×2 (09:40→21:26)
[2019-06-18] MEDS: BALSAM PERU/CASTOR OIL 60 GM OINT...G. TP SCH (09:42)
[2019-06-18] MEDS: EMOLLIENT COMBINATION NO.73 78 GM CREAM..G. TP SCH ×2 (09:43→21:26)
[2019-06-18 11:02] VITALS: BP_SYST 139
[2019-06-18 16:01] VITALS: BP_SYST 115
--- NOTE | 2019-06-18 18:29 | NUR ---
Patient notes his dressing with moisture several times, primary leak from left side after initial change at the beginning of the shift. Second time the leak came at the 1600 o'clock position. Currently the dressing was in place since around 1500 hours. Will monitor for further leak and endorse care to night registered nurse. Shai Harrison RN
--- NOTE | 2019-06-18 19:15 | NUR ---
OPENING NOTE Bedside report received lying in bed, watching videos on his phone. No s/s of acute distress noted. Breathing is even and unlabored. Colostomy bag intact, clean, and dry. Patient denies pain at this time. Call light with patient. Bed is locked and at lowest position. Will continue to monitor.
[2019-06-18 20:00] VITALS: BP_SYST 135
--- NOTE | 2019-06-18 20:35 | NUR ---
Paged Dr. Arrington Uche
--- NOTE | 2019-06-18 21:00 | NUR ---
SPOKE WITH DR QUEEN RE: PAIN PRN Dr. Queen made aware of no pain medications PRN at this time, MD gave orders. Will carry out.
[2019-06-18] MEDS ORDERED: HYDROcodone/ACETAMIN 10-325 MG TAB PO PRN (21:15)
[2019-06-18] MEDS ORDERED: HYDROcodone/ACETAMIN 5-325 MG TAB (NORCO/ VICODIN) PO PRN (21:15)
[2019-06-18] MEDS ORDERED: ACETAMINOPHEN 325 MG TABLET PO PRN (21:15)
--- NOTE | 2019-06-18 23:00 | NUR ---
ROUNDS Patient in bed, awake, watching videos on his phone. Patient denies pain, no s/s of acute distress noted. Breathing even and unlabored. Call light with patient. Will continue to monitor.
[2019-06-19] VITALS: BP_SYST 132
--- NOTE | 2019-06-19 01:00 | NUR ---
ROUNDS Patient sleeping at this time. No s/s of acute distress noted. Breathing even and unlabored. Call light with patient. Will continue to monitor.
--- NOTE | 2019-06-19 03:00 | NUR ---
ROUNDS Patient in bed, asleep at this time. No s/s of acute distress noted. Breathing even and unlabored. Call light with patient. Will continue to monitor.
--- NOTE | 2019-06-19 05:00 | NUR ---
ROUNDS Patient in bed, asleep at this time. Patient's present at bedside. No signs of discomfort noted. Chest rise and fall even bilaterally. Call light with patient. Will continue to monitor.
[2019-06-19] MEDS: PIPERACILLIN/TAZO 4.5GM/DEX-IS 100 ML IV SCH ×3 (05:50→21:17)
[2019-06-19] MEDS: NORMAL SALINE 5 ML DISP.SYRIN IVF SCH ×3 (05:50→21:18)
[2019-06-19] MEDS: MORPHINE 2 MG/ML INJ. SYRINGE IVP PRN ×3 (05:56→22:57)
--- NOTE | 2019-06-19 06:28 | NUR ---
CLOSING NOTES Patient in bed, asleep at this time, with his present at bedside. No s/s of acute distress noted. Breathing even and unlabored. IV antibiotics infusing at this time. IV site patent, no signs of infiltration or infection noted. Ileostomy bag in place, clean, and dry. Wound dressings intact, clean, and dry. All needs met throughout shift. Fall and safety precautions maintained throughout shift. Will continue to monitor until patient care is endorsed to oncoming dayshift nurse.
[2019-06-19 07:13] LABS: BASOPHILS # (AUTO) 0.1 K/uL (0.0-0.2); BASOPHILS % (AUTO) 1.2 % (0.0-2.0); EOSINOPHILS # (AUTO) 0.6 K/uL (0.0-0.4); EOSINOPHILS % (AUTO) 6.9 % (0.0-4.0); HEMATOCRIT 37.9 % (36-54); LYMPHOCYTES # (AUTO) 2.4 K/uL (1.0-5.5); LYMPHOCYTES % (AUTO) 29.2 % (20.5-51.5); MEAN CORPUSCULAR HEMOGLOBIN 30 pg (27-31); MEAN CORPUSCULAR HGB CONC 34 % (32-36); MEAN CORPUSCULAR VOLUME 88 fL (79.0-98.0); MONOCYTES # (AUTO) 0.6 K/uL (0.0-1.0); MONOCYTES % (AUTO) 7.9 % (1.7-9.3); NEUTROPHILS # (AUTO) 4.4 K/uL (1.8-7.7); NEUTROPHILS % (AUTO) 54.8 % (40.0-70.0); PLATELET COUNT (AUTO) 298 K/uL (130-430); RED BLOOD CELL COUNT(AUTO) 4.31 MIL/uL (4.2-6.2); RED CELL DISTRIBUTION WIDTH 14.2 % (9.0-15.0); WHITE BLOOD COUNT (AUTO) 8.1 K/uL (4.8-10.8)
[2019-06-19 07:24] LABS: C-REACTIVE PROTEIN QUANT 0.9 mg/dL (0-0.5); CALCIUM 9.1 mg/dL (8.4-11.0); CREATININE 0.74 mg/dL (0.55-1.30); POTASSIUM 3.3 mmol/L (3.5-5.1)
--- NOTE | 2019-06-19 07:30 | NUR ---
Patient in bed, asleep but arousable, A/Ox4, with his present at bedside. IV site intact and patent, no signs of infiltration or infection noted. Ileostomy bag in place, clean, dry and intact. Call light in place, bed locked at the lowest position.
[2019-06-19 08:00] VITALS: BP_SYST 131
[2019-06-19 08:34] LABS: ERYTHROCYTE SEDIMENTATION RATE 78 MM/HR (0-15)
[2019-06-19] MEDS: MULTIVITAMINS TAB 1 TABLET PO SCH ×2 (08:36→21:16)
[2019-06-19] MEDS: CHOLECALCIFEROL (VITAMIN D3) 2,000 UNIT TABLET PO SCH (08:36)
[2019-06-19] MEDS: EMOLLIENT COMBINATION NO.73 78 GM CREAM..G. TP SCH ×2 (08:37→21:17)
[2019-06-19] MEDS: BALSAM PERU/CASTOR OIL 60 GM OINT...G. TP SCH (08:37)
--- NOTE | 2019-06-19 09:10 | NUR ---
patient is seen ambulating around the nursing station after breakfast.
[2019-06-19] MEDS ORDERED: POTASSIUM CHLORIDE 20 MEQ TAB.PRT.SR PO ONE (10:45)
--- NOTE | 2019-06-19 11:35 | NUR ---
Patient is resting at this time, easily arousable A/Ox4, no signs of distress noted.
--- NOTE | 2019-06-19 12:55 | NUR ---
Patient is eating lunch at this time. Tolerating without distress.
[2019-06-19 13:00] VITALS: BP_SYST 131
--- NOTE | 2019-06-19 15:20 | NUR ---
Wound dressing and colostomy is redone. Patient tolerates without distress.
[2019-06-19 16:00] VITALS: BP_SYST 125
--- NOTE | 2019-06-19 17:00 | NUR ---
Patient is resting and watching TV
--- NOTE | 2019-06-19 19:00 | NUR ---
Report is given to [facility]. POC is updated.
[2019-06-19 19:30] VITALS: BP_SYST 119
--- NOTE | 2019-06-19 19:40 | NUR ---
OPENING NOTES Received patient resting in bed, no signs of distress noted. IV patent and intact, no signs of infiltration noted. Ileostomy noted with loose stools, intact with dressing to lower abdomen intact. New water provided, no other needs at this time. Call light with the patient, Bed alarm refused after providing patient education on importance of bed alarm, patient verbalizes understanding, bed at lowest position. Oriented patient to call light and plan of care. Will continue to monitor.
--- NOTE | 2019-06-19 22:10 | NUR ---
Patient provided IV antibiotics and would like to change ileostomy bag for the leak. PRN pain medications to be provided before wound care. Will continue to monitor.
[2019-06-20] VITALS: BP_SYST 121
[2019-06-20 00:10] VITALS: BP_SYST 112
--- NOTE | 2019-06-20 00:10 | NUR ---
Patient is resting, watching television, no distress observed at this time. Will continue to monitor. Addendum: 06/21/19 at 0043 by Jia Daniel RN Late entry for wound care, patient has no distress after dressing change.
[2019-06-20] MEDS: MORPHINE 2 MG/ML INJ. SYRINGE IVP PRN ×3 (03:01→23:56)
[2019-06-20] MEDS: PIPERACILLIN/TAZO 4.5GM/DEX-IS 100 ML IV SCH ×3 (05:44→21:32)
[2019-06-20] MEDS: NORMAL SALINE 5 ML DISP.SYRIN IVF SCH ×3 (05:44→21:32)
[2019-06-20 07:08] LABS: BASOPHILS # (AUTO) 0.1 K/uL (0.0-0.2); BASOPHILS % (AUTO) 1.1 % (0.0-2.0); EOSINOPHILS # (AUTO) 0.7 K/uL (0.0-0.4); EOSINOPHILS % (AUTO) 7.2 % (0.0-4.0); HEMATOCRIT 37.8 % (36-54); HEMOGLOBIN 12.5 g/dL (14.0-18.0); LYMPHOCYTES # (AUTO) 2.5 K/uL (1.0-5.5); LYMPHOCYTES % (AUTO) 25.8 % (20.5-51.5); MEAN CORPUSCULAR HEMOGLOBIN 30 pg (27-31); MEAN CORPUSCULAR HGB CONC 33 % (32-36); MEAN CORPUSCULAR VOLUME 89 fL (79.0-98.0); MONOCYTES # (AUTO) 0.8 K/uL (0.0-1.0); MONOCYTES % (AUTO) 8.6 % (1.7-9.3); NEUTROPHILS # (AUTO) 5.6 K/uL (1.8-7.7); NEUTROPHILS % (AUTO) 57.3 % (40.0-70.0); PLATELET COUNT (AUTO) 297 K/uL (130-430); RED BLOOD CELL COUNT(AUTO) 4.26 MIL/uL (4.2-6.2); RED CELL DISTRIBUTION WIDTH 14.4 % (9.0-15.0); WHITE BLOOD COUNT (AUTO) 9.8 K/uL (4.8-10.8)
--- NOTE | 2019-06-20 07:18 | NUR ---
Patient in bed, asleep but arousable, A/Ox4. IV site intact and patent, no signs of infiltration or infection noted. Ileostomy bag in place, clean, dry and intact. Call light in place, bed locked at the lowest position.
[2019-06-20 07:20] LABS: C-REACTIVE PROTEIN QUANT 1.2 mg/dL (0-0.5); CREATININE 0.66 mg/dL (0.55-1.30); POTASSIUM 3.6 mmol/L (3.5-5.1)
--- NOTE | 2019-06-20 07:20 | NUR ---
CLOSING NOTES Patient is resting, no signs of distress observed at this time. Wound care provided and ostomy bag change provided. SCDs refused, ambulates to the restroom. IV antibiotics provided. All needs met throughout shift. Will endorse care to oncoming shift.
[2019-06-20 08:00] VITALS: BP_SYST 109
[2019-06-20 08:16] LABS: ERYTHROCYTE SEDIMENTATION RATE 75 MM/HR (0-15)
[2019-06-20] MEDS: CHOLECALCIFEROL (VITAMIN D3) 2,000 UNIT TABLET PO SCH (08:43)
[2019-06-20] MEDS: MULTIVITAMINS TAB 1 TABLET PO SCH ×2 (08:43→21:33)
[2019-06-20] MEDS: EMOLLIENT COMBINATION NO.73 78 GM CREAM..G. TP SCH ×2 (08:43→21:00)
[2019-06-20] MEDS: BALSAM PERU/CASTOR OIL 60 GM OINT...G. TP SCH (08:44)
--- NOTE | 2019-06-20 09:40 | NUR ---
patient is seen ambulating around the nursing station after breakfast.
[2019-06-20 12:00] VITALS: BP_SYST 112
--- NOTE | 2019-06-20 12:00 | NUR ---
COLOSTOMY IS LEAKING. DRESSING IS REDONE. PATIENT TOLERATES WITHOUT DISTRESS.
--- NOTE | 2019-06-20 14:28 | NUR ---
PATIENT IS SEEN RESTING, CHEST RISING AND FALLING EVENLY.
[2019-06-20 16:00] VITALS: BP_SYST 119
--- NOTE | 2019-06-20 17:00 | NUR ---
PATIENT IS SEEN WALKING TO THE BATHROOM. TOLERATED WITHOUT DISTRESS.
--- NOTE | 2019-06-20 19:00 | NUR ---
REPORT GIVEN AT BEDSIDE. ALL NEEDS MET, AND DELEGATE CARE NEXT WEEK.
[2019-06-20 19:15] VITALS: BP_SYST 123
--- NOTE | 2019-06-20 19:15 | NUR ---
OPENING NOTES Received patient resting in bed, no distress observed, IV antibiotics running, dressings c/d/i. Ileostomy intact, wound dressing intact, will continue to monitor. Oriented patient to plan of care and call light. Call light within reach, bed alarm refused after patient education provided and patient verbalizes understanding, bed at lowest position. Will continue to monitor.
--- NOTE | 2019-06-20 22:15 | NUR ---
Patient is provided with a warm blanket, no signs of distress at this time. Call light within reach, bed alarm on, bed at lowest position. Will continue to monitor.
[2019-06-21] VITALS: BP_SYST 112
--- NOTE | 2019-06-21 00:03 | NUR ---
Wound care provided and change of ostomy bag provided because of leak. No distress observed. Patient tolerated well. Will continue to monitor.
--- NOTE | 2019-06-21 00:05 | NUR ---
Patient is resting, no signs of distress. Call light within reach, safety precautions in place. Will continue to monitor.
--- NOTE | 2019-06-21 02:00 | NUR ---
Patient is resting, no signs of distress observed. Provided patient with cup of ice. Will continue to monitor.
--- NOTE | 2019-06-21 02:22 | NUR ---
Patient is resting, no signs of distress observed. Ostomy bag emptied, patient does not want wound change at this time, dressing intact. Will continue to monitor.
--- NOTE | 2019-06-21 04:11 | NUR ---
Patient is asleep, rise and fall of chest noted, family at bedside, Will continue to monitor.
[2019-06-21] MEDS: NORMAL SALINE 5 ML DISP.SYRIN IVF SCH ×3 (06:16→21:08)
[2019-06-21] MEDS: PIPERACILLIN/TAZO 4.5GM/DEX-IS 100 ML IV SCH ×3 (06:16→21:09)
--- NOTE | 2019-06-21 06:45 | NUR ---
CLOSING NOTES Patient is resting in bed, no distress observed, IV antibiotics running, dressings c/d/i. Ileostomy intact, wound dressing intact. Call light within reach, bed alarm refused after patient education provided and patient verbalizes understanding, bed at lowest position. Pain medications provided to patient, patient tolerated well. All needs met throughout shift. Will endorse care to oncoming shift.
[2019-06-21] MEDS: MORPHINE 2 MG/ML INJ. SYRINGE IVP PRN ×2 (06:46→21:10)
[2019-06-21] MEDS: EMOLLIENT COMBINATION NO.73 78 GM CREAM..G. TP SCH ×3 (06:54→21:07)
[2019-06-21 07:08] LABS: BASOPHILS # (AUTO) 0.1 K/uL (0.0-0.2); BASOPHILS % (AUTO) 1.2 % (0.0-2.0); EOSINOPHILS # (AUTO) 0.7 K/uL (0.0-0.4); EOSINOPHILS % (AUTO) 6.5 % (0.0-4.0); HEMATOCRIT 37.1 % (36-54); HEMOGLOBIN 12.4 g/dL (14.0-18.0); LYMPHOCYTES % (AUTO) 28.4 % (20.5-51.5); MEAN CORPUSCULAR HEMOGLOBIN 30 pg (27-31); MEAN CORPUSCULAR HGB CONC 33 % (32-36); MEAN CORPUSCULAR VOLUME 89 fL (79.0-98.0); MONOCYTES # (AUTO) 0.9 K/uL (0.0-1.0); NEUTROPHILS # (AUTO) 5.8 K/uL (1.8-7.7); NEUTROPHILS % (AUTO) 54.9 % (40.0-70.0); PLATELET COUNT (AUTO) 283 K/uL (130-430); RED BLOOD CELL COUNT(AUTO) 4.18 MIL/uL (4.2-6.2); RED CELL DISTRIBUTION WIDTH 14.2 % (9.0-15.0); WHITE BLOOD COUNT (AUTO) 10.5 K/uL (4.8-10.8)
[2019-06-21 07:09] LABS: ALBUMIN 2.8 g/dL (3.4-4.8); CALCIUM 8.8 mg/dL (8.4-11.0); CREATININE 0.63 mg/dL (0.55-1.30); POTASSIUM 3.7 mmol/L (3.5-5.1); TOTAL BILIRUBIN 0.7 mg/dL (0.0-1.0)
--- NOTE | 2019-06-21 07:30 | NUR ---
Received patient and endorsed from [facility] shift nurse. Patient in bed, sleeping, side rails x 3 up. Call light with in reach. Breathing even and unlabored. In no acute distress. Denies pain.
[2019-06-21 08:00] VITALS: BP_SYST 126
[2019-06-21] MEDS: MULTIVITAMINS TAB 1 TABLET PO SCH ×2 (09:10→21:07)
[2019-06-21] MEDS: CHOLECALCIFEROL (VITAMIN D3) 2,000 UNIT TABLET PO SCH (09:10)
[2019-06-21] MEDS: BALSAM PERU/CASTOR OIL 60 GM OINT...G. TP SCH (09:11)
[2019-06-21 09:37] LABS: C-REACTIVE PROTEIN QUANT 1.3 mg/dL (0-0.5); ERYTHROCYTE SEDIMENTATION RATE 74 MM/HR (0-15)
[2019-06-21 12:54] VITALS: BP_SYST 117
[2019-06-21 16:15] VITALS: BP_SYST 122
--- NOTE | 2019-06-21 18:30 | NUR ---
Offered ileostomy change and educated benefits, patient refused x 3.
--- NOTE | 2019-06-21 19:10 | NUR ---
Endorsed patient and gave report to NOC shift nurse. Denies pain. Patient in no acute distress. Breathing even and unlabored. Call light with in reach. Side rails x 3 up.
--- NOTE | 2019-06-21 19:20 | NUR ---
OPENING NOTES Patient is resting, A/Ox4, no signs of respiratory distress, ileostomy noted, dressings intact, will continue to monitor. IV site patent, dressings c/d/i. SCDs refused after patient verbalizes understanding of importance and patient education provided. Oriented patient to plan of care and call light use, patient verbalizes back proper use of call light, call light within reach, bed alarm on, bed at lowest position. Will continue to monitor.
[2019-06-21 19:40] VITALS: BP_SYST 119
--- NOTE | 2019-06-21 20:45 | NUR ---
Wound care provided and change of ostomy bag provided from a leak. No distress observed. Patient tolerated well. Will continue to monitor.
[2019-06-22] VITALS: BP_SYST 123
--- NOTE | 2019-06-22 01:25 | NUR ---
Patient is asleep, eyes closed. No signs of distress observed. Will continue to monitor.
--- NOTE | 2019-06-22 04:01 | NUR ---
Patient is resting, no signs of acute respiratory distress observed. IVF running, dressings c/d/i. Will continue to monitor.
[2019-06-22] MEDS: NORMAL SALINE 5 ML DISP.SYRIN IVF SCH ×3 (05:20→22:39)
[2019-06-22] MEDS: PIPERACILLIN/TAZO 4.5GM/DEX-IS 100 ML IV SCH ×3 (05:20→22:19)
--- NOTE | 2019-06-22 05:58 | NUR ---
CLOSING NOTES Patient is resting in bed, no distress observed, family at bedside, IV antibiotics running, dressings c/d/i. Ileostomy intact, wound dressing intact. Call light within reach, bed alarm refused after patient education provided and patient verbalizes understanding, bed at lowest position. Will endorse care to oncoming shift.
[2019-06-22 06:02] LABS: BASOPHILS # (AUTO) 0.1 K/uL (0.0-0.2); BASOPHILS % (AUTO) 1.1 % (0.0-2.0); EOSINOPHILS # (AUTO) 0.7 K/uL (0.0-0.4); EOSINOPHILS % (AUTO) 7.5 % (0.0-4.0); HEMATOCRIT 35.9 % (36-54); LYMPHOCYTES % (AUTO) 33.7 % (20.5-51.5); MEAN CORPUSCULAR HEMOGLOBIN 30 pg (27-31); MEAN CORPUSCULAR HGB CONC 33 % (32-36); MEAN CORPUSCULAR VOLUME 89 fL (79.0-98.0); MONOCYTES # (AUTO) 0.8 K/uL (0.0-1.0); MONOCYTES % (AUTO) 8.7 % (1.7-9.3); NEUTROPHILS # (AUTO) 4.3 K/uL (1.8-7.7); PLATELET COUNT (AUTO) 290 K/uL (130-430); RED BLOOD CELL COUNT(AUTO) 4.04 MIL/uL (4.2-6.2); RED CELL DISTRIBUTION WIDTH 14.2 % (9.0-15.0); WHITE BLOOD COUNT (AUTO) 8.8 K/uL (4.8-10.8)
[2019-06-22 08:00] VITALS: BP_SYST 121
[2019-06-22] MEDS: EMOLLIENT COMBINATION NO.73 78 GM CREAM..G. TP SCH ×2 (09:00→21:00)
[2019-06-22] MEDS: CHOLECALCIFEROL (VITAMIN D3) 2,000 UNIT TABLET PO SCH (09:00)
[2019-06-22] MEDS: BALSAM PERU/CASTOR OIL 60 GM OINT...G. TP SCH (09:00)
[2019-06-22] MEDS: MULTIVITAMINS TAB 1 TABLET PO SCH ×2 (09:00→22:19)
[2019-06-22 11:03] LABS: ERYTHROCYTE SEDIMENTATION RATE 83 MM/HR (0-15)
--- NOTE | 2019-06-22 11:06 | NUR ---
WOUND RE-EVALUATION: Patient received in a [place] Bed with an IsoFlex HIMA mattress, awake, alert, and oriented. Patient is able to turn in bed and ambulate independently. Solo Score is a 21. Microbiology: Blood culture results 2 negative. Intrinsic factors that delay wound healing: Surgical changes in abdomen. Extrinsic factors that delay wound healing: Decreased mobility. Wound Assessment: 1. Right Abdomen: Chronic wound (former recent retention suture site), present on admission. Wound bed has 100% pink scar tissue. No odor, no drainage. Periwound intact. 2. Right Abdomen, inferior to site 1: Chronic wound (former recent retention suture site), present on admission. Wound bed has pink scar tissue. No odor, no drainage. Periwound intact. 3. Right Abdomen, inferior to site 2: Acute on chronic wound (former recent retention suture site), present on admission. Wound bed has 100% pink scar tissue. No odor, no drainage. Periwound erythematous. 4. Right Abdomen, inferior to site 3: Acute on chronic wound (former recent retention suture site), present on admission. Wound bed has 100% pink tissue. No odor, no drainage. Periwound intact. Recommend continue: No dressings needed. Wash Abdomen/involved areas with mild soap and water. Pat dry. Apply Eucerin cream to involved areas. Perform site care twice a day. 5. Mid Lower Abdomen, superior to Ileostomy site: Acute on chronic wound, present on admission. Wound bed has 10% pink tissue, 90% white tissue. No odor, no drainage. Periwound intact. Measures 0.8 cm x 0.8 cm. Recommend continue: Cleanse wound with normal saline. Apply sure prep to corina-wound. Apply Venelex ointment to wound bed. Cover with gauze, then transparent dressings. Perform wound care daily, and as needed for dressing soiling or dislodgment. 6. Mid Lower Abdomen, inferior to Ileostomy site: Acute on chronic wound, present on admission. Site is status post I&D and debridement by Dr. Contreras on 06/12/2019. Wound bed has 100% pink tissue. No odor, scant sanguineous drainage. Periwound intact. Surrounding tissue superior is erythematous. Wound measures 4.2 cm x 2.4 cm x 6.5. Tunnel still at 12 o'clock, measuring 6.5 cm. Recommend continue: Cleanse wound with normal saline. Apply sure prep to corina-wound. Apply Venelex ointment to wound bed. Pack wound with saline soaked gauze. Cover with transparent dressing. Perform wound care daily, and as needed for dressing soiling or dislodgment. 7. Left Abdomen: Chronic wound (former recent retention suture site), present on admission. Wound bed has 100% pink scar tissue. No odor, no drainage. Periwound intact. 8. Left Abdomen, inferior to site 7: Chronic wound (former recent retention suture site), present on admission. Wound bed has 100% pink scar tissue. No odor, no drainage. Periwound intact. 9. Left Abdomen, inferior to site 8: Chronic wound (former recent retention suture site), present on admission. Wound bed has 100% black scab. No odor, no drainage. Periwound intact. Recommend continue: No dressings needed. Wash Abdomen/involved areas with mild soap and water. Pat dry. Apply Eucerin cream to involved areas. Perform site care twice a day. 10. Left Abdomen, inferior to site 9: Acute on chronic wound (former recent retention suture site), present on admission. Wound bed has 100% pink tissue. No odor, no drainage. Periwound erythematous. Measures 0.5 cm x 4.5 cm. Recommend continue: Cleanse wound with normal saline. Apply sure prep to corina-wound. Apply Venelex ointment to wound bed. Cover with gauze, then transparent dressings. Perform wound care daily, and as needed for dressing soiling or dislodgment. 11. Mid Abdomen: Surgical site. Long vertical surgical incision. Incision stops at Ileostomy site and continues inferior to Ileostomy site. Recommend continue: No dressings needed. Continue to monitor incision every shift. 12. Abdomen: Ileostomy site. Stoma is red in color, round. Surrounding tissue has even smaller area of erythema. Recommend: 1. Cleanse Stomal site and surrounding tissue with mild soap and water. Gently pat dry. 2. Perform crusting procedure: Apply stoma powder to reddened and any non-intact skin areas. Dust off with gauze. Repeat 3 times. 3. Apply SurePrep to corina-stomal area, powdered tissue and surrounding tissue. Make sure to make stoma powdered areas really sticky with SurePrep. 4. Perform wound/skin care on surrounding tissue/wounds. Pouch may lay on top of transparent dressings. 5. Apply Stomahesive paste around stoma to build up area. 6. Cut ostomy pouch to larger size than stoma (to about 4.5 cm cut line), and apply to stoma. Hold in place with hand for about 2 minutes for better adherence. Perform Stoma care weekly, and as needed for pouch leakage or dislodgement. Also recommend continue: Encourage and assist patient as needed with repositioning every 2 hours with pillow support and off-load pressure areas with pillows for pressure re-distribution. Offload, elevate and float bilateral heels with pillows. Perform skin care and monitor skin integrity Q shift. Discharge planning: Continue with same supplies and care at home (patient still has contact with the vendor - [employer], and will continue to supply the patient with the items needed). Will contact vendor and request one more supply to improve product adhesion: [employer] barrier extenders (Stock number: [id number], HCPCS: [id number], box of 30). Also will recommend: [employer] Bieber Remover Wipes (Stock: [id number], HCPCS: [id number]) for paste/adhesive removal.
[2019-06-22 11:38] LABS: CALCIUM 8.9 mg/dL (8.4-11.0); CREATININE 0.57 mg/dL (0.55-1.30); POTASSIUM 3.4 mmol/L (3.5-5.1)
[2019-06-22 11:42] LABS: C-REACTIVE PROTEIN QUANT 1.2 mg/dL (0-0.5)
--- NOTE | 2019-06-22 11:44 | NUR ---
Discharge planning: The vendor ([employer]) will continue to supply the patient with the same supplies. They will also add some [employer] barrier extenders (Stock number: [id number]) for better pouch adhesion, and [employer] [place] Remover Wipes (Stock: [id number]) for paste/adhesive removal.
[2019-06-22 12:22] VITALS: BP_SYST 147
--- NOTE | 2019-06-22 15:21 | NUR ---
Nutrition F/U A - RD reviewed pertinent nutrition-related info via EMR (physician notes/nursing notes/labs/meds/nursing care trends/care activity). Admission Dx: Diverticulosis Pt also found w/ surgical site infection w/ intra-abd abscess, possible staph infection per physician notes PMH: morbid obesity, perforated diverticulosis per physician notes Pertinent Medical Info: Pt is POD 10 s/p incision and drainage, debridement of abd wall wound 06/12/19 per EMR Current Diet Order/Nutrition Support: Low-fat x7 days Ht: 6'1"/73" Wt: 350#/159 kg -- no changes noted 06/22/19 IBW: 184#/84 kg %IBW: 189% Adj IBW (obesity): 226#/103 kg UBW: 380#/173 kg %UBW: 92% % Wt change: 8% wt change within 1 month d/t lack of appetite associated w/ pt per pt BMI: 46.2 kg/m2 (obesity class II) Subjective Info: Pt was seen resting in bed at time of RD visit. Pt reported that his appetite has been stable, continues to tolerate diet well. Pt reported that he still enjoys Ensure Enlive (vanilla flavor) and Sanjay (orange flavor) supplements and intends to continue them when he goes home. Pt reported that he is on his second to last day of Abx treatment and may be D/C tomorrow. Per EMR, PO intake records indicate 56% average x19 meals. RD encouraged pt to continue to increase PO intakes for adequate nutrition. ESTIMATED NUTRITIONAL NEEDS CALORIES/DAY: 9227-7627 kcal/day (MSHJ x 1.2-1.5 CBW for wound healing, infection) PROTEIN/DAY: 129-155 gm/day (1.25-1.5 gm/kg Adj IBW for wound healing, infection) FLUID/DAY: 3-3.9 L/day (1 ml/kcal/day for maintenance) D - Increased nutritional needs related to metabolic demands as evidenced by estimated nutritional requirements for wound healing, infection. *ongoing I - Recommend continuing low-fat diet w/ Ensure Enlive TID, Sanjay BID (provides an additional ~1230 kcal/day, 65 gm protein/day) M - Monitor appetite and PO intakes w/ goal of pt meeting at least 75% of estimated nutritional needs, labs trending WNL, normal GI function, and skin integrity/wt maintenance E - Low Risk; RD to F/U within 7 days
--- NOTE | 2019-06-22 15:23 | NUR ---
Dietitian Recommendations * Recommend continuing low-fat diet w/ Ensure Enlive TID, Sanjay BID (provides an additional ~1230 kcal/day, 65 gm protein/day) LP, RD Please refer to Nutrition F/U for details.
[2019-06-22] MEDS: MORPHINE 2 MG/ML INJ. SYRINGE IVP PRN ×2 (15:51→20:31)
[2019-06-22 16:30] VITALS: BP_SYST 118
--- NOTE | 2019-06-22 17:46 | NUR ---
PAGED PAGED BRITANY MARSHALL AT [phone] SPOKE WITH NARCISA.
[2019-06-22] MEDS ORDERED: POTASSIUM CHLORIDE 20 MEQ TAB.PRT.SR PO ONE (19:30)
[2019-06-22 20:00] VITALS: BP_SYST 117
--- NOTE | 2019-06-22 22:00 | NUR ---
Medications given. Educated the action and side effects of medications. Patient verbalized understanding and tolerated well. No other needs. Call light with the patient. Safety precautions in place.
[2019-06-23 00:06] VITALS: BP_SYST 119
--- NOTE | 2019-06-23 00:30 | NUR ---
Resting Patient is resting in bed, talking to . No signs of distress noted. Breathing even and unlabored. Provided patient with ice water and apple juice. No other needs. Call light with the patient. Safety precautions in place.
--- NOTE | 2019-06-23 03:00 | NUR ---
Sleeping No signs of distress noted. Breathing even and unlabored. No needs. Call light with the patient. Safety precautions in place.
--- NOTE | 2019-06-23 05:30 | NUR ---
Dressing checked still clean and dry. No leaking noted. Reinforced dressing with tegaderm. No other needs at this time. Call light with the patient. Safety precautions in place.
[2019-06-23] MEDS: NORMAL SALINE 5 ML DISP.SYRIN IVF SCH (06:17)
--- NOTE | 2019-06-23 06:35 | NUR ---
Closing notes Patient resting in bed, no signs of distress noted. Breathing even and unlabored. IV patent and intact, no signs of infiltration noted. Zosyn reached stopped date. Spoke to Dr. Blevins and informed him that the zosyn is discontinued. Inquired if MD wanted to continue zosyn for the rest of this day as this is still the 7th day. MD stated "No, it is okay." All needs met throughout the shift. Call light with the patient. Safety precautions in place. Will endorse care to day shift RN.
[2019-06-23 06:48] LABS: BASOPHILS # (AUTO) 0.1 K/uL (0.0-0.2); BASOPHILS % (AUTO) 1.2 % (0.0-2.0); EOSINOPHILS # (AUTO) 0.8 K/uL (0.0-0.4); EOSINOPHILS % (AUTO) 8.6 % (0.0-4.0); HEMATOCRIT 37.8 % (36-54); HEMOGLOBIN 12.5 g/dL (14.0-18.0); LYMPHOCYTES # (AUTO) 2.9 K/uL (1.0-5.5); LYMPHOCYTES % (AUTO) 32.9 % (20.5-51.5); MEAN CORPUSCULAR HEMOGLOBIN 29 pg (27-31); MEAN CORPUSCULAR HGB CONC 33 % (32-36); MEAN CORPUSCULAR VOLUME 89 fL (79.0-98.0); MONOCYTES # (AUTO) 0.8 K/uL (0.0-1.0); MONOCYTES % (AUTO) 8.5 % (1.7-9.3); NEUTROPHILS # (AUTO) 4.3 K/uL (1.8-7.7); NEUTROPHILS % (AUTO) 48.8 % (40.0-70.0); PLATELET COUNT (AUTO) 270 K/uL (130-430); RED BLOOD CELL COUNT(AUTO) 4.24 MIL/uL (4.2-6.2); RED CELL DISTRIBUTION WIDTH 14.5 % (9.0-15.0); WHITE BLOOD COUNT (AUTO) 8.9 K/uL (4.8-10.8)
--- NOTE | 2019-06-23 07:35 | NUR ---
INITIAL NOTE PT RESTING IN BED, NO ACUTE DISTRESS NOTED, BREATHING EVEN AND UNLABORED. IV SALINE LOCKED. SCDS IN PLACE. CALL LIGHT WITHIN REACH, BED IN LOW AND LOCKED POSITION. EDUCATED PT ON SAFETY AND PURPOSE OF BED ALARM, PT VERBALIZED UNDERSTANDING. PT REFUSING BED ALARM.
[2019-06-23 08:00] VITALS: BP_SYST 128
[2019-06-23] MEDS: MULTIVITAMINS TAB 1 TABLET PO SCH (08:25)
[2019-06-23] MEDS: CHOLECALCIFEROL (VITAMIN D3) 2,000 UNIT TABLET PO SCH (08:25)
[2019-06-23] MEDS: EMOLLIENT COMBINATION NO.73 78 GM CREAM..G. TP SCH (08:26)
[2019-06-23] MEDS: BALSAM PERU/CASTOR OIL 60 GM OINT...G. TP SCH (08:26)
[2019-06-23 08:34] LABS: CALCIUM 9.2 mg/dL (8.4-11.0); CREATININE 0.73 mg/dL (0.55-1.30); POTASSIUM 3.6 mmol/L (3.5-5.1)
--- NOTE | 2019-06-23 09:30 | NUR ---
RN ROUNDS PT RESTING, NO ACUTE DISTRESS NOTED, BREATHING EVEN AND UNLABORED
[2019-06-23] MEDS ORDERED: HYDR-4272 PO (10:00)
--- NOTE | 2019-06-23 10:00 | NUR ---
Edward AUSTIN MD AT BEDSIDE EXAMINING PT.
[2019-06-23 10:16] VITALS: BP_SYST 128
--- NOTE | 2019-06-23 10:28 | NUR ---
DR. NEWTON SPOKE WITH MD AT NURSES STATION, INFORMED MD OF DISCHARGE FOR TODAY. MD TO CLEAR PT FOR DISCHARGE. VERIFIED WITH READ BACK.
[2019-06-23 11:00] VITALS: BP_SYST 114
--- NOTE | 2019-06-23 11:30 | NUR ---
RN ROUNDS PT AWAKE, NO CHANGE IN ASSESSMENT. WILL CONTINUE TO MONITOR.
--- NOTE | 2019-06-23 12:25 | NUR ---
DISCHARGE NOTE DISCHARGE INSTRUCTIONS GIVEN TO PT. PT REFUSED WRITTEN PRESCRIPTIONS. WAS PAGE. ALL BELONGINGS WITH PT. WOUND CARE DONE, PT TOLERATED WELL. IV CATHETER REMOVED, CATHETER INTACT, NO BLEEDING. HOSPITAL ID BAND REMOVED. AT BEDSIDE TO TAKE PT HOME VIA PERSONAL AUTOMOBILE. ESCORTED PT VIA WHEELCHAIR TO [facility] PARKING LOT.
--- NOTE | 2019-06-23 12:30 | NUR ---
DR. QUEEN SPOKE WITH MD VIA PHONE, INFORMED MD THAT PT WAS INSTRUCTED BY DR. BRONSON TO NOT TAKE NORCO DUE TO CONSTIPATION SIDE EFFECTS. PT REFUSED PRESCRIPTIONS THAT WERE WRITTEN BY ADMITTING MD. MD AWARE. IF PT REQUESTS FOR PAIN MEDICATIONS, PT MAY CONTACT MD OFFICE. PT IS DISCHARGE, WILL INFORM PT VIA PHONE.
== END 2019-06-23 12:25 | disposition home or self-care (01) | DRG 856 ==
LOC: SED 05:00 → SMU 09:23
PROVIDERS: ADMIT Preventive Medicine Preventive Medicine/Occupational Environmental Medicine; ATTEND Preventive Medicine Preventive Medicine/Occupational Environmental Medicine
PROC: 0J980ZZ Drainage of Abdomen Subcutaneous Tissue and Fascia, Open Approach (ICD-10-PCS; principal; 2019-06-12 13:50)
DX: T81.41XA Infection following a procedure, superficial incisional surgical site, initial encounter (principal); K65.1 Peritoneal abscess; E43 Unspecified severe protein-calorie malnutrition; A41.51 Sepsis due to Escherichia coli [E. coli]; A41.1 Sepsis due to other specified staphylococcus; Z68.42 Body mass index [BMI] 45.0-49.9, adult; E87.1 Hypo-osmolality and hyponatremia; N39.0 Urinary tract infection, site not specified; L03.311 Cellulitis of abdominal wall; T81.31XA Disruption of external operation (surgical) wound, not elsewhere classified, initial encounter; R65.10 Systemic inflammatory response syndrome (SIRS) of non-infectious origin without acute organ dysfunction; B95.1 Streptococcus, group B, as the cause of diseases classified elsewhere; B96.20 Unspecified Escherichia coli [E. coli] as the cause of diseases classified elsewhere; D64.9 Anemia, unspecified; F14.10 Cocaine abuse, uncomplicated; R73.9 Hyperglycemia, unspecified; K57.90 Diverticulosis of intestine, part unspecified, without perforation or abscess without bleeding; E88.09 Other disorders of plasma-protein metabolism, not elsewhere classified; E66.01 Morbid (severe) obesity due to excess calories; Y83.8 Other surgical procedures as the cause of abnormal reaction of the patient, or of later complication, without mention of misadventure at the time of the procedure; Z93.2 Ileostomy status; Z90.49 Acquired absence of other specified parts of digestive tract; Z93.3 Colostomy status; Z79.899 Other long term (current) drug therapy; Y92.89 Other specified places as the place of occurrence of the external cause
CPT/HCPCS: 36415; 71045; 80048; 80053; 81000-TC; 83605; 85025; 85610-TC; 85651-TC; 85730-TC; 86140; 87040-TC; 87070-TC; 87081; 87186-TC; 94010; 96361; 96365; 96375; 99285; A4371; A4421; J0690; J0696; J0878; J1200; J2250; J2270; J2405; J2543; J2704; J3010; J7042; J7120; Q9967

== ENCOUNTER 2019-06-28 00:57 | Emergency (ER) | payer OTHER ==
[~2019-06-28] VITALS: Ht 185.4 cm; Wt 163.3 kg
[~2019-06-28 00:57] MED LIST changes: +HYDR-4272 PO; +TYC3 PO
[2019-06-28 01:15] VITALS: BP_SYST 128
--- NOTE | 2019-06-28 02:04 | NUR ---
Patient to ER bed 02 to gown for evaluation. Side rails up.
--- NOTE | 2019-06-28 02:22 | NUR ---
Pt presents to ER with with c/o abdominal burning pain. Pt A&Ox4. Pt states non radiating abdominal pain. Pt describes pain as burning and says pain is 8/10. Pt states pain began yesterday. Pt states intermittent pruritis. Upon assessment, pt has ileostomy in lower middle abdomen. Abdomen has red discoloration noted. When asked. Pt states pain is more on skin that in abdomen. Per pt , she ran out of tape and started using paper tape yesterday. Breath sounds bilaterally clear and even with no use of accessory muscles. Will continue to monitor.
--- NOTE | 2019-06-28 03:06 | NUR ---
ER Dr. Cross at bedside examining patient.
[2019-06-28] MEDS ORDERED: MORPHINE 4 MG/ML INJ. SYRINGE IM ONE (03:15)
--- NOTE | 2019-06-28 03:44 | NUR ---
Pt ileostomy cleaned and bag changed. New abdominal pad provided.
--- NOTE | 2019-06-28 04:25 | NUR ---
Pt medicated with morphine IM. Pt tolerated well.
[2019-06-28 04:55] VITALS: BP_SYST 132
--- NOTE | 2019-06-28 04:55 | NUR ---
Patient given written and verbal discharge instructions and verbalizes understanding. ER MD Cross discussed with patient the results and treatment provided. Patient in stable condition. ID arm band removed. Rx of tylenol and triamcinolone acetonide given. Patient educated on pain management and to follow up with PMD. Pain Scale 1/10. Opportunity for questions provided and answered. Medication side effect fact sheet provided.
== END 2019-06-28 04:55 | disposition home or self-care (01) ==
LOC: SED 00:57
DX: L25.9 Unspecified contact dermatitis, unspecified cause (principal); Z79.899 Other long term (current) drug therapy
CPT/HCPCS: 96372; 99283; A5061; J2270; A4421